=== PATIENT | male | born 1960 | race Two or more races ===

== ENCOUNTER 2025-02-28 11:28 | Inpatient (IN) | payer MEDICAID, OTHER ==
[~2025-02-28] VITALS: Ht 172.7 cm; Wt 53.2 kg
--- NOTE | 2025-02-28 11:53 | ED.PDOC ---
GI ASSESSMENT HPI Comments 64 y.o male presents to the ED for a chief complaint of nausea and vomiting that started 2 days ago. Patient states having a 3 vessel CABG on 02/13/25 at [facility] and at that time was experiencing chest pain. Patient states since being d/c from hospital, has no experienced chest pain. He denies any abdominal pain, fever, chills, diarrhea, runny nose, cough or sore throat. Chief Complaint: Nausea/Vomiting Time Seen by MD: 11:37 Reviewed Notes: Nurses Notes, Medications, Allergies Allergies: Coded Allergies: NO KNOWN ALLERGIES (Unverified , 02/28/25) Information Source: Patient Mode of Arrival: Ambulatory Timing: Days (2) Duration: Since onset Quality: None Vomitus: Hard Severity: Moderate Recent: None Recent Hx of: None Pain Location: None Modifying Factors: Nothing Associated sign and symptoms: Nausea, Vomiting Past Medical History Surgical History: CABG Family History Family History: Reviewed,noncontributory to illness Social History Smoker: Non-Smoker Alcohol: Denies ETOH Use Drugs: Denies Drug Use Lives In: Home Constitutional: denies: chills, diaphoresis, fatigue, fever, malaise, sweats, weakness, others EENTM: denies: blurred vision, double vision, ear bleeding, ear discharge, ear drainage, ear pain, ear ringing, eye pain, eye redness, hearing loss, mouth pain, mouth swelling, nasal discharge, nose bleeding, nose congestion, nose pain, photophobia, tearing, throat pain, throat swelling, voice changes, others Respiratory: denies: cough, hemoptysis, orthopnea, SOB at rest, shortness of breath, SOB with excertion, stridor, wheezing, others Cardiovascular: denies: chest pain, dizzy spells, diaphoresis, Dyspnea on e xertion, edema, irregular heart beat, left arm pain, lightheadedness, palpitations, PND, syncope, others Gastrointestinal: reports: nausea, vomiting; denies: abdomen distended, abdominal pain, blood streaked bowels, constipated, diarrhea, dysphagia, difficulty swallowing, hematemesis, melena, poor appetite, poor fluid intake, rectal bleeding, rectal pain, others Genitourinary: denies: burning, dysuria, flank pain, frequency, hematuria, incontinence, penile discharge, penile sore, pain, testicle pain, testicle swelling, urgency, others Neurological: denies: dizziness, fainting, headache, left sided numbness, left sided weakness, numbness, paresthesia, pre-existing deficit, right sided numbness, right sided weakness, seizure, speech problems, tingling, tremors, weakness, others Musculoskeletal: denies: back pain, gout, joint pain, joint swelling, muscle pain, muscle stiffness, neck pain, others Integumetry: denies: bruises, change in color, change in hair/nails, dryness, laceration, lesions, lumps, rash, wounds, others Allergic/Immunocompromised: denies: Difficulty Healing, Frequent Infections, Hives, Itching, others Hematologic/Lymphatic: denies: anemia, blood clots, easy bleeding, easy bruisin g, swollen glands, others Endocrine: denies: excessive hunger, excessive sweating, excessive thirst, excessive urination, flushing, intolerance to cold, intolerance to heat, unexplained weight gain, unexplained weight loss, others All Other Systems: Reviewed and Negative Physical Exam Exam Comments Actively vomiting General Appearance: Moderate Distress HEENT: Normal ENT Inspection, Pharynx Normal, TMs Normal Neck: Full Range of Motion, Non-Tender, Normal, Normal Inspection Respiratory: Chest Non-Tender, Lungs Clear, No Accessory Muscle Use, No Respiratory Distress, Normal Breath Sounds Cardiovascular: Tachycardia Breast Exam: Deferred Gastrointestinal: No Organomegaly, Non Tender, No Pulsatile Mass, Normal Bowel Sounds, Soft Genitalia: Deferred Pelvic: Deferred Rectal: Deferred Extremities: No calf tenderness, Normal capillary refill, Normal inspection, Normal range of motion, Non-tender, No pedal edema Musculoskeletal : Apperance: Normal Neurologic: Alert, in home sales consultant II-XII nml as Tested, No Motor Deficits, Normal Affect, Normal Mood, No Sensory Deficits Cerebellar Function: Normal Reflexes: Normal Skin: Dry, Normal Color, Warm Lymphatic: No Adenopathy EKG EKG #1: Comments EKG 1. At 12:16 p.m.. Sinus tachycardia rate of [address] elevation in lead V2. T-wave inversion V1 V2 V4 V5. EKG #2: Comments EKG 2. 2:14 p.m.. Sinus tachycardia rate of 142, LVH with strain. Was a procedure done? Was a procedure done?: No GI differential Dx Differential Diagnosis: N/A Other Differential Diagnosis Gastroenteritis, dehydration, STEMI, angina, PE, electrolyte disturbance, appendicitis, diverticulitis X-Ray, Labs, Meds, VS Vital Signs Date Time Temp Pulse Resp B/P (MAP) Pulse Ox O2 Delivery O2 Flow Rate FiO2 02/28/25 14:14 142 02/28/25 13:07 20 98 Room Air* 0 21 02/28/25 13:07 97.9 137 20 106/58 (74) 98 97.9 02/28/25 11:37 97.6 100 18 110/64 100 97.6 Lab Test 02/28/25 13:52 02/28/25 13:32 02/28/25 11:50 Range/Units POC Glucose 170 H 70-106 mg/dl Troponin I High Sensitivity 9 11 </=54 ng/L White Blood Count 3.8 L 4.4-10.8 10^3/uL Red Blood Count 4.42 L 4.5-5.90 10^6/uL Hemoglobin 13.7 13.5-17.5 g/dL Hematocrit 41.5 41.0-53.0 % Mean Corpuscular Volume 94.1 80.0-100.0 fL Mean Corpuscular Hemoglobin 31.1 28.0-32.0 pg Mean Corpuscular Hemoglobin Concent 33.0 32.0-36.0 g/dL Red Cell Distribution Width 13.7 11.8-14.3 % Platelet Count 381 140-450 10^3/uL Mean Platelet Volume 6.6 L 6.9-10.8 fL Neutrophils (%) (Auto) 77.6 37.0-80.0 % Lymphocytes (%) (Auto) 17.2 10.0-50.0 % Monocytes (%) (Auto) 4.9 0.0-12.0 % Eosinophils (%) (Auto) 0.0 0.0-7.0 % Basophils (%) (Auto) 0.3 0.0-2.0 % Neutrophils # (Auto) 2.9 1.6-8.6 10 ^3/uL Lymphocytes # (Auto) 0.7 0.4-5.4 10 ^3/uL Monocytes # (Auto) 0.2 0-1.3 10 ^3/uL Eosinophils # (Auto) 0 0-0.8 10 ^3/uL Basophils # (Auto) 0 0-0.2 10 ^3/uL Nucleated Red Blood Cells 0.1 % Erythrocyte Sedimentation Rate 36 H 0-20 mm/hr Prothrombin Time 13.2 H 9.3-11.8 sec Prothrombin Time INR 1.28 H 0.9-1.15 Activated Partial Thromboplast Time 37.8 H 24.5-34.5 SEC Sodium Level 135 L 136-145 mmol/L Potassium Level 4.9 3.5-5.1 mmol/L Chloride Level 98 98-107 mmol/L Carbon Dioxide Level 14 L 20-31 mmol/L Anion Gap 23 H 5-15 Blood Urea Nitrogen 35 H 9-23 mg/dL Creatinine 1.39 H 0.700-1.30 mg/dL Glomerular Filtration Rate Calc 57 >90 mL/min BUN/Creatinine Ratio 25.2 H 10.0-20.0 Serum Glucose 176 H 74-106 mg/dL Hemoglobin A1c 7.5 H <5.7 % A1C Calcium Level 8.8 8.7-10.4 mg/dL Magnesium Level 2.3 1.6-2.6 mg/dL Total Bilirubin 1.2 H 0.2-1.0 mg/dL Aspartate Amino Transferase (AST) 61 H 13-40 U/L Alanine Aminotransferase (ALT) 22 7-40 U/L Alkaline Phosphatase 142 H 46-116 U/L C-Reactive Protein High Sensitivity > 20.00 H <1.0 mg/dL Total Protein 7.5 5.7-8.2 g/dL Albumin 4.4 3.2-4.8 g/dL Lipase 53 12-53 U/L Thyroid Stimulating Hormone (TSH) 2.08 0.55-4.78 uIU/mL Current Medications Medications (Trade) Dose Ordered Sig/Danielle Route Start Time Stop Time Status Last Admin Ondansetron HCl (Zofran) 4 mg ONCE ONCE IV 02/28/25 11:45 02/28/25 11:46 DC 02/28/25 12:06 Sodium Chloride 1,000 ml @ 1,000 mls/hr Q1H ONCE IV 02/28/25 11:45 02/28/25 12:44 DC 02/28/25 12:07 Sodium Chloride 1,000 ml @ 1,000 mls/hr Q1H ONCE IV 02/28/25 14:30 02/28/25 15:29 DC 02/28/25 14:36 64-year-old male presents here with vomiting x3 days. He has a recent cardiac bypass done a proximally 2 weeks ago on February 13 at [facility]. He states at that time he went into the hospital with chest pain. He has not had chest pain since then however he is having vomiting x3 days. Denies any abdominal pain no recent cough cold runny nose fever or chills. At this time I have contacted Dr. Wilkerson mortar mixer operator on-call at 11:45 a.m.. EKG was sent him and I discussed patient's case with the mortar mixer operator. I have ordered a CBC, CMP, troponin, EKG, CT abdomen pelvis, UA chest Xray At this time CBC has returned with normal WBC count. CMP however demonstrates multiple electrolyte abnormalities including anion gap of 23 CO2 14 and acute kidney injury of 1.39. Patient appears significantly dehydrated. Patient was found to initially be tachycardic at 108.. However after 1 L of fluids his heart rate increased to 142. CT abdomen pelvis was done with no significant pathology except for constipation. And concern for pericardial effusion. Cardiology consult was placed by myself given his recent CABG proximally 2 weeks ago and current vomiting with a pericardial effusion. At this time patient's heart rate continues to fluctuate between 80-142. I have given him a 2 L of IV fluids also. At this time hospitalist team has been contacted for admission. Time of 1ST Reevaluation: 13:07 Reevaluation 1ST: Unchanged Patient Education/Counseling: Diagnosis, Treatment, Prognosis Family Education/Counseling: No Family Present SEPSIS Sepsis Screen Date sepsis recognized/suspect: Feb 28, 2025 Time Sepsis recognized/suspect: 1139 Recent Procedure: No On Antibiotic Therapy: No Respiratory Rate >20: No Heart Rate >90: Yes Temp<36 C (96.8 F) or >38.3 C: No SBP <90 or MAP <65 mmHG: No New Acute Mental Status Change: No Is the patient on CPAP, BIPAP,: No Physician Orders Chest Two Views Routine (02/28/25 11:40) Plug Assembler (02/28/25 11:40) Electrocardigram (02/28/25 11:40) Electrocardigram (02/28/25 12:40) Electrocardigram (02/28/25 14:40) Ct Ab Pel Wo Con-No Oral Or Iv (02/28/25 11:55) * Cardiology Consult (02/28/25 14:28) Vital Signs Date Time Temp Pulse Resp B/P (MAP) Pulse Ox O2 Delivery O2 Flow Rate FiO2 02/28/25 14:14 142 02/28/25 13:07 20 98 Room Air* 0 21 02/28/25 13:07 97.9 137 20 106/58 (74) 98 97.9 02/28/25 11:37 97.6 100 18 110/64 100 97.6 Laboratory Tests Test 02/28/25 11:50 White Blood Count 3.8 10^3/uL (4.4-10.8) L Medications Medications Dose Ordered Sig/Danielle Route Start Time Stop Time Status Last Admin Dose Admin Ondansetron HCl 4 mg ONCE ONCE IV 02/28/25 11:45 02/28/25 11:46 DC 02/28/25 12:06 Sodium Chloride 1,000 ml @ 1,000 mls/hr Q1H ONCE IV 02/28/25 11:45 02/28/25 12:44 DC 02/28/25 12:07 Sodium Chloride 1,000 ml @ 1,000 mls/hr Q1H ONCE IV 02/28/25 14:30 02/28/25 15:29 DC 02/28/25 14:36 Departure 1 Departure Time of Disposition: 17:56 Impression: Primary Impression: Vomiting Qualified Codes: R11.2 - Nausea with vomiting, unspecified Additional Impressions: Dehydration Tachycardia Pericardial effusion Disposition: ADMITTED INPATIENT Condition: Fair Critical Care Note Critical Care Time?: Yes (45 min-critical care time only) Critical care comment: Multiple re-evaluations of the patient. Contacting mortar mixer operator,, speaking to nursing staff, speaking to the patient, managing patient's heart rate and managing and interpreted the patient's lab work and abnormalities Stability Stability form required: No Heart Score Heart Score: Heart Score Response (Comments) Value History N/A 0 EKG N/A 0 Age N/A 0 Risk Factors N/A 0 Troponin N/A 0 Total 0 I personally scribed for MAYANK HOUSE MD ([email or web address]) on 02/28/25 at 13:10. Electronically submitted by Zahida West ([facility]). MAYANK HOUSE MD Feb 28, 2025 11:53
[2025-02-28 12:03] LABS: Hematocrit 41.5 % (41.0-53.0); Hemoglobin 13.7 g/dL (13.5-17.5); Mean Corpuscular Hemoglobin 31.1 pg (28.0-32.0); Mean Corpuscular Volume 94.1 fL (80.0-100.0); Nucleated Red Blood Cells % 0.1 %
[2025-02-28] MEDS: ONDANSETRON HCL 4 MG/2 ML VIAL IV ONE (12:06)
[2025-02-28] MEDS: SODIUM CHLORIDE 0.9% 1,000 ML IV ONE ×2 (12:07→14:36)
--- NOTE | 2025-02-28 12:18 | DVH ---
EXAM DESCRIPTION: Chest 2 View CLINICAL HISTORY: Recent CABG COMPARISON: None FINDINGS and IMPRESSION: Lines, tubes, and support devices: None. Lungs / Pleura: No consolidation. No pleural effusion. No pneumothorax. Mediastinum: Normal cardiomediastinal silhouette. Osseous structures / Soft tissues: No acute findings. Sternotomy wires in place.
[2025-02-28 12:20] LABS: Alanine Aminotransferase 22 U/L (7-40); Albumin 4.4 g/dL (3.2-4.8); Anion Gap 23 (5-15); BUN/Creatinine Ratio 24.8 (10.0-20.0); Potassium 4.9 mmol/L (3.5-5.1); Total Protein 7.5 g/dL (5.7-8.2)
[2025-02-28 12:21] LABS: Bilirubin, Total 1.2 mg/dL (0.2-1.0)
[2025-02-28 12:25] LABS: Alkaline Phosphatase 142 U/L (46-116); Blood Urea Nitrogen 34 mg/dL (9-23); Calcium 8.6 mg/dL (8.7-10.4); Carbon Dioxide 15 mmol/L (20-31); Chloride 97 mmol/L (98-107); Glucose 175 mg/dL (74-106); Sodium 135 mmol/L (136-145)
[2025-02-28 13:07] VITALS: RESP 20; O2SAT 98
--- NOTE | 2025-02-28 13:12 | DVH ---
EXAM: CT CT AB PEL WO CON-NO ORAL OR IV INDICATION: Vomiting TECHNIQUE: Volumetric multidetector CT images of the abdomen and pelvis were obtained without contrast. All CT scans at this facility use dose modulation, iterative reconstruction, and/or weight based dosing when appropriate to reduce radiation dose to as low as reasonably achievable. COMPARISON: None FINDINGS: [LOWER CHEST]: Trace left pleural effusion. coronary artery calcifications. Possible retrosternal soft tissue density versus fluid which may be related to postoperative state measuring 1.3 x 4.4 cm. Small pericardial effusion [LIVER]: Normal hepatic size without suspicious focal lesion. [GALLBLADDER AND BILIARY TREE]: No cholelithiasis. [SPLEEN]: Unremarkable. [PANCREAS]: Unremarkable. [ADRENAL GLANDS]: Unremarkable [KIDNEYS]: No hydronephrosis. No nephroureterolithiasis. No suspicious focal lesion. [BLADDER]: Unremarkable for the degree distention. [REPRODUCTIVE ORGANS]: Unremarkable. [BOWEL/MESENTERY]: Stomach is normal. No CT evidence of bowel obstruction. mild stool burden [ASCITES]: Absent [LYMPHADENOPATHY]: No pathologically enlarged lymph nodes by CT size criteria [VASCULATURE]: No aneurysmal dilatation. [ABDOMINAL WALL]: Trace fat containing right inguinal hernia [MUSCULOSKELETAL]: No acute fracture or aggressive focal osseous lesion. Multifocal degenerative change of the visualized spine. IMPRESSION: 1. Presumed postsurgical retrosternal fluid collection/ hematoma. 2. Trace pericardial effusion. 3. [id number] stool burden. No CT evidence of bowel obstruction.
[2025-02-28] MEDS ORDERED: MORPHINE SULFATE INJ 2 MG/ml SYRG IV PRN ×2 (14:45)
[2025-02-28] MEDS ORDERED: ACETAMINOPHEN 325 MG TAB PO PRN (14:45)
[2025-02-28] MEDS ORDERED: HYDROcodone-ACET 5/325MG TAB PO PRN (14:45)
[2025-02-28] MEDS ORDERED: NITROGLYCERIN 0.4 MG SL TAB SL PRN (14:45)
--- NOTE | 2025-02-28 14:46 | DVHHP2 ---
History of Present Illness History of Present Illness 64 y.o male presents to the ED for a chief complaint of nausea and vomiting that started 2 days ago. Patient states having a 3 vessel CABG on 02/13/25 at [facility] and at that time was experiencing chest pain. Patient states since being d/c from hospital, has no experienced chest pain. He denies any abdominal pain, fever, chills, diarrhea, runny nose, cough or sore throat. Review of Systems Constitutional: No: Fever, Chills, Sweats, Weakness, Malaise, Other Respiratory: No: Cough, Dry, Shortness of breath, SOB with excertion, Wheezing, Hemoptysis, Pleuritic Pain, Sputum, Wheezing, Other Cardiovascular: No: Chest Pain, Palpitations, Orthopnea, Paroxysmal Noc. Dyspnea, Edema, Lt Headedness, Other Gastrointestinal: Nausea, Vomiting Neurological: No: Weakness, Numbness, Incoordination, Change in speech, Confusion, Seizures, Other Allergies: Coded Allergies: NO KNOWN ALLERGIES (Unverified , 02/28/25) Exam Vital Signs Vital Signs Date Time Temp Pulse Resp B/P (MAP) Pulse Ox O2 Delivery O2 Flow Rate FiO2 02/28/25 13:07 20 98 Room Air* 0 21 02/28/25 13:07 97.9 137 106/58 (74) 97.9 Exam GEN: Healthy appearing, well-developed, NAD. HEENT: NC/AT; MMM. CV: RRR, no m/r/g. LUNGS: CTAB, no w/r/c. ABD: Soft, NT/ND, NBS, no masses or organomegaly. EXT: skin Warm, well perfused. no rashes. No clubbing, cyanosis, or edema. NEURO: Ambulating with no limitations. No focal deficits. Labs/Xrays Labs Test 02/28/25 13:52 02/28/25 13:32 02/28/25 11:50 Range/Units POC Glucose 170 H 70-106 mg/dl Troponin I High Sensitivity 9 </=54 ng/L White Blood Count 3.8 L 4.4-10.8 10^3/uL Red Blood Count 4.42 L 4.5-5.90 10^6/uL Hemoglobin 13.7 13.5-17.5 g/dL Hematocrit 41.5 41.0-53.0 % Mean Corpuscular Volume 94.1 80.0-100.0 fL Mean Corpuscular Hemoglobin 31.1 28.0-32.0 pg Mean Corpuscular Hemoglobin Concent 33.0 32.0-36.0 g/dL Red Cell Distribution Width 13.7 11.8-14.3 % Platelet Count 381 140-450 10^3/uL Mean Platelet Volume 6.6 L 6.9-10.8 fL Neutrophils (%) (Auto) 77.6 37.0-80.0 % Lymphocytes (%) (Auto) 17.2 10.0-50.0 % Monocytes (%) (Auto) 4.9 0.0-12.0 % Eosinophils (%) (Auto) 0.0 0.0-7.0 % Basophils (%) (Auto) 0.3 0.0-2.0 % Neutrophils # (Auto) 2.9 1.6-8.6 10 ^3/uL Lymphocytes # (Auto) 0.7 0.4-5.4 10 ^3/uL Monocytes # (Auto) 0.2 0-1.3 10 ^3/uL Eosinophils # (Auto) 0 0-0.8 10 ^3/uL Basophils # (Auto) 0 0-0.2 10 ^3/uL Nucleated Red Blood Cells 0.1 % Sodium Level 135 L 136-145 mmol/L Potassium Level 4.9 3.5-5.1 mmol/L Chloride Level 97 L 98-107 mmol/L Carbon Dioxide Level 15 L 20-31 mmol/L Anion Gap 23 H 5-15 Blood Urea Nitrogen 34 H 9-23 mg/dL Creatinine 1.37 H 0.700-1.30 mg/dL Glomerular Filtration Rate Calc 58 >90 mL/min BUN/Creatinine Ratio 24.8 H 10.0-20.0 Serum Glucose 175 H 74-106 mg/dL Calcium Level 8.6 L 8.7-10.4 mg/dL Total Bilirubin 1.2 H 0.2-1.0 mg/dL Aspartate Amino Transferase (AST) 61 H 13-40 U/L Alanine Aminotransferase (ALT) 22 7-40 U/L Alkaline Phosphatase 142 H 46-116 U/L Total Protein 7.5 5.7-8.2 g/dL Albumin 4.4 3.2-4.8 g/dL Lipase 53 12-53 U/L SEPSIS Sepsis Screen Date sepsis recognized/suspect: Feb 28, 2025 Time Sepsis recognized/suspect: 1307 Recent Procedure: No On Antibiotic Therapy: No Respiratory Rate >20: No Heart Rate >90: Yes Temp<36 C (96.8 F) or >38.3 C: No SBP <90 or MAP <65 mmHG: No New Acute Mental Status Change: No Is the patient on CPAP, BIPAP,: No Physician Orders Urinalysis (02/28/25 11:40) Chest Two Views Routine (02/28/25 11:40) Visitor Services Specialist (02/28/25 11:40) Electrocardigram (02/28/25 11:40) Troponin-I Hs (02/28/25 14:40) Electrocardigram (02/28/25 12:40) Electrocardigram (02/28/25 14:40) Ct Ab Pel Wo Con-No Oral Or Iv (02/28/25 11:55) Sodium Chloride 0.9% (02/28/25 14:30) * Cardiology Consult (02/28/25 14:28) Vital Signs Date Time Temp Pulse Resp B/P (MAP) Pulse Ox O2 Delivery O2 Flow Rate FiO2 02/28/25 13:07 20 98 Room Air* 0 21 02/28/25 13:07 97.9 137 20 106/58 (74) 98 97.9 02/28/25 11:37 97.6 100 18 110/64 100 97.6 Laboratory Tests Test 02/28/25 11:50 White Blood Count 3.8 10^3/uL (4.4-10.8) L Medications Medications Dose Ordered Sig/Danielle Route Start Time Stop Time Status Last Admin Dose Admin Ondansetron HCl 4 mg ONCE ONCE IV 02/28/25 11:45 02/28/25 11:46 DC 02/28/25 12:06 4 MG Sodium Chloride 1,000 ml @ 1,000 mls/hr Q1H ONCE IV 02/28/25 11:45 02/28/25 12:44 DC 02/28/25 12:07 1,000 MLS/HR Sodium Chloride 1,000 ml @ 1,000 mls/hr Q1H ONCE IV 02/28/25 14:30 02/28/25 15:29 02/28/25 14:36 1,000 MLS/HR Assessment/Plan Assessment/Plan Diagnosis: Pericardial effusion Gastroenteritis, infectious etiology likely Coronary artery disease, history three-vessel CABG 02/13/2025 Plan: Cardiology consult IV fluids Ceftriaxone Flagyl Prn pain control Echo stat Tele Full code Plan discussed with: Patient Date of Service: Feb 28, 2025 Billing Provider: ANNE-MARIE KRISHNA MD Common Visit Codes: [id number] INP/OBS CARE (HIGH) ANNE-MARIE KRISHNA MD Feb 28, 2025 14:46
[2025-02-28 15:04] LABS: Potassium 4.9 mmol/L (3.5-5.1)
[2025-02-28 15:05] LABS: Anion Gap 23 (5-15); Calcium 8.8 mg/dL (8.7-10.4)
[2025-02-28 15:10] LABS: BUN/Creatinine Ratio 25.2 (10.0-20.0); Blood Urea Nitrogen 35 mg/dL (9-23); Carbon Dioxide 14 mmol/L (20-31); Chloride 98 mmol/L (98-107); Glucose 176 mg/dL (74-106); Sodium 135 mmol/L (136-145)
[2025-02-28] MEDS: PANTOPRAZOLE 40 MG/10 ML VIAL INJ IV SCH (15:24)
[2025-02-28] MEDS: methylPREDNISolone SOD SUCC 40 MG/ML VL IV ONE (15:25)
[2025-02-28 15:45] LABS: Magnesium 2.3 mg/dL (1.6-2.6)
--- NOTE | 2025-02-28 15:54 | DVHCONRES ---
Date Seen: Feb 28, 2025 Resident Creating Document: COLIN SCHAEFFER RESIDENT Referring Physician Dr Turcios Reason for Consultation Cardiology was consulted due to the persistent tachycardia and presence of the pericardial effusion. History of Present Illness Phani Bay is a 64-year-old male with PMHx significant for diabetes who is post-operative day 15 from CABG x1, performed on 02/13 in [place]. Also he had postop afib He presents with 2 days of nausea, vomiting, chills, and documented fever at home, Tmax 101 per his sister. He reports poor oral intake and generalized weakness. He denies chest pain, shortness of breath, palpitations, syncope, abdominal pain, or diarrhea. On arrival, he was noted to be tachycardic, with heart rate fluctuating from 80 to 140 bpm, but he remained in sinus tachycardia on telemetry and EKG. No episodes of atrial fibrillation were documented. His sternotomy wound appears clean without erythema or drainage. A CT chest/abdomen was obtained, revealing a trace pericardial effusion and a po stsurgical retrosternal fluid collection/hematoma, with no evidence of obstruction. Initial labs notable for WBC 3.8, anion gap 23, bicarbonate 15, creatinine 1.37, total bilirubin 1.2, consistent with mild anion gap metabolic acidosis and possible sepsis vs dehydration. Cardiology was consulted due to the persistent tachycardia and presence of the pericardial effusion. Echocardiogram is pending. Past Medical History Surgical History: CABG Family History Family History: Reviewed,noncontributory to illness Social History Smoker: Non-Smoker Alcohol: Denies ETOH Use Drugs: Denies Drug Use Lives In: Home CBC: WBC 3.8, Hgb 13.7 BMP: CO 15, AG 23, Cr 1.37 LFTs: Tbili 1.[address] Chest/Abdomen (02/28): Trace pericardial effusion Presumed postsurgical retrosternal fluid collection/hematoma Mild to moderate stool burden Right fat-containing inguinal hernia No obstruction No acute osseous abnormality EKG: Sinus tachycardia. Echo: Pending. Allergies: Coded Allergies: NO KNOWN ALLERGIES (Unverified , 02/28/25) Current Medications Current Medications Medications (Trade) Dose Ordered Sig/Danielle Route PRN Reason Start Time Stop Time Status Last Admin Acetaminophen (Tylenol Tablet) 325 mg Q4HP PRN PO MILD PAIN (1-3 PAIN SCALE) 02/28/25 14:45 Acetaminophen/ Hydrocodone Bitart (Lyman 5/325MG Tab) 1 tab Q4HP PRN PO MODERATE PAIN (4-6 PAIN SCALE) 02/28/25 14:45 Morphine Sulfate 2 mg Q4HPRN PRN IV SEVERE PAIN (7-10 PAIN SCALE) 02/28/25 14:45 Nitroglycerin (Ntrostat Sublingual) 0.4 mg Q5MINP PRN SL FOR CHEST PAIN 02/28/25 14:45 Morphine Sulfate 2 mg Q30M PRN IV FOR CHEST PAIN 02/28/25 14:45 Ceftriaxone Sodium 50 ml @ 100 mls/hr DAILY@09 IV 02/28/25 15:00 Metronidazole 100 ml @ 100 mls/hr Q8HR IV 02/28/25 15:17 Pantoprazole Sodium (Protonix) 40 mg DAILY IV 02/28/25 15:00 Review of Systems Constitutional: Positive for fever, chills, malaise GI: Positive for nausea, vomiting; no abdominal pain Cardiac: Denies chest pain, palpitations Respiratory: Denies SOB, cough Neuro: Denies confusion or syncope All other systems reviewed and negative. Vital Signs Vital Signs Date Time Temp Pulse Resp B/P (MAP) Pulse Ox O2 Delivery O2 Flow Rate FiO2 02/28/25 13:07 20 98 Room Air* 0 21 02/28/25 13:07 97.9 137 106/58 (74) 97.9 Physical Exam General: Alert, fatigued, dehydrated appearance. HEENT: Dry mucous membranes. No JVD. Cardiac: Tachycardic, regular rhythm, no murmurs, rubs, or gallops. Chest: Sternotomy wound clean, dry, intact. No drainage or erythema. Respiratory: Lungs clear bilaterally, no wheezes or crackles. Abdomen: Soft, non-tender, non-distended. No rebound or guarding. Extremities: No edema. Warm, well perfused. Neuro: A&Ox3, no focal deficits. Skin: No rash. Labs/Diagnostic Data Labs Test 02/28/25 13:52 02/28/25 13:32 02/28/25 11:50 Range/Units POC Glucose 170 H 70-106 mg/dl Troponin I High Sensitivity 9 </=54 ng/L White Blood Count 3.8 L 4.4-10.8 10^3/uL Red Blood Count 4.42 L 4.5-5.90 10^6/uL Hemoglobin 13.7 13.5-17.5 g/dL Hematocrit 41.5 41.0-53.0 % Mean Corpuscular Volume 94.1 80.0-100.0 fL Mean Corpuscular Hemoglobin 31.1 28.0-32.0 pg Mean Corpuscular Hemoglobin Concent 33.0 32.0-36.0 g/dL Red Cell Distribution Width 13.7 11.8-14.3 % Platelet Count 381 140-450 10^3/uL Mean Platelet Volume 6.6 L 6.9-10.8 fL Neutrophils (%) (Auto) 77.6 37.0-80.0 % Lymphocytes (%) (Auto) 17.2 10.0-50.0 % Monocytes (%) (Auto) 4.9 0.0-12.0 % Eosinophils (%) (Auto) 0.0 0.0-7.0 % Basophils (%) (Auto) 0.3 0.0-2.0 % Neutrophils # (Auto) 2.9 1.6-8.6 10 ^3/uL Lymphocytes # (Auto) 0.7 0.4-5.4 10 ^3/uL Monocytes # (Auto) 0.2 0-1.3 10 ^3/uL Eosinophils # (Auto) 0 0-0.8 10 ^3/uL Basophils # (Auto) 0 0-0.2 10 ^3/uL Nucleated Red Blood Cells 0.1 % Sodium Level 135 L 136-145 mmol/L Potassium Level 4.9 3.5-5.1 mmol/L Chloride Level 98 98-107 mmol/L Carbon Dioxide Level 14 L 20-31 mmol/L Anion Gap 23 H 5-15 Blood Urea Nitrogen 35 H 9-23 mg/dL Creatinine 1.39 H 0.700-1.30 mg/dL Glomerular Filtration Rate Calc 57 >90 mL/min BUN/Creatinine Ratio 25.2 H 10.0-20.0 Serum Glucose 176 H 74-106 mg/dL Calcium Level 8.8 8.7-10.4 mg/dL Total Bilirubin 1.2 H 0.2-1.0 mg/dL Aspartate Amino Transferase (AST) 61 H 13-40 U/L Alanine Aminotransferase (ALT) 22 7-40 U/L Alkaline Phosphatase 142 H 46-116 U/L Total Protein 7.5 5.7-8.2 g/dL Albumin 4.4 3.2-4.8 g/dL Lipase 53 12-53 U/L Assessment 64-year-old male, POD 15 from CABG x1, presenting with fever, nausea/vomiting, leukopenia, metabolic acidosis, and tachycardia. Concern for sepsis (GI source). Trace pericardial effusion on CT. Patient had post op afib and he was DC on eliquis and aspirin. 1. Sepsis (GI source suspected) Fever, chills, leukopenia (WBC 3.8), AG 23, HCO 15 Nausea/vomiting and poor PO intake Tachycardia likely from systemic illness + dehydration Plan: Continue IV fluids Obtain blood cultures Continue broad-spectrum antibiotics: ceftriaxone + metronidazole Trend lactate Repeat CBC/CMP tomorrow Consider stool studies if diarrhea develops Monitor urine output 2. Sinus tachycardia (HR 38[address]) Likely multifactorial: fever, dehydration, metabolic stress. No afib. EKG with sinus tachycardia only. Plan: Treat underlying sepsis/dehydration Telemetry Hold beta blockers until volume status optimized 3. Trace pericardial effusion / Retrosternal hematoma Expected postop changes on POD 15. No tamponade signs. Plan: Follow echocardiogram Monitor vitals and exam Mild AG metabolic acidosis AG 23, bicarbonate 15. Plan: IV fluids Repeat BMP 5. Post-CABG care (POD 15) Plan: Continue antiplatelet and anticoagulation Monitor sternal wound (clean today) Pain control PRN 6. Diabetes Adjust insulin regimen once tolerating PO and not vomiting. Case discussed with Dr Wilkerson Plan discussed with: Patient COLIN SCHAEFFER RESIDENT Feb 28, 2025 15:54
[2025-02-28 16:12] LABS: INR 1.28 (0.9-1.15); Partial Thromboplastin Time 37.8 SEC (24.5-34.5); Prothrombin Time 13.2 sec (9.3-11.8)
[2025-02-28] MEDS: METOPROLOL TARTRATE 50 MG TAB PO SCH (17:00)
[2025-02-28 17:29] LABS: Amphetamine Screen, Urine Neg (NEGATIVE); Barbiturate Scree,Urine Neg (NEGATIVE); Benzodiazephine Screen, Urine Neg (NEGATIVE); Cannabinoid Screen, Urine Neg (NEGATIVE); Cocaine Screen, Urine Neg (NEGATIVE); Opiate Scree,Urine Neg (NEGATIVE); Phencyclidine Screen, Urine Neg (NEGATIVE)
[2025-02-28 17:30] LABS: Urine Protein, UAD TRACE (Negative)
[2025-02-28] MEDS: SODIUM CHLORIDE 0.9% 1,000 ML IV STA (17:32)
[2025-02-28] MEDS: MIDODRINE HCL 10 MG TAB PO SCH (17:45)
[2025-02-28] MEDS: HYDROCORTISONE SOD SUCC 100 MG/2ML INJ VIAL IV SCH (18:43)
[2025-02-28] MEDS: MIDODRINE HCL 10 MG TAB PO STA (20:52)
[2025-02-28 23:10] VITALS: PULSE 79; RESP 18; O2SAT 99
[2025-02-28] MEDS: NOREPINEPHRINE 8 MG/250ML KIT 250 ML IV SCH (23:26)
[2025-02-28] MEDS ORDERED: CLOP75TA28 PO (23:31)
[2025-02-28] MEDS ORDERED: APIX5TAB PO (23:33)
[2025-02-28] MEDS ORDERED: MET25T PO (23:33)
[2025-02-28] MEDS ORDERED: ATOR-507 PO (23:33)
[2025-03-01] VITALS (71 sets, daily range): BP systolic 90–127; BP diastolic 39–54; PULSE 66–143; RESP 11–36; TEMP 97.8–98.7; O2SAT 95–100
[2025-03-01] MEDS: ENOXAPARIN SOD 100 MG/1 ML SYRINGE SC SCH (00:15)
[2025-03-01] MEDS: PHENYLEPHRINE IV 250 ML IV SCH (02:16)
[2025-03-01 02:27] LABS: Hematocrit 37.1 % (41.0-53.0); Hemoglobin 12.2 g/dL (13.5-17.5); Mean Corpuscular Hemoglobin 31.4 pg (28.0-32.0); Mean Corpuscular Volume 95.4 fL (80.0-100.0); Nucleated Red Blood Cells % 0.4 %
[2025-03-01 03:13] LABS: Alanine Aminotransferase 18 U/L (7-40); Albumin 3.8 g/dL (3.2-4.8); Anion Gap 21 (5-15); BUN/Creatinine Ratio 20.6 (10.0-20.0); Blood Urea Nitrogen 20 mg/dL (9-23); Chloride 104 mmol/L (98-107); Total Protein 6.6 g/dL (5.7-8.2)
[2025-03-01 03:14] LABS: Bilirubin, Total 0.6 mg/dL (0.2-1.0)
[2025-03-01 03:47] LABS: Potassium 5.5 mmol/L (3.5-5.1); Sodium 135 mmol/L (136-145)
[2025-03-01 03:48] LABS: Alkaline Phosphatase 118 U/L (46-116); Calcium 8.5 mg/dL (8.7-10.4); Glucose 235 mg/dL (74-106)
[2025-03-01 03:52] LABS: Carbon Dioxide 10 mmol/L (20-31)
--- NOTE | 2025-03-01 09:30 | ECG ---
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
[2025-03-01] MEDS: ALBUTEROL SULF 2.5 MG/0.5ML(0.5%) NEB SOLN NEB ONE (10:09)
[2025-03-01] MEDS: SODIUM ZIRCONIUM CYCL 10 GM PAK PO ONE (10:44)
--- NOTE | 2025-03-01 10:48 | DVH ---
CHEST RADIOGRAPH Indication: confirm line placement Technique: Single frontal view of the chest was obtained Comparison: None FINDINGS: Lines and Tubes: Right internal jugular catheter in place within the right atrium or at the cavoatrial junction. Sternal wire sutures in place Lungs: No focal consolidation. Pleura: No effusion. No pneumothorax. Cardiomediastinal contours: Unremarkable Bones: No acute osseous abnormality. IMPRESSION: 1. Central line in place in the right internal jugular vein with the tip at the cavoatrial junction or within the right atrium. 2. No pneumothorax on the right
--- NOTE | 2025-03-01 10:58 | DVHPN2 ---
Reviewed: H&P Changes from previous H/P or p: No Changes General: Per HPI Cardiovascular: No Chest Pain, No Palpitations, No Orthopnea, No Paroxysmal Noc. Dyspnea, No Edema, No Lt Headedness, No Other Respiratory: No Cough, No Dry, No Shortness of breath, No SOB with excertion, No Wheezing, No Hemoptysis, No Pleuritic Pain, No Sputum, No Other Gastrointestinal: Nausea, Vomiting Objective Vitals Vital Signs Date Time Temp Pulse Resp B/P (MAP) Pulse Ox O2 Delivery O2 Flow Rate FiO2 03/01/25 10:10 18 99 Room Air* 0 21 03/01/25 09:15 84 03/01/25 07:28 97.9 96/51 (66) 97.9 Intake/Output Intake and Output 03/01/25 07:00 Intake Total 3316.25 ml Output Total 1300 ml Balance 2016.25 ml Intake IV Total 3316.25 ml Output Urine Total 1300 ml Exam GEN: Healthy appearing, well-developed, NAD. HEENT: NC/AT; MMM. Right IJ CvC CV: RRR, no m/r/g. LUNGS: CTAB, no w/r/c. ABD: Soft, NT/ND, NBS, no masses or organomegaly. EXT: skin Warm, well perfused. no rashes. No clubbing, cyanosis, or edema. NEURO: Ambulating with no limitations. No focal deficits. Medications Current Medications Medications Dose Ordered Sig/Danielle Route Start Time Stop Time Status Last Admin Dose Admin Acetaminophen 325 mg Q4HP PRN PO 02/28/25 14:45 Acetaminophen/ Hydrocodone Bitart 1 tab Q4HP PRN PO 02/28/25 14:45 Morphine Sulfate 2 mg Q4HPRN PRN IV 02/28/25 14:45 Nitroglycerin 0.4 mg Q5MINP PRN SL 02/28/25 14:45 Morphine Sulfate 2 mg Q30M PRN IV 02/28/25 14:45 Ceftriaxone Sodium 50 ml @ 100 mls/hr DAILY@09 IV 02/28/25 15:00 03/01/25 09:41 100 MLS/HR Metronidazole 100 ml @ 100 mls/hr Q8HR IV 02/28/25 15:17 03/01/25 06:11 100 MLS/HR Pantoprazole Sodium 40 mg DAILY IV 02/28/25 15:00 03/01/25 09:41 40 MG Metoprolol Tartrate 50 mg BID PO 02/28/25 16:30 Aspirin 81 mg DAILY PO 03/01/25 10:00 03/01/25 09:41 81 MG Midodrine 10 mg BIDD PO 02/28/25 18:00 03/01/25 06:31 10 MG Hydrocortisone Sodium Succinate 50 mg BIDD IV 02/28/25 17:35 03/01/25 06:30 50 MG Phenylephrine HCl 250 ml @ 30 mls/hr Q8H20M IV 03/01/25 02:15 03/01/25 07:01 67.5 MLS/HR Norepinephrine Bitartrate 250 ml @ 3.75 mls/hr Q24H IV 03/01/25 10:30 Enoxaparin Sodium 60 mg BID SC 03/01/25 22:00 Laboratory Results Laboratory Tests 03/01/25 02:15 Chemistry Test 02/28/25 11:50 03/01/25 02:15 Albumin 4.4 g/dL (3.2-4.8) 3.8 g/dL (3.2-4.8) Calcium Level 8.8 mg/dL (8.7-10.4) 8.5 mg/dL (8.7-10.4) L Magnesium Level 2.3 mg/dL (1.6-2.6) Total Protein 7.5 g/dL (5.7-8.2) 6.6 g/dL (5.7-8.2) Coagulation Test 02/28/25 11:50 Prothrombin Time 13.2 sec (9.3-11.8) H Prothrombin Time INR 1.28 (0.9-1.15) H Activated Partial Thromboplast Time 37.8 SEC (24.5-34.5) H Lipid panel Test 02/28/25 11:50 Lipase 53 U/L (12-53) LFT Test 02/28/25 11:50 03/01/25 02:15 Alanine Aminotransferase (ALT) 22 U/L (7-40) 18 U/L (7-40) Alkaline Phosphatase 142 U/L (46-116) H 118 U/L (46-116) H Aspartate Amino Transferase (AST) 61 U/L (13-40) H 34 U/L (13-40) Total Bilirubin 1.2 mg/dL (0.2-1.0) H 0.6 mg/dL (0.2-1.0) HgA1c, TSH Test 02/28/25 11:50 Hemoglobin A1c 7.5 % A1C (<5.7) H Thyroid Stimulating Hormone (TSH) 2.08 uIU/mL (0.55-4.78) Urinalysis Test 02/28/25 17:04 Urine Color Light-yellow (Yellow) Urine Clarity Clear (Clear) Urine pH 5.0 (5.0-9.0) Urine Specific [place] 1.020 (1.001-1.035) Urine Protein Trace (Negative) H Urine Ketones 3+ (Negative) H Urine Blood Negative /uL (Negative) Urine Nitrite Negative (Negative) Urine Bilirubin Negative (Negative) Urine Urobilinogen Normal mg/dL (Negative) Urine Leukocyte Esterase Negative /uL (Negative) Urine RBC 1 /hpf (0 - 3) Urine Microscopic WBC 2 /HPF (0-3) Urine Squamous Epithelial Cells Few /hpf (<5) Urine Bacteria None seen /hpf (None Seen) Urine Mucus Few (None Seen) Urine Glucose 4+ mg/dL (Normal) H Labs and/or images reviewed: Labs reviewed by me, Image(s) reviewed by me Assessment/Plan Assessment/Plan hpi: 64 y.o male presents to the ED for a chief complaint of nausea and vomiting that started 2 days ago. Patient states having a 3 vessel CABG on 02/13/25 at [facility] and at that time was experiencing chest pain. Patient states since being d/c from hospital, has no experienced chest pain. He denies any abdominal pain, fever, chills, diarrhea, runny nose, cough or sore throat. 03/01: Overnight patient with requiring Levophed but then has tachycardia to 170s, patient is changed from Levophed to Lavell-Synephrine. I feel patient may be in cardiogenic shock, Lavell-Synephrine can hurt that along with a beta-monserrat. We will try to switch back to Levophed, try to get cardiac output to assess for shock, we will get ABG, VBG from central line, CVP from central line. Central line inserted see procedure note. Otherwise continue other home medications. Echo stat, cardiology stat consult. - perf secretion patient not in cardiogenic shock. We will continue Levophed, likely septic shock from gastroenteritis continue broad-spectrum antibiotics. Continue to monitor blood cultures and vitals.. Appreciate cardiology following. Diagnosis: Septic shock, likely due to gastroenteritis DKA Current Pericardial effusion Gastroenteritis, infectious etiology likely Coronary artery disease, history three-vessel CABG 02/13/2025 Diabetes with complication of DKA current Plan: Cardiology consult IV fluids Ceftriaxone Flagyl Prn pain control Echo stat Tele Full code Plan discussed with: Patient, Other My Orders Orders - ANNE-MARIE KRISHNA MD Procedure Category Date Status Time Admit ADMIT 02/28/25 Transmitted 14:42 Code Status CODE 02/28/25 Transmitted 14:42 Acetaminophen Tablet PHA 02/28/25 In Process (Tylenol Tablet) 14:45 Hydrocodone-Acet PHA 02/28/25 In Process 5/325mg Tab (Dunbar 14:45 Clear Liq Diet DIET 02/28/25 Transmitted Dinner Morphine Sulfate PHA 02/28/25 In Process Injection 14:45 Nitroglycerin PHA 02/28/25 In Process Sublingual (Ntrostat 14:45 Morphine Sulfate PHA 02/28/25 In Process Injection 14:45 Stat Ekg For Chest MADELINE 02/28/25 In Process Pain 14:42 Notify Md Of Changes MADELINE 02/28/25 In Process From Base 14:42 Adjuster And Inspector For MADELINE 02/28/25 In Process 24 Hours 14:42 Emergency Dysrhythmia MADELINE 02/28/25 In Process Protocol 14:42 Rhythm Strips Once MADELINE 02/28/25 In Process Every Shift 14:42 Oxygen By Nasal RT 02/28/25 Transmitted Cannula 14:42 * Cardiology Consult CONS 02/28/25 Transmitted 14:46 Ceftriaxone 1gm/50ml PHA 02/28/25 In Process (Rocephin) 15:00 Metronidazole PHA 02/28/25 In Process 500mg/100ml (Flagyl 15:17 Pantoprazole PHA 02/28/25 In Process (Protonix) 15:00 Blood Culture RIKY 02/28/25 In Process 14:56 Metoprolol Tartrate PHA 02/28/25 In Process Tablet (Lopressor Ta 16:30 Midodrine Tablet PHA 02/28/25 In Process (Proamatine Tablet) 18:00 Hydrocortisone PHA 02/28/25 In Process Succinate Inj 17:35 Echo 2d Mode Cardiac US 03/01/25 Logged DOP 14:42 Mrsa Screen RIKY 03/01/25 Uncollected 08:49 Us Guided Vascular US 03/01/25 Logged Access 09:29 Obtain Consent For: ORDERS 03/01/25 Transmitted 09:29 Chest Portable XY 03/01/25 Resulted 10:20 Norepinephrine 8 PHA 03/01/25 In Process Mg/250ml Kit 10:30 Date of Service: Mar 01, 2025 Billing Provider: ANNE-MARIE KRISHNA MD Common Visit Codes: [id number] CARE 30-74 MIN ANNE-MARIE KRISHNA MD Mar 01, 2025 10:58
--- NOTE | 2025-03-01 10:59 | DVHNC2 ---
Central Line Notes ULTRASOUND-GUIDED RIGHT INTERNAL JUGULAR CENTRAL VENOUS CANNULATION CPT Codes: 32228 (ultrasound guidance) 24783 (insertion of non-tunneled centrally inserted central venous catheter) 98040 (CXR interpretation) DATE: 03/01/2025 PHYSICIAN: Anne-Marie Turcios MD PREOPERATIVE DIAGNOSIS: Rule out cardiogenic shock POSTOPERATIVE DIAGNOSIS: Rule out cardiogenic shock PROCEDURE PERFORMED: Limited Ultrasound-guided Right internal jugular central line placement. ANESTHESIA: 2 mL of 1% lidocaine plain. ESTIMATED BLOOD LOSS: less than 5 mL. SPECIMENS: None. COMPLICATIONS: None. INDICATIONS FOR PROCEDURE: The patient is in need of large bore IV access for administration of fluids, including blood products and vasoactive drugs, possible transvenous cardiac pacing and CVP monitoring for hemodynamic instability. DESCRIPTION OF PROCEDURE IN DETAIL: The patient was lying in the Trendelenburg position with head turned 30 degrees away from the insertion site. The skin was thoroughly sponged with chlorhexidine and allowed to dry. All persons involved were shielded with hair nets, face masks and sterile gowns. With sterile-gloved hands the right neck area was draped with the large disposable sterile field provided in the pre-manufactured kit. The skin and subcutaneous tissues superficial to the RIGHT internal jugular vein were anesthetized with 2 mL of 1% lidocaine. The RIGHT internal jugular vein was identified on ultrasound from the angle of the mandible down into the supraclavicular fossa using the linear ultrasound probe in the transverse orientation. The carotid artery was identified and avoi ded utilizing color-flow. The internal jugular vein was then placed in the center of the ultrasound field and compressed for patency. A movement artifact was identified as the needle was advanced through the skin and advanced toward the vessel. A real time hyperechoic signal revealed visualization of vascular needle entry into the lumen as blood was noted to flashback in the syringe. The needle was then held in place while the guide wire was advanced. The needle was then removed. Direct visualization of guide wire location within the vein was noted on ultrasound indicating proper placement and was document in the electronic medical record chart. A skin dilator was advanced over the guidewire and removed, and the triple-lumen catheter was then advanced over the guide wire into proper position. The guide wire was removed and discarded. The ports were aspirated which showed good blood return and then carefully flushed with normal saline. The catheter was stabilized and sutured to the skin with 2-0 silk at 4 anchor points. A sterile bio-patch and dressing was placed over the catheter, including the insertion site. The patient tolerated the procedure well. A chest x-ray was ordered for position confirmation. I reviewed the image immediately after it was taken at bedside. Post-procedure chest x-ray demonstrates the central line in the superior vena and no evidence of any pneumothorax. An image recording of the procedure accompanies the chart. Anne-Marie Turcios MD 03/01/2025 Date of Service: Mar 01, 2025 Billing Provider: ANNE-MARIE KRISHNA MD Common Visit Codes: PROCEDURE ONLY Procedure Codes: [id number] NON-TUNNEL CV CATH ANNE-MARIE KRISHNA MD Mar 01, 2025 10:59
[2025-03-01] MEDS: DEXTROSE (50%) 50ML SYRG IV ONE (11:42)
[2025-03-01] MEDS: InsuLIN REG 1unit/0.01ml Soln (100units/ml) IV ONE (11:42)
[2025-03-01] MEDS: SODIUM BICARB 8.4% 50Meq/50ml SYR INJ IV ONE (11:42)
[2025-03-01] MEDS ORDERED: DEXTROSE (50%) 50ML SYRG IV PRN ×2 (12:00→16:00)
--- NOTE | 2025-03-01 12:01 | DVHPN2 ---
Progress Note - Dictate Date Seen: Mar 01, 2025 Medical Necessity Reason Pt with a Central, PICC or Fol: No Subjective PT WITH vital signs Vital Sign Date Time Temp Pulse Resp B/P (MAP) Pulse Ox O2 Delivery O2 Flow Rate FiO2 03/01/25 11:13 103/46 03/01/25 11:00 114 18 99 03/01/25 10:10 Room Air* 0 21 03/01/25 08:00 98.7 98.7 Total Intake and Output 02/28/25 02/28/25 03/01/25 14:59 22:59 06:59 Intake Total 1000 ml 2150 ml 166.25 ml Output Total 1300 ml Balance 1000 ml 2150 ml -1133.75 ml medications Current Medications Medications Dose Ordered Sig/Danielle Route Start Time Stop Time Status Last Admin Dose Admin Acetaminophen 325 mg Q4HP PRN PO 02/28/25 14:45 Acetaminophen/ Hydrocodone Bitart 1 tab Q4HP PRN PO 02/28/25 14:45 Morphine Sulfate 2 mg Q4HPRN PRN IV 02/28/25 14:45 Nitroglycerin 0.4 mg Q5MINP PRN SL 02/28/25 14:45 Morphine Sulfate 2 mg Q30M PRN IV 02/28/25 14:45 Ceftriaxone Sodium 50 ml @ 100 mls/hr DAILY@09 IV 02/28/25 15:00 03/01/25 09:41 100 MLS/HR Metronidazole 100 ml @ 100 mls/hr Q8HR IV 02/28/25 15:17 03/01/25 06:11 100 MLS/HR Pantoprazole Sodium 40 mg DAILY IV 02/28/25 15:00 03/01/25 09:41 40 MG Metoprolol Tartrate 50 mg BID PO 02/28/25 16:30 Aspirin 81 mg DAILY PO 03/01/25 10:00 03/01/25 09:41 81 MG Midodrine 10 mg BIDD PO 02/28/25 18:00 03/01/25 06:31 10 MG Hydrocortisone Sodium Succinate 50 mg BIDD IV 02/28/25 17:35 03/01/25 06:30 50 MG Phenylephrine HCl 250 ml @ 30 mls/hr Q8H20M IV 03/01/25 02:15 03/01/25 11:13 67.5 MLS/HR Norepinephrine Bitartrate 250 ml @ 3.75 mls/hr Q24H IV 03/01/25 10:30 Enoxaparin Sodium 60 mg BID SC 03/01/25 22:00 laboratory and microbiology Laboratory Tests 03/01/25 02:15 Test 03/01/25 02:15 Range/Units Serum Glucose 235 H 74-106 mg/dL Problem List N/V ABD PAIN SINUS TACHYCARDIA SECONDARY TO VOLUME DEPLETION HYPERKALEMIA MOST LIKELY SECONDARY TO ACIDOSIS METABOLIC ACIDOSIS LEUKOPENIA CONSISTENT WITH SEPSIS PMH ORGANIC HD CAD S/P CABY X1 SMALL PERICARDIAL EFFUSION POST OP PERICARDIOTOMY SYNDROME S/P POST OP AFIB/ RESOLVED HYPERLIPIDEMIA DIABETES VASCULOPATHY NEPHROPATHY R/O TYPE IV RTA WITH HYPERKALEMIA Assessment/Plan METABOLIC SUPPORT IV FLUID CORRET ACIDOSIS CORRECT HYPERKALEMIA LOKELMA ABX Plan discussed with: Patient Critical Care Time(min): 35 MARTHA FRY MD Mar 01, 2025 12:01
[2025-03-01] MEDS: NOREPINEPHRINE 8 MG/250ML KIT 250 ML IV SCH (12:18)
[2025-03-01] MEDS: ACCU-CHEK COMFORT CURVE STRIP VI SCH ×2 (12:21→16:09)
[2025-03-01] MEDS: InsuLIN REG 1unit/0.01ml Soln (100units/ml) SC SCH (12:25)
--- NOTE | 2025-03-01 13:27 | DVHSR ---
APPROVED REPORT EXAM: Two-dimensional and M-mode echocardiogram with Doppler and color Doppler. Blood Pressure: 98/46 mmHg INDICATION Pericardial Effusion Surgery/Intervention CABG: RISK FACTORS Height: 5' 8", Weight: 138 DIMENSIONS LVDd 4.4 (3.8-5.7cm) LA (2D) 3.2 (1.9-4.0cm) Aortic Root 3.1 (2.0-3.7cm) LVDs 2.6 (2.5-4.0cm) LA (MM) (1.9-4.0cm) Aortic Cusp Exc 1.7 (1.5-2.0cm) EF (%) 70.0 (55-70%) Rt. Atrium 3.9 (1.9-4.0cm) Asc. Aorta cm IVSd 0.8 (0.7-1.1cm) RV (D) (1.8-2.4cm) PWd 0.9 (0.7-1.1cm) Mitral Valve Mitral Mitral Stenosis E wave 1.00m/s MV Mean GR. mmHg A wave 1.30m/s MV Peak GR. mmHg E/A ratio 0.8 2D MVA cm2 Aortic Valve Aortic Valve Aortic Stenosis V1 1.30m/s AO Mean GR. 5mmHg V2 1.60m/s AO Peak GR. 11mmHg LVOT Diameter 2.0 (1.8-2.4cm) Doppler FAIZAN 2.55cm2 Pulmonic Valve V2 1.00m/s Tricuspid Valve TR Velocity 3.50m/s RVSP 62mmHg Conclusion EF >55% MOD TO SEVERE TR SEVERE PAH
--- NOTE | 2025-03-01 14:06 | DVHPN2 ---
Progress Note Date Seen: Mar 01, 2025 Resident Creating Document: KARUNA VEGAS RESIDENT Medical Necessity Reason Pt with a Central, PICC or Fol: Yes The following are medically ne: Central Line Subjective Review of Systems Patient seen and examined, overnight started on phenylephrine, currently on Levophed. WBC downtrending, 2.4. ESR 36, CRP greater than 20. ABG showing anion gap metabolic acidosis. Hyperkalemia protocol initiated. Follow up repeat potassium levels. MOE worsening, discontinued Lasix. Objective vital signs Vital Sign Date Time Temp Pulse Resp B/P (MAP) Pulse Ox O2 Delivery O2 Flow Rate FiO2 03/01/25 12:38 113/52 03/01/25 12:30 104 20 100 03/01/25 12:00 98.0 98.0 03/01/25 11:30 Room Air* 0 21 Total Intake and Output 02/28/25 02/28/25 03/01/25 15:00 23:00 07:00 Intake Total 1000 ml 2150 ml 233.75 ml Output Total 1300 ml Balance 1000 ml 2150 ml -1066.25 ml medications Current Medications Medications Dose Ordered Sig/Danielle Route Start Time Stop Time Status Last Admin Dose Admin Acetaminophen 325 mg Q4HP PRN PO 02/28/25 14:45 Acetaminophen/ Hydrocodone Bitart 1 tab Q4HP PRN PO 02/28/25 14:45 Morphine Sulfate 2 mg Q4HPRN PRN IV 02/28/25 14:45 Nitroglycerin 0.4 mg Q5MINP PRN SL 02/28/25 14:45 Morphine Sulfate 2 mg Q30M PRN IV 02/28/25 14:45 Ceftriaxone Sodium 50 ml @ 100 mls/hr DAILY@09 IV 02/28/25 15:00 03/01/25 09:41 100 MLS/HR Metronidazole 100 ml @ 100 mls/hr Q8HR IV 02/28/25 15:17 03/01/25 06:11 100 MLS/HR Pantoprazole Sodium 40 mg DAILY IV 02/28/25 15:00 03/01/25 09:41 40 MG Metoprolol Tartrate 50 mg BID PO 02/28/25 16:30 Aspirin 81 mg DAILY PO 03/01/25 10:00 03/01/25 09:41 81 MG Midodrine 10 mg BIDD PO 02/28/25 18:00 03/01/25 06:31 10 MG Hydrocortisone Sodium Succinate 50 mg BIDD IV 02/28/25 17:35 03/01/25 06:30 50 MG Phenylephrine HCl 250 ml @ 30 mls/hr Q8H20M IV 03/01/25 02:15 03/01/25 11:13 67.5 MLS/HR Norepinephrine Bitartrate 250 ml @ 3.75 mls/hr Q24H IV 03/01/25 10:30 03/01/25 12:18 3.75 MLS/HR Enoxaparin Sodium 60 mg BID SC 03/01/25 22:00 Diagnostic Test (Pha) 1 strip IQ4HR 03/01/25 12:00 03/01/25 12:21 1 STRIP Insulin Human Regular IQ4HR SC 03/01/25 12:00 03/01/25 12:25 15 UNITS Dextrose 50 ml UD PRN IV 03/01/25 12:00 Examination Patient lying in bed, in no acute distress General: 10 appearing, afebrile, palor, mucosae are moist Cardiovascular: Apparent jugular venous distention, tachycardic but Regular S1 and S2. No murmurs, gallops or rubs. No pedal edema Respiratory: Decreased breath sounds bilaterally on auscultation, no wheezing or crackles Abdomen: Soft, nontender, nondistended, normoactive bowel sounds, no rebound tenderness, no organomegaly, no masses Genitourinary: Deferred MSK/skin: Mobilizes 4 limbs. Skin is dry and warm Psych/Mental Status: A/Ox3 laboratory and microbiology Laboratory Tests 03/01/25 02:15 Test 03/01/25 02:15 Range/Units Serum Glucose 235 H 74-106 mg/dL Labs and/or images reviewed: Labs reviewed by me, Image(s) reviewed by me Problem List/Assessment/Plan Problem List/Assessment/Plan Sinus tachycardia in the setting of sepsis/volume depletion Recent CABG on aspirin and Eliquis at home Septic shock likely source GI Anion gap metabolic acidosis secondary to above Diabetes mellitus type 2-A1c 7.5 Leukopenia-sepsis related Hyperkalemia Acute kidney injury superimposed on CKD Transaminitis Plan: Patient's tachycardia is likely in the setting of sepsis/volume depletion. Recommend gentle IV hydration, albumin challenge for hypotension along with IV antibiotics. No acute cardiology will intervention needed at this time. Pericardial effusion is trace, consistent with expected postop changes. Follow up with the echocardiogram. Continue aspirin and Lovenox 1 mg/kg b.i.d., transition to Lovenox on discharge. 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 Thank you for consulting Cardiology Plan discussed with patient, in which all questions have been answered Case discussed with Dr. Wilkerson Plan discussed with: Patient My Orders My Orders Orders - KARUNA VEGAS Procedure Category Date Status Time Sodium Bicarb PHA 03/01/25 In Process 50meq/50ml Syr 09:30 Potassium LAB 03/01/25 Verified 13:56 Magnesium LAB 03/01/25 Verified 13:56 Visit Coding Cardiology RES Date of Service: Mar 01, 2025 Billing Provider: MARTHA FRY MD Cardiology Common Codes: [id number] HOSP CARE(High KARUNA VEGAS RESIDENT Mar 01, 2025 14:06
[2025-03-01 15:17] LABS: Potassium 4.1 mmol/L (3.5-5.1)
[2025-03-01 15:23] LABS: Magnesium 2.2 mg/dL (1.6-2.6); Potassium 4.3 mmol/L (3.5-5.1); Sodium 140 mmol/L (136-145)
[2025-03-01 15:24] LABS: Anion Gap 18 (5-15)
[2025-03-01 15:30] LABS: BUN/Creatinine Ratio 20.5 (10.0-20.0)
[2025-03-01 15:41] LABS: Chloride 112 mmol/L (98-107)
[2025-03-01 15:42] LABS: Blood Urea Nitrogen 27 mg/dL (9-23); Calcium 8.1 mg/dL (8.7-10.4); Carbon Dioxide 10 mmol/L (20-31)
[2025-03-01 15:44] LABS: Glucose 432 mg/dL (74-106); Lactic Acid w/Reflex 3.7 mmol/L (0.4-2.0)
[2025-03-01] MEDS: LACTATED RINGER'S 500 ML IV ONE (16:05)
[2025-03-01] MEDS: SODIUM BICARB 50mEq/50ml Vial 50 ML in SOD CHL 0.45% 1,000 ML IV SCH (16:32)
[2025-03-01] MEDS: INSULIN DRIP 100 UNIT/100ML 100 ML IV SCH (16:42)
[2025-03-01] MEDS: SODIUM CHLORIDE 0.9% 1,000 ML IV SCH ×2 (20:23→22:00)
[2025-03-01] MEDS: ENOXAPARIN SOD 60 MG/0.6 ML SYRINGE SC SCH (23:01)
[2025-03-02] VITALS (29 sets, daily range): BP systolic 95–108; BP diastolic 34–58; PULSE 56–79; RESP 11–17; TEMP 97.9–98.1; O2SAT 97–100
[2025-03-02 07:15] LABS: Hematocrit 29.8 % (41.0-53.0); Hemoglobin 10.1 g/dL (13.5-17.5); Mean Corpuscular Hemoglobin 31.5 pg (28.0-32.0); Mean Corpuscular Volume 92.8 fL (80.0-100.0); Nucleated Red Blood Cells % 0.0 %
[2025-03-02 07:48] LABS: Alanine Aminotransferase 12 U/L (7-40); Albumin 3.0 g/dL (3.2-4.8); Alkaline Phosphatase 102 U/L (46-116); Anion Gap 7 (5-15); BUN/Creatinine Ratio 25.0 (10.0-20.0); Bilirubin, Total 0.2 mg/dL (0.2-1.0); Blood Urea Nitrogen 19 mg/dL (9-23); Calcium 7.6 mg/dL (8.7-10.4); Carbon Dioxide 19 mmol/L (20-31); Chloride 118 mmol/L (98-107); Glucose 124 mg/dL (74-106); Potassium 3.6 mmol/L (3.5-5.1); Sodium 144 mmol/L (136-145); Total Protein 5.2 g/dL (5.7-8.2)
--- NOTE | 2025-03-02 07:56 | ECG ---
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
--- NOTE | 2025-03-02 11:15 | ECG ---
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
--- NOTE | 2025-03-02 11:59 | DVHPN2 ---
Progress Note Date Seen: Mar 02, 2025 Resident Creating Document: KARUNA VEGAS RESIDENT Medical Necessity Reason Pt with a Central, PICC or Fol: Yes The following are medically ne: Central Line Subjective Review of Systems 03/01 - Patient seen and examined, overnight started on phenylephrine, currently on Levophed. WBC downtrending, 2.4. ESR 36, CRP greater than 20. ABG showing anion gap metabolic acidosis. Hyperkalemia protocol initiated. Follow up repeat potassium levels. MOE worsening, discontinued Lasix. 03/02-patient seen and examined, reports no acute symptoms. Currently on Levophed 4. EKG and telemetry shows intermittent sinus bradycardia, with PACs. Anion gap closed, DKA resolving. MOE resolving. Objective vital signs Vital Sign Date Time Temp Pulse Resp B/P (MAP) Pulse Ox O2 Delivery O2 Flow Rate FiO2 03/02/25 10:45 57 03/02/25 09:35 102/43 03/02/25 08:45 17 98 03/02/25 07:30 98.0 98.0 03/02/25 07:30 Room Air* 0 21 Total Intake and Output 03/01/25 03/01/25 03/02/25 15:00 23:00 07:00 Intake Total 640.00 ml 1426.5 ml 2087.70 ml Output Total 1050 ml 600 ml Balance 640.00 ml 376.5 ml 1487.70 ml medications Current Medications Medications Dose Ordered Sig/Danielle Route Start Time Stop Time Status Last Admin Dose Admin Acetaminophen 325 mg Q4HP PRN PO 02/28/25 14:45 Acetaminophen/ Hydrocodone Bitart 1 tab Q4HP PRN PO 02/28/25 14:45 Morphine Sulfate 2 mg Q4HPRN PRN IV 02/28/25 14:45 Nitroglycerin 0.4 mg Q5MINP PRN SL 02/28/25 14:45 Morphine Sulfate 2 mg Q30M PRN IV 02/28/25 14:45 Ceftriaxone Sodium 50 ml @ 100 mls/hr DAILY@09 IV 02/28/25 15:00 03/02/25 09:19 100 MLS/HR Metronidazole 100 ml @ 100 mls/hr Q8HR IV 02/28/25 15:17 03/02/25 05:30 100 MLS/HR Pantoprazole Sodium 40 mg DAILY IV 02/28/25 15:00 03/02/25 09:34 40 MG Metoprolol Tartrate 50 mg BID PO 02/28/25 16:30 Aspirin 81 mg DAILY PO 03/01/25 10:00 03/02/25 09:34 81 MG Midodrine 10 mg BIDD PO 02/28/25 18:00 03/02/25 06:00 10 MG Hydrocortisone Sodium Succinate 50 mg BIDD IV 02/28/25 17:35 03/02/25 06:01 50 MG Phenylephrine HCl 250 ml @ 30 mls/hr Q8H20M IV 03/01/25 02:15 03/01/25 11:13 67.5 MLS/HR Norepinephrine Bitartrate 250 ml @ 3.75 mls/hr Q24H IV 03/01/25 10:30 03/01/25 12:18 3.75 MLS/HR Enoxaparin Sodium 60 mg BID SC 03/01/25 22:00 03/02/25 09:35 60 MG Sodium Bicarbonate 50 ml/ Sodium Chloride 1,050 ml @ 50 mls/hr Q21H IV 03/01/25 15:45 03/01/25 16:32 50 MLS/HR Sodium Chloride 1,000 ml @ 150 mls/hr Q6H40M IV 03/01/25 22:00 03/02/25 02:45 150 MLS/HR Insulin Human (Reg)/Sodium Chloride 100 ml @ 0.5 mls/hr Q24H IV 03/01/25 16:00 03/01/25 16:42 0.5 MLS/HR Dextrose 50 ml UD PRN IV 03/01/25 16:00 Diagnostic Test (Pha) 1 strip Q90MIN 03/01/25 16:30 03/02/25 11:04 1 STRIP Examination Patient lying in bed, in no acute distress General: Thin appearing, afebrile, palor, mucosae are moist Cardiovascular: Apparent jugular venous distention, tachycardic but Regular S1 and S2. No murmurs, gallops or rubs. No pedal edema Respiratory: Decreased breath sounds bilaterally on auscultation, no wheezing or crackles Abdomen: Soft, nontender, nondistended, normoactive bowel sounds, no rebound tenderness, no organomegaly, no masses Genitourinary: Deferred MSK/skin: Mobilizes 4 limbs. Skin is dry and warm Psych/Mental Status: A/Ox3 laboratory and microbiology Laboratory Tests 03/02/25 06:30 Test 03/02/25 06:30 Range/Units Serum Glucose 124 #H 74-106 mg/dL Microbiology Date/Time Source Procedure Growth Status 02/28/25 15:36 Blood Blood Culture - Preliminary NO GROWTH AFTER 24 HOURS OF INCUBATION. Resulted Labs and/or images reviewed: Labs reviewed by me, Image(s) reviewed by me Problem List/Assessment/Plan Problem List/Assessment/Plan Sinus tachycardia in the setting of sepsis/volume depletion/DKA Moderate to severe TR Likely Severe pulmonary hypertension on echo Recent CABG on aspirin and Eliquis at home Septic shock likely source GI Anion gap metabolic acidosis secondary to DKA Likely diabetic ketoacidosis Diabetes mellitus type 2-A1c 7.5 Leukopenia-sepsis related Hyperkalemia Acute kidney injury superimposed on CKD Transaminitis Repeat EKG shows sinus bradycardia with PACs Plan: DKA is resolving, tachycardia resolving. Continue gentle IV hydration, albumin challenge for hypotension along with IV antibiotics. No acute cardiology will intervention needed at this time. Cardiology will sign off. Pericardial effusion is trace, consistent with expected postop changes. Echo shows EF >55%, moderate to severe TR, severe PH Continue aspirin and Lovenox 1 mg/kg b.i.d., transition to Lovenox on discharge. 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 Thank you for consulting Cardiology Plan discussed with patient, in which all questions have been answered Case discussed with Dr. Wilkerson Plan discussed with: Patient, Other (Sister at bedside) Visit Coding Cardiology RES Date of Service: Mar 02, 2025 Billing Provider: MARTHA FRY MD Cardiology Common Codes: [id number] HOSP CARE(KARUNA Matthews RESIDENT Mar 02, 2025 11:59
[2025-03-02 12:35] LABS: Potassium 3.6 mmol/L (3.5-5.1); Sodium 142 mmol/L (136-145)
[2025-03-02 12:36] LABS: Anion Gap 14 (5-15)
[2025-03-02 12:41] LABS: BUN/Creatinine Ratio 19.7 (10.0-20.0); Blood Urea Nitrogen 14 mg/dL (9-23)
[2025-03-02 12:42] LABS: Calcium 7.9 mg/dL (8.7-10.4); Carbon Dioxide 17 mmol/L (20-31); Chloride 111 mmol/L (98-107); Glucose 155 mg/dL (74-106)
--- NOTE | 2025-03-02 13:26 | DVHPN2 ---
Progress Note - Dictate Date Seen: Mar 02, 2025 Medical Necessity Reason Pt with a Central, PICC or Fol: Yes The following are medically ne: Central Line Subjective PT WITH ORG HEART DZ S/P CABG NOW WITH SEPSIS MYELOSUPPRESSION FINALLY ABLE TO MOUNT A WBC RESPONSE vital signs Vital Sign Date Time Temp Pulse Resp B/P (MAP) Pulse Ox O2 Delivery O2 Flow Rate FiO2 03/02/25 12:15 53 14 98/45 (62) 99 03/02/25 07:30 98.0 98.0 03/02/25 07:30 Room Air* 0 21 Total Intake and Output 03/01/25 03/01/25 03/02/25 15:00 23:00 07:00 Intake Total 640.00 ml 1426.5 ml 2087.70 ml Output Total 1050 ml 600 ml Balance 640.00 ml 376.5 ml 1487.70 ml medications Current Medications Medications Dose Ordered Sig/Danielle Route Start Time Stop Time Status Last Admin Dose Admin Acetaminophen 325 mg Q4HP PRN PO 02/28/25 14:45 Acetaminophen/ Hydrocodone Bitart 1 tab Q4HP PRN PO 02/28/25 14:45 Morphine Sulfate 2 mg Q4HPRN PRN IV 02/28/25 14:45 Nitroglycerin 0.4 mg Q5MINP PRN SL 02/28/25 14:45 Morphine Sulfate 2 mg Q30M PRN IV 02/28/25 14:45 Ceftriaxone Sodium 50 ml @ 100 mls/hr DAILY@09 IV 02/28/25 15:00 03/02/25 09:19 100 MLS/HR Metronidazole 100 ml @ 100 mls/hr Q8HR IV 02/28/25 15:17 03/02/25 05:30 100 MLS/HR Pantoprazole Sodium 40 mg DAILY IV 02/28/25 15:00 03/02/25 09:34 40 MG Metoprolol Tartrate 50 mg BID PO 02/28/25 16:30 Aspirin 81 mg DAILY PO 03/01/25 10:00 03/02/25 09:34 81 MG Midodrine 10 mg BIDD PO 02/28/25 18:00 03/02/25 06:00 10 MG Hydrocortisone Sodium Succinate 50 mg BIDD IV 02/28/25 17:35 03/02/25 06:01 50 MG Phenylephrine HCl 250 ml @ 30 mls/hr Q8H20M IV 03/01/25 02:15 03/01/25 11:13 67.5 MLS/HR Norepinephrine Bitartrate 250 ml @ 3.75 mls/hr Q24H IV 03/01/25 10:30 03/01/25 12:18 3.75 MLS/HR Enoxaparin Sodium 60 mg BID SC 03/01/25 22:00 03/02/25 09:35 60 MG Sodium Bicarbonate 50 ml/ Sodium Chloride 1,050 ml @ 50 mls/hr Q21H IV 03/01/25 15:45 03/02/25 12:54 50 MLS/HR Sodium Chloride 1,000 ml @ 150 mls/hr Q6H40M IV 03/01/25 22:00 03/02/25 11:20 150 MLS/HR Insulin Human (Reg)/Sodium Chloride 100 ml @ 0.5 mls/hr Q24H IV 03/01/25 16:00 03/01/25 16:42 0.5 MLS/HR Dextrose 50 ml UD PRN IV 03/01/25 16:00 Diagnostic Test (Pha) 1 strip Q90MIN 03/01/25 16:30 03/02/25 12:13 1 STRIP laboratory and microbiology Laboratory Tests 03/02/25 12:10 03/02/25 06:30 Test 03/02/25 12:10 Range/Units Serum Glucose 155 H 74-106 mg/dL Problem List N/V ABD PAIN SINUS TACHYCARDIA SECONDARY TO VOLUME DEPLETION HYPERKALEMIA MOST LIKELY SECONDARY TO ACIDOSIS METABOLIC ACIDOSIS LEUKOPENIA CONSISTENT WITH SEPSIS PMH ORGANIC HD CAD S/P CABY X1 SMALL PERICARDIAL EFFUSION POST OP PERICARDIOTOMY SYNDROME S/P POST OP AFIB/ RESOLVED HYPERLIPIDEMIA DIABETES VASCULOPATHY NEPHROPATHY R/O TYPE IV RTA WITH HYPERKALEMIA Assessment/Plan METABOLIC SUPPORT IV FLUID CORRET ACIDOSIS CORRECT HYPERKALEMIA LOKELMA ABX CONT SUPPORTIVE CARE Plan discussed with: Other Critical Care Time(min): 35 MARTHA FRY MD Mar 02, 2025 13:26
[2025-03-02] MEDS ORDERED: DEXTROSE (50%) 50ML SYRG IV PRN (13:30)
--- NOTE | 2025-03-02 13:33 | DVHPN2 ---
Reviewed: H&P Changes from previous H/P or p: No Changes General: Per HPI Cardiovascular: No Chest Pain, No Palpitations, No Orthopnea, No Paroxysmal Noc. Dyspnea, No Edema, No Lt Headedness, No Other Respiratory: No Cough, No Dry, No Shortness of breath, No SOB with excertion, No Wheezing, No Hemoptysis, No Pleuritic Pain, No Sputum, No Other Gastrointestinal: Nausea, Vomiting Objective Vitals Vital Signs Date Time Temp Pulse Resp B/P (MAP) Pulse Ox O2 Delivery O2 Flow Rate FiO2 03/02/25 12:15 53 14 98/45 (62) 99 03/02/25 07:30 98.0 98.0 03/02/25 07:30 Room Air* 0 21 Intake/Output Intake and Output 03/02/25 07:00 Intake Total 4154.20 ml Output Total 1650 ml Balance 2504.20 ml Intake Oral 1100 ml IV Total 3054.20 ml Output Urine Total 1650 ml Exam GEN: Healthy appearing, well-developed, NAD. HEENT: NC/AT; MMM. Right IJ CvC CV: RRR, no m/r/g. LUNGS: CTAB, no w/r/c. ABD: Soft, NT/ND, NBS, no masses or organomegaly. EXT: skin Warm, well perfused. no rashes. No clubbing, cyanosis, or edema. NEURO: Ambulating with no limitations. No focal deficits. Medications Current Medications Medications Dose Ordered Sig/Danielle Route Start Time Stop Time Status Last Admin Dose Admin Acetaminophen 325 mg Q4HP PRN PO 02/28/25 14:45 Acetaminophen/ Hydrocodone Bitart 1 tab Q4HP PRN PO 02/28/25 14:45 Morphine Sulfate 2 mg Q4HPRN PRN IV 02/28/25 14:45 Nitroglycerin 0.4 mg Q5MINP PRN SL 02/28/25 14:45 Morphine Sulfate 2 mg Q30M PRN IV 02/28/25 14:45 Ceftriaxone Sodium 50 ml @ 100 mls/hr DAILY@09 IV 02/28/25 15:00 03/02/25 09:19 100 MLS/HR Metronidazole 100 ml @ 100 mls/hr Q8HR IV 02/28/25 15:17 03/02/25 05:30 100 MLS/HR Pantoprazole Sodium 40 mg DAILY IV 02/28/25 15:00 03/02/25 09:34 40 MG Metoprolol Tartrate 50 mg BID PO 02/28/25 16:30 Aspirin 81 mg DAILY PO 03/01/25 10:00 03/02/25 09:34 81 MG Midodrine 10 mg BIDD PO 02/28/25 18:00 03/02/25 06:00 10 MG Hydrocortisone Sodium Succinate 50 mg BIDD IV 02/28/25 17:35 03/02/25 06:01 50 MG Phenylephrine HCl 250 ml @ 30 mls/hr Q8H20M IV 03/01/25 02:15 03/01/25 11:13 67.5 MLS/HR Norepinephrine Bitartrate 250 ml @ 3.75 mls/hr Q24H IV 03/01/25 10:30 03/01/25 12:18 3.75 MLS/HR Enoxaparin Sodium 60 mg BID SC 03/01/25 22:00 03/02/25 09:35 60 MG Sodium Bicarbonate 50 ml/ Sodium Chloride 1,050 ml @ 50 mls/hr Q21H IV 03/01/25 15:45 03/02/25 12:54 50 MLS/HR Sodium Chloride 1,000 ml @ 150 mls/hr Q6H40M IV 03/01/25 22:00 03/02/25 11:20 150 MLS/HR Insulin Human (Reg)/Sodium Chloride 100 ml @ 0.5 mls/hr Q24H IV 03/01/25 16:00 03/01/25 16:42 0.5 MLS/HR Dextrose 50 ml UD PRN IV 03/01/25 16:00 Diagnostic Test (Pha) 1 strip Q90MIN 03/01/25 16:30 03/02/25 12:13 1 STRIP Laboratory Results Laboratory Tests 03/02/25 06:30 03/02/25 12:10 Chemistry Test 03/01/25 14:52 03/02/25 06:30 03/02/25 12:10 Calcium Level 8.1 mg/dL (8.7-10.4) L 7.6 mg/dL (8.7-10.4) L 7.9 mg/dL (8.7-10.4) L Magnesium Level 2.2 mg/dL (1.6-2.6) Albumin 3.0 g/dL (3.2-4.8) L Total Protein 5.2 g/dL (5.7-8.2) L LFT Test 03/02/25 06:30 Alanine Aminotransferase (ALT) 12 U/L (7-40) Alkaline Phosphatase 102 U/L (46-116) Aspartate Amino Transferase (AST) 14 U/L (13-40) Total Bilirubin 0.2 mg/dL (0.2-1.0) Urinalysis Test 02/28/25 17:04 Urine Color Light-yellow (Yellow) Urine Clarity Clear (Clear) Urine pH 5.0 (5.0-9.0) Urine Specific [place] 1.020 (1.001-1.035) Urine Protein Trace (Negative) H Urine Ketones 3+ (Negative) H Urine Blood Negative /uL (Negative) Urine Nitrite Negative (Negative) Urine Bilirubin Negative (Negative) Urine Urobilinogen Normal mg/dL (Negative) Urine Leukocyte Esterase Negative /uL (Negative) Urine RBC 1 /hpf (0 - 3) Urine Microscopic WBC 2 /HPF (0-3) Urine Squamous Epithelial Cells Few /hpf (<5) Urine Bacteria None seen /hpf (None Seen) Urine Mucus Few (None Seen) Urine Glucose 4+ mg/dL (Normal) H Microbiology Microbiology Date/Time Source Procedure Growth Status 02/28/25 15:36 Blood Blood Culture - Preliminary NO GROWTH AFTER 24 HOURS OF INCUBATION. Resulted Labs and/or images reviewed: Labs reviewed by me, Image(s) reviewed by me Assessment/Plan Assessment/Plan hpi: 64 y.o male presents to the ED for a chief complaint of nausea and vomiting that started 2 days ago. Patient states having a 3 vessel CABG on 02/13/25 at [facility] and at that time was experiencing chest pain. Patient states since being d/c from hospital, has no experienced chest pain. He denies any abdominal pain, fever, chills, diarrhea, runny nose, cough or sore throat. 03/01: Overnight patient with requiring Levophed but then has tachycardia to 170s, patient is changed from Levophed to Lavell-Synephrine. I feel patient may be in cardiogenic shock, Lavell-Synephrine can hurt that along with a beta-monserrat. We will try to switch back to Levophed, try to get cardiac output to assess for shock, we will get ABG, VBG from central line, CVP from central line. Central line inserted see procedure note. Otherwise continue other home medications. Echo stat, cardiology stat consult. - perf secretion patient not in cardiogenic shock. We will continue Levophed, likely septic shock from gastroenteritis continue broad-spectrum antibiotics. Continue to monitor blood cultures and vitals.. Appreciate cardiology following. 03/02: Patient is still on Levophed at 6, DKA resolving gap closed we will transition right now, transition with 10 units Lantus, starting 8 units HS, continue q.4 moderate SSI sliding scale diet diabetic cardiac solids, still in septic shock we will escalate antibiotics to Zosyn and doxycycline and increase hydrocortisone 200 b.i.d., continue midodrine 10 b.i.d., hope to wean off Levophed. Per fix patient not in cardiogenic shock. Appreciate cardiology recommendations, patient has recent CABG approximately 2-3 weeks ago, high-risk. Continue present management in ICU. Blood cultures negative. We will repeat ABG VBG to get SaO2 to recalculate cardiac index. Patient is now bradycardic, we will hold off any metoprolol. Diagnosis: Septic shock, likely due to gastroenteritis DKA Current Pericardial effusion Gastroenteritis, infectious etiology likely Coronary artery disease, history three-vessel CABG 02/13/2025 Diabetes with complication of DKA current Plan: Cardiology consult IV fluids Ceftriaxone Flagyl Prn pain control Echo stat Tele Full code Plan discussed with: Patient, Other My Orders Orders - ANNE-MARIE KRISHNA MD Procedure Category Date Status Time Mrsa Screen RIKY 03/01/25 In Process 08:49 Sod Chl 0.45% PHA 03/01/25 In Process (Sodi... W/Sodium 15:45 Insulin Drip Protocol MADELINE 03/01/25 In Process Sodium Chloride 0.9% PHA 03/01/25 In Process 22:00 Insulin Drip 100 PHA 03/01/25 In Process Unit/100ml (Myxredlin 16:00 Dextrose 50% Syringe PHA 03/01/25 In Process 16:00 Glucose Blood PHA 03/01/25 In Process (Accu-Chek Comfort 16:30 Neurological MADELINE 03/01/25 In Process Assessment 15:46 Vs/Hemodynamics MADELINE 03/01/25 In Process 15:46 * Wound Consult CONS 03/01/25 Transmitted Date of Service: Mar 02, 2025 Billing Provider: ANNE-MARIE KRISHNA MD Common Visit Codes: [id number] CARE 30-74 MIN ANNE-MARIE KRISHAN MD Mar 02, 2025 13:33
[2025-03-02 14:11] LABS: Base Excess -7.6 mmol/L (-2.0-3.0)
[2025-03-02] MEDS: DOXYCYCLINE 100MG/100ML 100 ML IV SCH (14:54)
[2025-03-02] MEDS: INSULIN LANTUS (GLARGINE) 1 /0.01ml (100units/ml) SC ONE (15:06)
[2025-03-02] MEDS: ACCU-CHEK COMFORT CURVE STRIP VI SCH (16:13)
[2025-03-02] MEDS: InsuLIN REG 1unit/0.01ml Soln (100units/ml) SC SCH (16:17)
[2025-03-02] MEDS: PIPERACILLIN-TAZOB 3.375GM 100 ML IV SCH (18:18)
[2025-03-02] MEDS: HYDROCORTISONE SOD SUCC 100 MG/2ML INJ VIAL IV SCH (18:33)
[2025-03-02] MEDS: INSULIN LANTUS (GLARGINE) 1 /0.01ml (100units/ml) SC SCH (22:26)
[2025-03-03] VITALS (94 sets, daily range): BP systolic 74–128; BP diastolic 34–61; PULSE 45–128; RESP 10–25; TEMP 97.7–98.5; O2SAT 96–100
--- NOTE | 2025-03-03 10:42 | DVHPNRES ---
Progress Note Date Seen: Mar 03, 2025 Resident Creating Document: LYNETTE RUIZ RESIDENT Medical Necessity Reason Pt with a Central, PICC or Fol: Yes The following are medically ne: Central Line Subjective Review of Systems [place] is a 64-year-old male with PMHx significant for diabetes who came to the hospital with chief complaints of nausea, vomiting,for 2 days fever at home with T-max of 100.1 pulse sister before admission. He is status post CABG surgery performed on 02/13 in [place]. Also he had postop Afib . He reports poor oral intake and generalized weakness. He denies chest pain, shortness of breath, palpitations, syncope, abdominal pain, or diarrhea On arrival, he was noted to be tachycardic, with heart rate fluctuating from 80 to 140 bpm, but he remained in sinus tachycardia on telemetry and EKG. No episodes of atrial fibrillation were documented Past surgical history: CABG, cataract surgery family history: sister, father had heart disease. Social history: Patient denies smoking, drinking, drug use lives with: sister at home. 03/03/2025: Patient seen in the ICU. Patient today and yesterday had bradycardia. Is on Levo 1, today he does not complain of any nausea, vomiting, diarrhea. Patient had a bowel movement yesterday. Patient had a bowel movment today, is eating. He ia able to walk. Objective vital signs Vital Sign Date Time Temp Pulse Resp B/P (MAP) Pulse Ox O2 Delivery O2 Flow Rate FiO2 03/03/25 09:57 75 101/52 03/03/25 08:15 11 98 03/03/25 08:00 Room Air* 0 21 03/03/25 08:00 98.5 98.5 Total Intake and Output 03/02/25 03/02/25 03/03/25 15:00 23:00 07:00 Intake Total 1640.00 ml 342.50 ml 463.75 ml Output Total 825 ml 300 ml 475 ml Balance 815.00 ml 42.50 ml -11.25 ml medications Current Medications Medications Dose Ordered Sig/Danielle Route Start Time Stop Time Status Last Admin Dose Admin Acetaminophen 325 mg Q4HP PRN PO 02/28/25 14:45 Acetaminophen/ Hydrocodone Bitart 1 tab Q4HP PRN PO 02/28/25 14:45 Morphine Sulfate 2 mg Q4HPRN PRN IV 02/28/25 14:45 Nitroglycerin 0.4 mg Q5MINP PRN SL 02/28/25 14:45 Morphine Sulfate 2 mg Q30M PRN IV 02/28/25 14:45 Ceftriaxone Sodium 50 ml @ 100 mls/hr DAILY@09 IV 02/28/25 15:00 03/03/25 08:41 100 MLS/HR Metronidazole 100 ml @ 100 mls/hr Q8HR IV 02/28/25 15:17 03/03/25 05:13 100 MLS/HR Pantoprazole Sodium 40 mg DAILY IV 02/28/25 15:00 03/03/25 09:56 40 MG Metoprolol Tartrate 50 mg BID PO 02/28/25 16:30 Aspirin 81 mg DAILY PO 03/01/25 10:00 03/03/25 09:56 81 MG Midodrine 10 mg BIDD PO 02/28/25 18:00 03/03/25 05:14 10 MG Phenylephrine HCl 250 ml @ 30 mls/hr Q8H20M IV 03/01/25 02:15 03/01/25 11:13 67.5 MLS/HR Norepinephrine Bitartrate 250 ml @ 3.75 mls/hr Q24H IV 03/01/25 10:30 03/02/25 14:05 11.25 MLS/HR Enoxaparin Sodium 60 mg BID SC 03/01/25 22:00 03/03/25 09:56 60 MG Hydrocortisone Sodium Succinate 100 mg BIDD IV 03/02/25 18:00 03/03/25 05:13 100 MG Piperacillin Sod/ Tazobactam Sod 100 ml @ 25 mls/hr Q6HR IV 03/02/25 18:00 03/03/25 05:13 25 MLS/HR Doxycycline Hyclate 100 ml @ 50 mls/hr Q12H IV 03/02/25 13:30 03/03/25 01:42 50 MLS/HR Insulin Glargine 8 units HS SC 03/02/25 22:00 03/02/25 22:26 8 UNITS Diagnostic Test (Pha) 1 strip IQ4HR 03/02/25 16:00 03/03/25 08:09 1 STRIP Insulin Human Regular IQ4HR SC 03/02/25 16:00 03/03/25 04:30 2 UNITS Dextrose 50 ml UD PRN IV 03/02/25 13:30 Examination Patient lying in bed, in no acute distress General: Patient alert and oriented in person, place and time. Patient following commands. HEENT: Normocephalic, atraumatic, moist mucous membranes Respiratory/pulmonary: Clear lungs bilaterally, vesicular murmurs present in almost all lung arnold, no associated crackles or wheezes. Cardiovascular: Normal heart sounds S1 and S2 with no associated murmurs, sternotomy scar present with sutures Abdomen: Abdomen nondistended, there is no pain to palpation in any of the abdominal quadrants, no palpable masses. Extremities: There is no peripheral edema present at the lower extremities. Peripheral Pulses: 3+ Radial (R). 3+ Radial (L). 3+ Dorsalis pedis (R). 3+ Dorsalis pedis(L) Skin: skin tear on sacrum Neurological: Intact cranial nerves with no focal neurologic deficits laboratory and microbiology Test 03/03/25 10:29 Range/Units Serum Glucose Pending Microbiology Date/Time Source Procedure Growth Status 03/01/25 17:16 Nose MRSA Screen - Final Complete 02/28/25 15:36 Blood Blood Culture - Preliminary NO GROWTH AFTER 48 HOURS OF INCUBATION. Resulted Problem List/Assessment/Plan Problem List/Assessment/Plan Neurology -alert, oriented x4 Cardiology Pericardial effusion Sinus tachycardia in the setting of sepsis/volume depletion/DKA Moderate to severe TR S/P CABG on aspirin and Eliquis at home Bradycardia - Echo shows EF >55%, moderate to severe TR, severe PH - continue aspirin, Lovenox - metoprolol held due to bradycardia - Respiratory Severe pulmonary hypertension GI Septic shock likely due to gastroenteritis Transaminitis - IV Zosyn - Protonix IV daily - CT scan showed Presumed postsurgical retrosternal fluid collection/ hematoma. Trace pericardial effusion. Cdvi-[id number]-mthursav stool burden. No CT evidence of bowel obstruction. Endocrine Anion gap metabolic acidosis likely secondary to DKA Diabetic ketoacidosis Diabetes mellitus type 2 HbA1c 7.5 Leukopenia-sepsis related - anion gap closed - lactic acid resolved - IV fluids - moderate insulin sliding scale Renal/electrolytes Acute kidney injury superimposed on CKD Hyperkalemia - resolved - hyperkalemia protocol Skin Skin tear on Sacrum - Barrier cream - wound consult Prophylaxis / Supportive Care DVT Prophylaxis: Eliquis GI Prophylaxis: Protonix. Goals of care discussed with the patient for more than 39 minutes: Full code state Critical time spent 83 mins. Plan discussed with Dr. Law and RN Plan discussed with: Patient, Other (RN) My Orders My Orders Orders - LYNETTE RUIZ Procedure Category Date Status Time Complete Blood Count LAB 03/03/25 In Process 09:59 Comprehensive LAB 03/03/25 In Process Metabolic Panel 09:59 Date of Service: Mar 03, 2025 Billing Provider: LAURIE PERAZA MD Common Visit Codes: [id number] CARE 30-74 MIN, [id number] CARE-EACH +30MIN LYNETTE RUIZ Mar 03, 2025 10:42 LAURIE PERAZA MD Mar 04, 2025 14:10
[2025-03-03 11:01] LABS: Hematocrit 28.8 % (41.0-53.0); Hemoglobin 9.9 g/dL (13.5-17.5); Mean Corpuscular Hemoglobin 31.4 pg (28.0-32.0); Mean Corpuscular Volume 91.9 fL (80.0-100.0); Nucleated Red Blood Cells % 0.2 %
[2025-03-03 11:24] LABS: Alanine Aminotransferase 11 U/L (7-40); Alkaline Phosphatase 104 U/L (46-116); Anion Gap 11 (5-15); Carbon Dioxide 23 mmol/L (20-31); Chloride 107 mmol/L (98-107); Sodium 141 mmol/L (136-145)
[2025-03-03 11:25] LABS: BUN/Creatinine Ratio 18.0 (10.0-20.0); Blood Urea Nitrogen 11 mg/dL (9-23)
[2025-03-03 11:27] LABS: Albumin 2.8 g/dL (3.2-4.8); Bilirubin, Total 0.3 mg/dL (0.2-1.0); Calcium 7.7 mg/dL (8.7-10.4); Glucose 172 mg/dL (74-106); Potassium 3.0 mmol/L (3.5-5.1); Total Protein 5.0 g/dL (5.7-8.2)
--- NOTE | 2025-03-03 12:34 | MEDREC ---
[facility] ASP Intervention Section I [facility] ASP Intervention: Duplication of therapy (PLEASE CONSIDER D/C CEFTRIAXONE AND METRONIDAZOLE OR PIPERACILLIN-TAZOBACTAM DUPLICATION OF THERAPY ) TERRENCE VILLANUEVA PHARMACIST Mar 03, 2025 12:34
[2025-03-03] MEDS: NOREPINEPHRINE 8 MG/250ML KIT 250 ML IV SCH (13:45)
[2025-03-03] MEDS ORDERED: DEXTROSE (50%) 50ML SYRG IV PRN (13:45)
[2025-03-03] MEDS: POTASSIUM EFFERVESENT TAB 25 MEQ PO ONE ×2 (13:52→23:21)
--- NOTE | 2025-03-03 15:36 | DVHPN2 ---
Progress Note - Dictate Date Seen: Mar 03, 2025 Medical Necessity Reason Pt with a Central, PICC or Fol: Yes The following are medically ne: Central Line Subjective PT WITH ORG HEART DZ S/P CABG NOW WITH SEPSIS MYELOSUPPRESSION FINALLY ABLE TO MOUNT A WBC RESPONSE vital signs Vital Sign Date Time Temp Pulse Resp B/P (MAP) Pulse Ox O2 Delivery O2 Flow Rate FiO2 03/03/25 15:15 91/48 03/03/25 14:00 71 15 99 03/03/25 14:00 Room Air* 0 21 03/03/25 12:00 97.7 97.7 Total Intake and Output 03/02/25 03/02/25 03/03/25 15:00 23:00 07:00 Intake Total 1640.00 ml 342.50 ml 463.75 ml Output Total 825 ml 300 ml 475 ml Balance 815.00 ml 42.50 ml -11.25 ml medications Current Medications Medications Dose Ordered Sig/Danielle Route Start Time Stop Time Status Last Admin Dose Admin Pantoprazole Sodium 40 mg DAILY IV 02/28/25 15:00 03/03/25 09:56 40 MG Aspirin 81 mg DAILY PO 03/01/25 10:00 03/03/25 09:56 81 MG Enoxaparin Sodium 60 mg BID SC 03/01/25 22:00 03/03/25 09:56 60 MG Piperacillin Sod/ Tazobactam Sod 100 ml @ 25 mls/hr Q6HR IV 03/02/25 18:00 03/03/25 12:02 25 MLS/HR Insulin Glargine 8 units HS SC 03/02/25 22:00 03/02/25 22:26 8 UNITS Diagnostic Test (Pha) 1 strip ACHS 03/03/25 17:00 Insulin Human Regular HS SC 03/03/25 22:00 Insulin Human Regular AC SC 03/03/25 17:00 Dextrose 50 ml UD PRN IV 03/03/25 13:45 Norepinephrine Bitartrate 250 ml @ 1.875 mls/ hr Q24H IV 03/03/25 13:45 03/03/25 13:45 1.875 MLS/HR laboratory and microbiology Laboratory Tests 03/03/25 10:29 Test 03/03/25 10:29 Range/Units Serum Glucose 172 H 74-106 mg/dL Problem List N/V ABD PAIN SINUS TACHYCARDIA SECONDARY TO VOLUME DEPLETION HYPERKALEMIA MOST LIKELY SECONDARY TO ACIDOSIS METABOLIC ACIDOSIS LEUKOPENIA CONSISTENT WITH SEPSIS PMH ORGANIC HD CAD S/P CABY X1 SMALL PERICARDIAL EFFUSION POST OP PERICARDIOTOMY SYNDROME S/P POST OP AFIB/ RESOLVED HYPERLIPIDEMIA DIABETES VASCULOPATHY NEPHROPATHY R/O TYPE IV RTA WITH HYPERKALEMIA Assessment/Plan METABOLIC SUPPORT IV FLUID CORRET ACIDOSIS CORRECT HYPERKALEMIA LOKELMA ABX CONT SUPPORTIVE CARE Dietary Evaluation Review Comments: Encourage and monitor PO intakes CCHO-60 Cardiac diet Offer Glucerna 240ml PO supplement BID for additional protein and energy Expected Outcomes/Goals: gradual wt gain Plan discussed with: Other Critical Care Time(min): 35 MARTHA FRY MD Mar 03, 2025 15:35
[2025-03-03] MEDS: ACCU-CHEK COMFORT CURVE STRIP VI SCH (17:15)
[2025-03-03] MEDS: InsuLIN REG 1unit/0.01ml Soln (100units/ml) SC SCH ×2 (17:15→22:52)
[2025-03-03 17:43] LABS: Alanine Aminotransferase 15 U/L (7-40); Alkaline Phosphatase 105 U/L (46-116); Anion Gap 11 (5-15); BUN/Creatinine Ratio 22.1 (10.0-20.0); Blood Urea Nitrogen 15 mg/dL (9-23); Carbon Dioxide 25 mmol/L (20-31); Chloride 105 mmol/L (98-107); Potassium 3.5 mmol/L (3.5-5.1); Sodium 141 mmol/L (136-145)
[2025-03-03 17:44] LABS: Bilirubin, Total 0.3 mg/dL (0.2-1.0); Hematocrit 29.3 % (41.0-53.0); Hemoglobin 9.9 g/dL (13.5-17.5); Mean Corpuscular Hemoglobin 31.0 pg (28.0-32.0); Mean Corpuscular Volume 91.3 fL (80.0-100.0); Nucleated Red Blood Cells % 0.2 %
[2025-03-03 18:03] LABS: Albumin 2.7 g/dL (3.2-4.8); Calcium 7.7 mg/dL (8.7-10.4); Glucose 173 mg/dL (74-106); Total Protein 4.7 g/dL (5.7-8.2)
[2025-03-03] MEDS: APIXABAN 5 MG TAB PO SCH (22:50)
[2025-03-03] MEDS: MAGNESIUM SULFATE 1GM/100ML 100 ML IV ONE (23:21)
[2025-03-04] VITALS (92 sets, daily range): BP systolic 84–126; BP diastolic 41–71; PULSE 13–126; RESP 9–21; TEMP 97.8–98.4; O2SAT 96–100
[2025-03-04 04:35] LABS: Hematocrit 30.4 % (41.0-53.0); Hemoglobin 10.5 g/dL (13.5-17.5); Mean Corpuscular Hemoglobin 31.2 pg (28.0-32.0); Mean Corpuscular Volume 90.0 fL (80.0-100.0); Nucleated Red Blood Cells % 0.2 %
[2025-03-04 04:53] LABS: Anion Gap 11 (5-15); BUN/Creatinine Ratio 21.5 (10.0-20.0); Bilirubin, Total 0.4 mg/dL (0.2-1.0); Blood Urea Nitrogen 14 mg/dL (9-23); Carbon Dioxide 29 mmol/L (20-31); Chloride 104 mmol/L (98-107); Sodium 144 mmol/L (136-145)
[2025-03-04 04:55] LABS: Alanine Aminotransferase 41 U/L (7-40); Albumin 2.7 g/dL (3.2-4.8); Alkaline Phosphatase 120 U/L (46-116); Calcium 7.7 mg/dL (8.7-10.4); Glucose 151 mg/dL (74-106); Potassium 3.2 mmol/L (3.5-5.1); Total Protein 4.8 g/dL (5.7-8.2)
[2025-03-04] MEDS: POTASSIUM CHL 20MEQ/100ML 100 ML IV SCH (05:59)
--- NOTE | 2025-03-04 09:44 | ECG ---
[facility] Test Date: 2025-03-03 Test Time: 22:23:43 Pat Name: LEEANN ASHRAF Department: ICU Room: [address] [place] [address] A Gender: M Resource Analyst: caridad : [id number] Requested By: LAURIE PERAZA Order Number: [id number] Reading MD: Howard Bailey Measurements Intervals [place] Rate: 103 P: 0 RI: 0 QRS: 78 QRSD: 97 T: 97 QT: 435 QTc: 570 Interpretive Statements Atrial flutter Abnrm T, consider ischemia, anterolateral lds Prolonged QT interval Electronically Signed On 03-06-2025 15:32:47 PST by Howard Bailey Please click the below link to view image of tracing.
[2025-03-04] MEDS: PANTOPRAZOLE 40 MG TAB PO SCH (10:11)
[2025-03-04] MEDS: SODIUM CHLORIDE 0.9% 500 ML IV ONE (11:30)
--- NOTE | 2025-03-04 15:18 | DVHPN2 ---
Progress Note - Dictate Date Seen: Mar 04, 2025 Medical Necessity Reason Pt with a Central, PICC or Fol: Yes The following are medically ne: Central Line Subjective PT WITH ORG HEART DZ S/P CABG NOW WITH SEPSIS MYELOSUPPRESSION FINALLY ABLE TO MOUNT A WBC RESPONSE vital signs Vital Sign Date Time Temp Pulse Resp B/P (MAP) Pulse Ox O2 Delivery O2 Flow Rate FiO2 03/04/25 08:00 75 13 97 Room Air* 0 21 03/04/25 06:45 115/54 (74) 03/04/25 04:00 97.8 97.8 Total Intake and Output 03/03/25 03/03/25 03/04/25 15:00 23:00 07:00 Intake Total 301.175 ml 581.875 ml 477.5 ml Output Total 550 ml 1850 ml Balance 301.175 ml 31.875 ml -1372.5 ml medications Current Medications Medications Dose Ordered Sig/Danielle Route Start Time Stop Time Status Last Admin Dose Admin Aspirin 81 mg DAILY PO 03/01/25 10:00 03/04/25 10:26 81 MG Piperacillin Sod/ Tazobactam Sod 100 ml @ 25 mls/hr Q6HR IV 03/02/25 18:00 03/04/25 12:09 25 MLS/HR Insulin Glargine 8 units HS SC 03/02/25 22:00 03/03/25 22:53 8 UNITS Diagnostic Test (Pha) 1 strip ACHS 03/03/25 17:00 03/04/25 11:30 1 STRIP Insulin Human Regular HS SC 03/03/25 22:00 03/03/25 22:52 4 UNITS Insulin Human Regular AC SC 03/03/25 17:00 03/04/25 12:00 6 UNITS Dextrose 50 ml UD PRN IV 03/03/25 13:45 Norepinephrine Bitartrate 250 ml @ 1.875 mls/ hr Q24H IV 03/03/25 13:45 03/04/25 05:07 7.5 MLS/HR Apixaban 5 mg BID PO 03/03/25 22:00 03/04/25 10:24 5 MG Pantoprazole Sodium 40 mg DAILY@0600 PO 03/04/25 06:00 03/04/25 10:11 40 MG laboratory and microbiology Laboratory Tests 03/04/25 04:00 Test 03/04/25 04:00 Range/Units Serum Glucose 151 H 74-106 mg/dL Problem List N/V ABD PAIN SINUS TACHYCARDIA SECONDARY TO VOLUME DEPLETION HYPERKALEMIA MOST LIKELY SECONDARY TO ACIDOSIS METABOLIC ACIDOSIS LEUKOPENIA CONSISTENT WITH SEPSIS PMH ORGANIC HD CAD S/P CABY X1 SMALL PERICARDIAL EFFUSION POST OP PERICARDIOTOMY SYNDROME S/P POST OP AFIB/ RESOLVED HYPERLIPIDEMIA DIABETES VASCULOPATHY NEPHROPATHY R/O TYPE IV RTA WITH HYPERKALEMIA Assessment/Plan METABOLIC SUPPORT IV FLUID CORRET ACIDOSIS CORRECT HYPERKALEMIA LOKELMA ABX CONT SUPPORTIVE CARE Dietary Evaluation Review Comments: Encourage and monitor PO intakes CCHO-60 Cardiac diet Offer Glucerna 240ml PO supplement BID for additional protein and energy Expected Outcomes/Goals: gradual wt gain MARTHA FRY MD Mar 04, 2025 15:18
--- NOTE | 2025-03-04 16:42 | DVHPNRES ---
Progress Note Date Seen: Mar 04, 2025 Resident Creating Document: LYNETTE RUIZ RESIDENT Medical Necessity Reason Pt with a Central, PICC or Fol: Yes The following are medically ne: Central Line Subjective Review of Systems [place] is a 64-year-old male with PMHx significant for diabetes who came to the hospital with chief complaints of nausea, vomiting,for 2 days fever at home with T-max of 100.1 pulse sister before admission. He is status post CABG surgery performed on 02/13 in [place]. Also he had postop Afib . He reports poor oral intake and generalized weakness. He denies chest pain, shortness of breath, palpitations, syncope, abdominal pain, or diarrhea On arrival, he was noted to be tachycardic, with heart rate fluctuating from 80 to 140 bpm, but he remained in sinus tachycardia on telemetry and EKG. No episodes of atrial fibrillation were documented Past surgical history: CABG, cataract surgery family history: sister, father had heart disease. Social history: Patient denies smoking, drinking, drug use lives with: sister at home. 03/03/2025: Patient seen in the ICU. Patient today and yesterday had bradycardia. Is on Levo 1, today he does not complain of any nausea, vomiting, diarrhea. Patient had a bowel movement yesterday. Patient had a bowel movment today, is eating. He ia able to walk. 03/04/2025: Patient seen in ICU. Patient yesterday night had a episode of on sustained atrial flutter, and episodes of bradycardia ranging from 46-60. patient is on Levophed 2, 500 bolus NS was given. Patient is on room air, alert oriented and is able to eat and has had a bowel movement today. Objective vital signs Vital Sign Date Time Temp Pulse Resp B/P (MAP) Pulse Ox O2 Delivery O2 Flow Rate FiO2 03/04/25 16:00 73 10 97/55 (69) 97 03/04/25 14:00 Room Air* 0 21 03/04/25 12:00 98.1 98.1 Total Intake and Output 03/03/25 03/03/25 03/04/25 14:59 22:59 06:59 Intake Total 378.05 ml 603.125 ml 458.125 ml Output Total 550 ml 1850 ml Balance 378.05 ml 53.125 ml -1391.875 ml medications Current Medications Medications Dose Ordered Sig/Danielle Route Start Time Stop Time Status Last Admin Dose Admin Aspirin 81 mg DAILY PO 03/01/25 10:00 03/04/25 10:26 81 MG Piperacillin Sod/ Tazobactam Sod 100 ml @ 25 mls/hr Q6HR IV 03/02/25 18:00 03/04/25 12:09 25 MLS/HR Insulin Glargine 8 units HS SC 03/02/25 22:00 03/03/25 22:53 8 UNITS Diagnostic Test (Pha) 1 strip ACHS 03/03/25 17:00 03/04/25 11:30 1 STRIP Insulin Human Regular HS SC 03/03/25 22:00 03/03/25 22:52 4 UNITS Insulin Human Regular AC SC 03/03/25 17:00 03/04/25 12:00 6 UNITS Dextrose 50 ml UD PRN IV 03/03/25 13:45 Norepinephrine Bitartrate 250 ml @ 1.875 mls/ hr Q24H IV 03/03/25 13:45 03/04/25 05:07 7.5 MLS/HR Apixaban 5 mg BID PO 03/03/25 22:00 03/04/25 10:24 5 MG Pantoprazole Sodium 40 mg DAILY@0600 PO 03/04/25 06:00 03/04/25 10:11 40 MG Sodium Chloride 500 ml @ 250 mls/hr Q2H IV 03/04/25 16:30 UNV Examination Patient lying in bed, in no acute distress General: Patient alert and oriented in person, place and time. Patient following commands. HEENT: Normocephalic, atraumatic, moist mucous membranes Respiratory/pulmonary: Clear lungs bilaterally, vesicular murmurs present in almost all lung arnold, no associated crackles or wheezes. Cardiovascular: Normal heart sounds S1 and S2 with no associated murmurs, sternotomy scar present with sutures Abdomen: Abdomen nondistended, there is no pain to palpation in any of the abdominal quadrants, no palpable masses. Extremities: There is no peripheral edema present at the lower extremities. Peripheral Pulses: 3+ Radial (R). 3+ Radial (L). 3+ Dorsalis pedis (R). 3+ Dorsalis pedis(L) Skin: skin tear on sacrum Neurological: Intact cranial nerves with no focal neurologic deficits laboratory and microbiology Laboratory Tests 03/04/25 04:00 Test 03/04/25 04:00 Range/Units Serum Glucose 151 H 74-106 mg/dL Microbiology Date/Time Source Procedure Growth Status 03/01/25 17:16 Nose MRSA Screen - Final Complete 02/28/25 15:36 Blood Blood Culture - Preliminary NO GROWTH AFTER 72 HOURS OF INCUBATION. Resulted Problem List/Assessment/Plan Problem List/Assessment/Plan Neurology -alert, oriented x4 Cardiology Pericardial effusion Sinus tachycardia in the setting of sepsis/volume depletion/DKA Moderate to severe TR S/P CABG on aspirin and Eliquis at home Bradycardia PERICARDIOTOMY SYNDROME Hyperlipidemia - Echo shows EF >55%, moderate to severe TR, severe PH - continue aspirin, Lovenox - metoprolol held due to bradycardia Respiratory Severe pulmonary hypertension GI Septic shock likely due to gastroenteritis Transaminitis - monitor labs - IV Zosyn - CT scan showed Presumed postsurgical retrosternal fluid collection/ hematoma. Trace pericardial effusion. Bmkr-mc-pkyowczd stool burden. No CT evidence of bowel obstruction. Endocrine Anion gap metabolic acidosis secondary to DKA Diabetic ketoacidosis Diabetes mellitus type 2 HbA1c 7.5 Leukopenia-sepsis related - anion gap closed - lactic acid resolved - IV fluids - moderate insulin sliding scale Renal/electrolytes Acute kidney injury superimposed on CKD Hyperkalemia Hypokalemia - resolved - hyperkalemia protocol Skin Skin tear on Sacrum - Barrier cream - wound consult Prophylaxis / Supportive Care DVT Prophylaxis: Eliquis GI Prophylaxis: Protonix. Goals of care discussed with the patient for more than 39 minutes: Full code state Critical time spent 63 mins. Plan discussed with Dr. Law and RN Plan discussed with: Patient, Other (sister) My Orders My Orders Orders - LYNETTE RUIZ RESIDENT Procedure Category Date Status Time Apixaban (Eliquis) PHA 03/03/25 In Process 22:00 Pantoprazole Tablet PHA 03/04/25 In Process (Protonix Tablet) 06:00 Sodium Chloride 0.9% PHA 03/04/25 In Process 16:30 Dietary Evaluation Review Comments: Encourage and monitor PO intakes CCHO-60 Cardiac diet Offer Glucerna 240ml PO supplement BID for additional protein and energy Expected Outcomes/Goals: gradual wt gain Date of Service: Mar 04, 2025 Billing Provider: LAURIE PERAZA MD Common Visit Codes: [id number] CARE 30-74 MIN LYNETTE RUIZ Mar 04, 2025 16:42 LAURIE PERAZA MD Mar 05, 2025 11:21
[2025-03-04] MEDS: SODIUM CHLORIDE 0.9% 500 ML IV SCH (16:50)
[2025-03-05] VITALS (94 sets, daily range): BP systolic 82–138; BP diastolic 39–68; PULSE 68–122; RESP 9–25; TEMP 98.1–98.3; O2SAT 90–99
[2025-03-05 04:16] LABS: Hematocrit 32.0 % (41.0-53.0); Hemoglobin 10.8 g/dL (13.5-17.5); Mean Corpuscular Hemoglobin 30.7 pg (28.0-32.0); Mean Corpuscular Volume 91.1 fL (80.0-100.0); Nucleated Red Blood Cells % 0.1 %
[2025-03-05 04:39] LABS: Alkaline Phosphatase 111 U/L (46-116); Anion Gap 10 (5-15); BUN/Creatinine Ratio 13.0 (10.0-20.0); Carbon Dioxide 30 mmol/L (20-31); Chloride 105 mmol/L (98-107); Glucose 101 mg/dL (74-106); Potassium 3.5 mmol/L (3.5-5.1); Sodium 145 mmol/L (136-145)
[2025-03-05 04:40] LABS: Bilirubin, Total 0.5 mg/dL (0.2-1.0)
[2025-03-05 04:50] LABS: Alanine Aminotransferase 61 U/L (7-40); Albumin 2.7 g/dL (3.2-4.8); Blood Urea Nitrogen 6 mg/dL (9-23); Calcium 7.7 mg/dL (8.7-10.4); Total Protein 4.8 g/dL (5.7-8.2)
--- NOTE | 2025-03-05 05:39 | DVH ---
CHEST RADIOGRAPH Indication: r/o pul htn Technique: Single frontal view of the chest was obtained COMPARISON: XY CHEST PORTABLE on DOS: 03/01/25, XY CHEST TWO VIEWS ROUTINE on DOS: 02/28/25 FINDINGS: Lines and Tubes: Right central venous catheter in satisfactory position. Lungs: Mild congestion. Pleura: No effusion. No pneumothorax. Cardiomediastinal contours: Median sternotomy. Cardiomegaly. Bones: Unremarkable IMPRESSION: Mild congestion.
--- NOTE | 2025-03-05 07:53 | DVHPN2 ---
Progress Note - Dictate Date Seen: Mar 05, 2025 Medical Necessity Reason Pt with a Central, PICC or Fol: Yes The following are medically ne: Central Line Subjective PT WITH ORG HEART DZ S/P CABG NOW WITH SEPSIS MYELOSUPPRESSION FINALLY ABLE TO MOUNT A WBC RESPONSE vital signs Vital Sign Date Time Temp Pulse Resp B/P (MAP) Pulse Ox O2 Delivery O2 Flow Rate FiO2 03/05/25 06:45 71 13 111/62 (78) 97 03/05/25 06:00 Room Air* 0 21 03/05/25 04:00 98.1 98.1 Total Intake and Output 03/04/25 03/04/25 03/05/25 15:00 23:00 07:00 Intake Total 1030.000 ml 1858.750 ml 628.125 ml Output Total 2200 ml 2500 ml Balance 1030.000 ml -341.250 ml -1871.875 ml medications Current Medications Medications Dose Ordered Sig/Danielle Route Start Time Stop Time Status Last Admin Dose Admin Aspirin 81 mg DAILY PO 03/01/25 10:00 03/04/25 10:26 81 MG Piperacillin Sod/ Tazobactam Sod 100 ml @ 25 mls/hr Q6HR IV 03/02/25 18:00 03/05/25 05:27 25 MLS/HR Insulin Glargine 8 units HS SC 03/02/25 22:00 03/04/25 21:12 8 UNITS Diagnostic Test (Pha) 1 strip ACHS 03/03/25 17:00 03/05/25 05:53 1 STRIP Insulin Human Regular HS SC 03/03/25 22:00 03/04/25 21:11 6 UNITS Insulin Human Regular AC SC 03/03/25 17:00 03/04/25 16:54 6 UNITS Dextrose 50 ml UD PRN IV 03/03/25 13:45 Norepinephrine Bitartrate 250 ml @ 1.875 mls/ hr Q24H IV 03/03/25 13:45 03/04/25 05:07 7.5 MLS/HR Apixaban 5 mg BID PO 03/03/25 22:00 03/04/25 21:07 5 MG Pantoprazole Sodium 40 mg DAILY@0600 PO 03/04/25 06:00 03/05/25 05:26 40 MG Sodium Chloride 500 ml @ 250 mls/hr Q2H IV 03/04/25 16:30 03/04/25 21:13 250 MLS/HR laboratory and microbiology Laboratory Tests 03/05/25 04:00 Test 03/05/25 04:00 Range/Units Serum Glucose 101 74-106 mg/dL Problem List N/V ABD PAIN SINUS TACHYCARDIA SECONDARY TO VOLUME DEPLETION HYPERKALEMIA MOST LIKELY SECONDARY TO ACIDOSIS METABOLIC ACIDOSIS LEUKOPENIA CONSISTENT WITH SEPSIS PMH ORGANIC HD CAD S/P CABY X1 SMALL PERICARDIAL EFFUSION POST OP PERICARDIOTOMY SYNDROME S/P POST OP AFIB/ RESOLVED HYPERLIPIDEMIA DIABETES VASCULOPATHY NEPHROPATHY R/O TYPE IV RTA WITH HYPERKALEMIA PAH SEVERE TR Assessment/Plan METABOLIC SUPPORT IV FLUID CORRET ACIDOSIS CORRECT HYPERKALEMIA LOKELMA ABX CONT SUPPORTIVE CARE HYPERKALEMIA CORRECTED LYTES WNL LEUKOCYTOSIS RESOLVED CXR RETROCARDIAC INFILTRATE SEVERE PAH START REVATIO OR ADCIRCA REPEAT ECHO TO REASSESS PUL PRESSURE R/O PE Dietary Evaluation Review Comments: Encourage and monitor PO intakes CCHO-60 Cardiac diet Offer Glucerna 240ml PO supplement BID for additional protein and energy Expected Outcomes/Goals: gradual wt gain Plan discussed with: Patient Critical Care Time(min): 35 MARTHA FRY MD Mar 05, 2025 07:53
[2025-03-05] MEDS: IOHEXOL 350 MG/ML 100ML IJ ONE (10:08)
[2025-03-05] MEDS: SODIUM CHLORIDE 0.9% 250 ML IV ONE (11:00)
--- NOTE | 2025-03-05 11:12 | DVH ---
CTA Chest with intravenous contrast INDICATION: R/O PE. Chest pain. COMPARISON: XY CHEST XRAY 1 VIEW on DOS: 03/05/25, XY CHEST PORTABLE on DOS: 03/01/25, XY CHEST TWO VIEWS ROUTINE on DOS: 02/28/25 TECHNIQUE: Multidetector spiral CTA of the chest was performed of the chest with intravenous contrast. PULMONARY ANGIOGRAPHY PROTOCOL was utilized using a bolus- tracking technique centered on the main pulmonary artery. Axial, coronal and sagittal multiplanar and MIP reformats were performed. Radiation Dose : 1. Chest: CTDI volume is 9.34 mGy. Dose-length product is 320.25 mGy*cm The dose indicators for CT are the volume Computed Tomography (CT) Dose Index (CTDIvol) and the Dose Length Product (DLP), and are measured in units of mGy and mGy-cm, respectively. These indicators are not patient dose, but values generated from the CT scanner acquisition factors. The report includes radiation exposure data for exposures received during this examination. Contrast: 100 cc Omnipaque 350. Findings: Pulmonary artery: No pulmonary embolism Lower neck: Normal thyroid. Lungs: Central airways patent. Mild passive atelectatic changes. No suspect pulmonary nodules. Heart/Vascular Structures: Mild multichamber cardiac enlargement. Coronary calcifications. Small pericardial effusion. Lymph Nodes: No adenopathy Pleura: Small bilateral pleural effusions. Musculoskeletal: No acute osseous abnormality. Soft tissues: Normal. Upper abdomen: Limited portions of the upper abdomen are unremarkable. IMPRESSION: No pulmonary embolus. Small bilateral pleural effusions with dependent atelectatic changes in both lungs. No overt pulmonary edema at this time.
[2025-03-05] MEDS: POTASSIUM CHL 20MEQ/100ML 100 ML IV ONE (11:52)
[2025-03-05] MEDS: PIPERACILLIN-TAZOB 3.375GM 100 ML IV SCH (14:40)
--- NOTE | 2025-03-05 16:57 | DVHPNRES ---
Progress Note Date Seen: Mar 05, 2025 Resident Creating Document: LYNETTE RUIZ RESIDENT Medical Necessity Reason Pt with a Central, PICC or Fol: Yes The following are medically ne: Central Line Subjective Review of Systems [place] is a 64-year-old male with PMHx significant for diabetes who came to the hospital with chief complaints of nausea, vomiting,for 2 days fever at home with T-max of 100.1 pulse sister before admission. He is status post CABG surgery performed on 02/13 in [place]. Also he had postop Afib . He reports poor oral intake and generalized weakness. He denies chest pain, shortness of breath, palpitations, syncope, abdominal pain, or diarrhea On arrival, he was noted to be tachycardic, with heart rate fluctuating from 80 to 140 bpm, but he remained in sinus tachycardia on telemetry and EKG. No episodes of atrial fibrillation were documented Past surgical history: CABG, cataract surgery family history: sister, father had heart disease. Social history: Patient denies smoking, drinking, drug use lives with: sister at home. 03/03/2025: Patient seen in the ICU. Patient today and yesterday had bradycardia. Is on Levo 1, today he does not complain of any nausea, vomiting, diarrhea. Patient had a bowel movement yesterday. Patient had a bowel movment today, is eating. He ia able to walk. 03/04/2025: Patient seen in ICU. Patient yesterday night had a episode of on sustained atrial flutter, and episodes of bradycardia ranging from 46-60. patient is on Levophed 2, 500 bolus NS was given. Patient is on room air, alert oriented and is able to eat and has had a bowel movement today. 03/05/2025: Patient seen in ICU. Patient has had a bowel movement. , eating well, no episodes of atrial flutter or bradycardia noted. Patient is on Levo to, 250 bolus was given. Patient is on room air. Objective vital signs Vital Sign Date Time Temp Pulse Resp B/P (MAP) Pulse Ox O2 Delivery O2 Flow Rate FiO2 03/05/25 16:00 12 96 Room Air* 0 21 03/05/25 16:00 89 03/05/25 15:15 95/57 (70) 03/05/25 12:00 98.3 98.3 Total Intake and Output 03/04/25 03/04/25 03/05/25 15:00 23:00 07:00 Intake Total 1030.000 ml 1858.750 ml 656.875 ml Output Total 2200 ml 2500 ml Balance 1030.000 ml -341.250 ml -1843.125 ml medications Current Medications Medications Dose Ordered Sig/Danielle Route Start Time Stop Time Status Last Admin Dose Admin Aspirin 81 mg DAILY PO 03/01/25 10:00 03/05/25 10:39 81 MG Insulin Glargine 8 units HS SC 03/02/25 22:00 03/04/25 21:12 8 UNITS Diagnostic Test (Pha) 1 strip ACHS 03/03/25 17:00 03/05/25 11:30 1 STRIP Insulin Human Regular HS SC 03/03/25 22:00 03/04/25 21:11 6 UNITS Insulin Human Regular AC SC 03/03/25 17:00 03/05/25 11:54 6 UNITS Dextrose 50 ml UD PRN IV 03/03/25 13:45 Norepinephrine Bitartrate 250 ml @ 1.875 mls/ hr Q24H IV 03/03/25 13:45 03/04/25 05:07 7.5 MLS/HR Apixaban 5 mg BID PO 03/03/25 22:00 03/05/25 10:40 5 MG Pantoprazole Sodium 40 mg DAILY@0600 PO 03/04/25 06:00 03/05/25 05:26 40 MG Piperacillin Sod/ Tazobactam Sod 100 ml @ 25 mls/hr Q8HR IV 03/05/25 14:00 03/05/25 14:40 25 MLS/HR Examination Patient lying in bed, in no acute distress General: Patient alert and oriented in person, place and time. Patient following commands. HEENT: Normocephalic, atraumatic, moist mucous membranes Respiratory/pulmonary: Clear lungs bilaterally, vesicular murmurs present in almost all lung arnold, no associated crackles or wheezes. Cardiovascular: Normal heart sounds S1 and S2 with no associated murmurs, sternotomy scar present with sutures Abdomen: Abdomen nondistended, there is no pain to palpation in any of the abdominal quadrants, no palpable masses. Extremities: There is no peripheral edema present at the lower extremities. Peripheral Pulses: 3+ Radial (R). 3+ Radial (L). 3+ Dorsalis pedis (R). 3+ Dorsalis pedis(L) Skin: skin tear on sacrum Neurological: Intact cranial nerves with no focal neurologic deficits laboratory and microbiology Laboratory Tests 03/05/25 04:00 Test 03/05/25 04:00 Range/Units Serum Glucose 101 74-106 mg/dL Microbiology Date/Time Source Procedure Growth Status 03/01/25 17:16 Nose MRSA Screen - Final Complete 02/28/25 15:36 Blood Blood Culture - Final NO GROWTH AFTER 5 DAYS OF INCUBATION. Complete Problem List/Assessment/Plan Problem List/Assessment/Plan Neurology -alert, oriented x4 Cardiology Pericardial effusion Sinus tachycardia in the setting of sepsis/volume depletion/DKA Moderate to severe TR S/P CABG on aspirin and Eliquis at home Bradycardia PERICARDIOTOMY SYNDROME Hyperlipidemia - Echo shows EF >55%, moderate to severe TR, severe PH - continue aspirin, Lovenox - metoprolol held due to bradycardia Respiratory Severe pulmonary hypertension GI Septic shock likely due to gastroenteritis Transaminitis - monitor labs - IV Zosyn - CT scan showed Presumed postsurgical retrosternal fluid collection/ hematoma. Trace pericardial effusion. [id number] stool burden. No CT evidence of bowel obstruction. Endocrine Anion gap metabolic acidosis secondary to DKA Diabetic ketoacidosis Diabetes mellitus type 2 HbA1c 7.5 Leukopenia-sepsis related - anion gap closed - lactic acid resolved - IV fluids - moderate insulin sliding scale Renal/electrolytes Acute kidney injury superimposed on CKD Hyperkalemia Hypokalemia - resolved - hyperkalemia protocol Skin Skin tear on Sacrum - Barrier cream - wound consult Prophylaxis / Supportive Care DVT Prophylaxis: Eliquis GI Prophylaxis: Protonix. Goals of care discussed with the patient for more than 39 minutes: Full code state Critical time spent 43 mins. Plan discussed with Dr. Law and RN Plan discussed with: Patient My Orders My Orders Orders - LYNETTE RUIZ RESIDENT Procedure Category Date Status Time Sodium Chloride 0.9% PHA 03/05/25 Logged 16:30 Dietary Evaluation Review Comments: Encourage and monitor PO intakes CCHO-60 Cardiac diet Offer Glucerna 240ml PO supplement BID for additional protein and energy Expected Outcomes/Goals: gradual wt gain Date of Service: Mar 05, 2025 Billing Provider: LAURIE PERAZA MD Common Visit Codes: [id number] CARE 30-74 MIN LYNETTE RUIZ Mar 05, 2025 16:57 LAURIE PERAZA MD Mar 07, 2025 18:19
[2025-03-06] VITALS (75 sets, daily range): BP systolic 85–118; BP diastolic 42–84; PULSE 67–162; RESP 10–19; TEMP 97.6–98; O2SAT 95–99
[2025-03-06 04:07] LABS: Hematocrit 32.1 % (41.0-53.0); Hemoglobin 11.0 g/dL (13.5-17.5); Mean Corpuscular Hemoglobin 31.3 pg (28.0-32.0); Mean Corpuscular Volume 91.6 fL (80.0-100.0); Nucleated Red Blood Cells % 0.1 %
[2025-03-06 04:25] LABS: Alkaline Phosphatase 111 U/L (46-116); Anion Gap 8 (5-15); BUN/Creatinine Ratio 17.9 (10.0-20.0); Bilirubin, Total 0.5 mg/dL (0.2-1.0); Blood Urea Nitrogen 10 mg/dL (9-23); Carbon Dioxide 29 mmol/L (20-31); Chloride 104 mmol/L (98-107); Potassium 3.8 mmol/L (3.5-5.1); Sodium 141 mmol/L (136-145)
[2025-03-06 04:32] LABS: Alanine Aminotransferase 44 U/L (7-40); Albumin 2.9 g/dL (3.2-4.8); Calcium 8.1 mg/dL (8.7-10.4); Glucose 166 mg/dL (74-106); Total Protein 5.2 g/dL (5.7-8.2)
[2025-03-06] MEDS: AMIODARONE BOLUS KIT 100 ML IV ONE ×2 (04:43→04:44)
--- NOTE | 2025-03-06 05:48 | DVH ---
CHEST RADIOGRAPH Indication: r/o pul congestion Technique: Single frontal view of the chest was obtained COMPARISON: XY CHEST XRAY 1 VIEW on DOS: 03/05/25, XY CHEST PORTABLE on DOS: 03/01/25, XY CHEST TWO VIEWS ROUTINE on DOS: 02/28/25 FINDINGS: Right IJ line with tip terminating near the cavoatrial junction. Lungs and pleural spaces are clear. Cardiac silhouette and zaheer are within normal limits. Bones and soft tissues demonstrate no significant abnormality. IMPRESSION: No acute disease.
--- NOTE | 2025-03-06 12:41 | DVHPN2 ---
Progress Note - Dictate Date Seen: Mar 06, 2025 Medical Necessity Reason Pt with a Central, PICC or Fol: Yes The following are medically ne: Central Line Subjective PT WITH ORG HEART DZ S/P CABG NOW WITH SEPSIS MYELOSUPPRESSION FINALLY ABLE TO MOUNT A WBC RESPONSE vital signs Vital Sign Date Time Temp Pulse Resp B/P (MAP) Pulse Ox O2 Delivery O2 Flow Rate FiO2 03/06/25 11:28 113/56 03/06/25 10:00 12 98 Room Air* 0 21 03/06/25 10:00 71 03/06/25 08:00 97.7 97.7 Total Intake and Output 03/05/25 03/05/25 03/06/25 15:00 23:00 07:00 Intake Total 453.125 ml 813.750 ml 838.740 ml Output Total 2340 ml 1000 ml Balance 453.125 ml -1526.250 ml -161.260 ml medications Current Medications Medications Dose Ordered Sig/Danielle Route Start Time Stop Time Status Last Admin Dose Admin Aspirin 81 mg DAILY PO 03/01/25 10:00 03/06/25 09:23 81 MG Insulin Glargine 8 units HS SC 03/02/25 22:00 03/05/25 21:48 8 UNITS Diagnostic Test (Pha) 1 strip ACHS 03/03/25 17:00 03/06/25 05:47 1 STRIP Insulin Human Regular HS SC 03/03/25 22:00 03/05/25 21:47 4 UNITS Insulin Human Regular AC SC 03/03/25 17:00 03/06/25 05:49 3 UNITS Dextrose 50 ml UD PRN IV 03/03/25 13:45 Norepinephrine Bitartrate 250 ml @ 1.875 mls/ hr Q24H IV 03/03/25 13:45 03/05/25 20:38 3.75 MLS/HR Apixaban 5 mg BID PO 03/03/25 22:00 03/06/25 09:23 5 MG Pantoprazole Sodium 40 mg DAILY@0600 PO 03/04/25 06:00 03/06/25 05:47 40 MG Piperacillin Sod/ Tazobactam Sod 100 ml @ 25 mls/hr Q8HR IV 03/05/25 14:00 03/06/25 05:47 25 MLS/HR Amiodarone HCl 250 ml @ 16.66 mls/ hr Q15H1M IV 03/06/25 10:45 03/06/25 11:23 16.66 MLS/HR laboratory and microbiology Laboratory Tests 03/06/25 03:20 Test 03/06/25 03:20 Range/Units Serum Glucose 166 H 74-106 mg/dL Problem List N/V ABD PAIN SINUS TACHYCARDIA SECONDARY TO VOLUME DEPLETION HYPERKALEMIA MOST LIKELY SECONDARY TO ACIDOSIS METABOLIC ACIDOSIS LEUKOPENIA CONSISTENT WITH SEPSIS PMH ORGANIC HD CAD S/P CABY X1 SMALL PERICARDIAL EFFUSION POST OP PERICARDIOTOMY SYNDROME S/P POST OP AFIB/ RESOLVED HYPERLIPIDEMIA DIABETES VASCULOPATHY NEPHROPATHY R/O TYPE IV RTA WITH HYPERKALEMIA PAH SEVERE TR Assessment/Plan METABOLIC SUPPORT IV FLUID CORRET ACIDOSIS CORRECT HYPERKALEMIA LOKELMA ABX CONT SUPPORTIVE CARE HYPERKALEMIA CORRECTED LYTES WNL LEUKOCYTOSIS RESOLVED CXR RETROCARDIAC INFILTRATE SEVERE PAH START REVATIO OR ADCIRCA REPEAT ECHO TO REASSESS PUL PRESSURE R/O PE Dietary Evaluation Review Comments: Encourage and monitor PO intakes CCHO-60 Cardiac diet Offer Glucerna 240ml PO supplement BID for additional protein and energy Expected Outcomes/Goals: gradual wt gain Plan discussed with: Other Critical Care Time(min): 35 MARTHA FRY MD Mar 06, 2025 12:41
--- NOTE | 2025-03-06 14:56 | DVHPNRES ---
Progress Note Date Seen: Mar 06, 2025 Resident Creating Document: LYNETTE RUIZ RESIDENT Medical Necessity Reason Pt with a Central, PICC or Fol: Yes The following are medically ne: Central Line Subjective Review of Systems Ph[place] is a 64-year-old male with PMHx significant for diabetes who came to the hospital with chief complaints of nausea, vomiting,for 2 days fever at home with T-max of 100.1 pulse sister before admission. He is status post CABG surgery performed on 02/13 in [place]. Also he had postop Afib . He reports poor oral intake and generalized weakness. He denies chest pain, shortness of breath, palpitations, syncope, abdominal pain, or diarrhea On arrival, he was noted to be tachycardic, with heart rate fluctuating from 80 to 140 bpm, but he remained in sinus tachycardia on telemetry and EKG. No episodes of atrial fibrillation were documented Past surgical history: CABG, cataract surgery family history: sister, father had heart disease. Social history: Patient denies smoking, drinking, drug use lives with: sister at home. 03/03/2025: Patient seen in the ICU. Patient today and yesterday had bradycardia. Is on Levo 1, today he does not complain of any nausea, vomiting, diarrhea. Patient had a bowel movement yesterday. Patient had a bowel movment today, is eating. He ia able to walk. 03/04/2025: Patient seen in ICU. Patient yesterday night had a episode of on sustained atrial flutter, and episodes of bradycardia ranging from 46-60. patient is on Levophed 2, 500 bolus NS was given. Patient is on room air, alert oriented and is able to eat and has had a bowel movement today. 03/05/2025: Patient seen in ICU. Patient has had a bowel movement. , eating well, no episodes of atrial flutter or bradycardia noted. Patient is on Levo to, 250 bolus was given. Patient is on room air. 03/06/2025: Patient seen in ICU. It had episode of atrial flutter for 1 hour. Blood pressure has dropped in Levophed was increased to 4 patient was started on amnio drip. Patient reported palpitations but no chest pain or shortness of breath. Patient is on room air, today given 250 mL bolus. Patient is able to eat and had 2 bowel movements yesterday. Cardiology following. 250 mL bolus given. Objective vital signs Vital Sign Date Time Temp Pulse Resp B/P (MAP) Pulse Ox O2 Delivery O2 Flow Rate FiO2 03/06/25 14:30 78 12 94/56 (69) 98 03/06/25 14:00 Room Air* 0 21 03/06/25 12:00 97.6 97.6 Total Intake and Output 03/05/25 03/05/25 03/06/25 15:00 23:00 07:00 Intake Total 703.125 ml 813.750 ml 838.740 ml Output Total 2340 ml 1000 ml Balance 703.125 ml -1526.250 ml -161.260 ml medications Current Medications Medications Dose Ordered Sig/Danielle Route Start Time Stop Time Status Last Admin Dose Admin Aspirin 81 mg DAILY PO 03/01/25 10:00 03/06/25 09:23 81 MG Insulin Glargine 8 units HS SC 03/02/25 22:00 03/05/25 21:48 8 UNITS Diagnostic Test (Pha) 1 strip ACHS 03/03/25 17:00 03/06/25 12:00 1 STRIP Insulin Human Regular HS SC 03/03/25 22:00 03/05/25 21:47 4 UNITS Insulin Human Regular AC SC 03/03/25 17:00 03/06/25 12:49 6 UNITS Dextrose 50 ml UD PRN IV 03/03/25 13:45 Norepinephrine Bitartrate 250 ml @ 1.875 mls/ hr Q24H IV 03/03/25 13:45 03/05/25 20:38 3.75 MLS/HR Apixaban 5 mg BID PO 03/03/25 22:00 03/06/25 09:23 5 MG Pantoprazole Sodium 40 mg DAILY@0600 PO 03/04/25 06:00 03/06/25 05:47 40 MG Piperacillin Sod/ Tazobactam Sod 100 ml @ 25 mls/hr Q8HR IV 03/05/25 14:00 03/06/25 05:47 25 MLS/HR Amiodarone HCl 250 ml @ 16.66 mls/ hr Q15H1M IV 03/06/25 10:45 03/06/25 11:23 16.66 MLS/HR Examination Patient lying in bed, in no acute distress General: Patient alert and oriented in person, place and time. Patient following commands. HEENT: Normocephalic, atraumatic, moist mucous membranes Respiratory/pulmonary: Clear lungs bilaterally, vesicular murmurs present in almost all lung arnold, no associated crackles or wheezes. Cardiovascular: Normal heart sounds S1 and S2 with no associated murmurs, sternotomy scar present with sutures Abdomen: Abdomen nondistended, there is no pain to palpation in any of the abdominal quadrants, no palpable masses. Extremities: There is no peripheral edema present at the lower extremities. Peripheral Pulses: 3+ Radial (R). 3+ Radial (L). 3+ Dorsalis pedis (R). 3+ Dorsalis pedis(L) Skin: skin tear on sacrum Neurological: Intact cranial nerves with no focal neurologic deficits laboratory and microbiology Laboratory Tests 03/06/25 03:20 Test 03/06/25 03:20 Range/Units Serum Glucose 166 H 74-106 mg/dL Microbiology Date/Time Source Procedure Growth Status 03/01/25 17:16 Nose MRSA Screen - Final Complete 02/28/25 15:36 Blood Blood Culture - Final NO GROWTH AFTER 5 DAYS OF INCUBATION. Complete Problem List/Assessment/Plan Problem List/Assessment/Plan Neurology -alert, oriented x4 Cardiology Pericardial effusion Sinus tachycardia in the setting of sepsis/volume depletion/DKA Moderate to severe TR S/P CABG on aspirin and Eliquis at home Bradycardia PERICARDIOTOMY SYNDROME Hyperlipidemia - Echo shows EF >55%, moderate to severe TR, severe PH - continue aspirin, Lovenox - metoprolol held due to bradycardia Respiratory Severe pulmonary hypertension GI Septic shock likely due to gastroenteritis Transaminitis - monitor labs - IV Zosyn - CT scan showed Presumed postsurgical retrosternal fluid collection/ hematoma. Trace pericardial effusion. Wcas-[id number] stool burden. No CT evidence of bowel obstruction. Endocrine Anion gap metabolic acidosis secondary to DKA Diabetic ketoacidosis Diabetes mellitus type 2 HbA1c 7.5 Leukopenia-sepsis related - anion gap closed - lactic acid resolved - IV fluids - moderate insulin sliding scale Renal/electrolytes Acute kidney injury superimposed on CKD Hyperkalemia Hypokalemia - resolved - hyperkalemia protocol Skin Skin tear on Sacrum - Barrier cream - wound consult Prophylaxis / Supportive Care DVT Prophylaxis: Eliquis GI Prophylaxis: Protonix. Goals of care discussed with the patient for more than 39 minutes: Full code state Critical time spent 83 mins. Plan discussed with Dr. Mendoza and RN Plan discussed with: Patient My Orders My Orders Orders - LYNETTE RUIZ RESIDENT Procedure Category Date Status Time Chest Xray 1 View XY 03/06/25 Resulted 04:00 Sodium Chloride 0.9% PHA 03/06/25 Logged 15:00 Dietary Evaluation Review Comments: Encourage and monitor PO intakes CCHO-60 Cardiac diet Offer Glucerna 240ml PO supplement BID for additional protein and energy Expected Outcomes/Goals: gradual wt gain LYNETTE RUIZ RESIDENT Mar 06, 2025 14:55
[2025-03-06] MEDS: SODIUM CHLORIDE 0.9% 250 ML IV ONE (15:00)
[2025-03-06] MEDS: INSULIN LANTUS (GLARGINE) 1 /0.01ml (100units/ml) SC SCH (22:00)
[2025-03-07] VITALS (71 sets, daily range): BP systolic 84–115; BP diastolic 37–66; PULSE 66–93; RESP 5–24; TEMP 98–98.3; O2SAT 95–99
[2025-03-07 04:43] LABS: Hematocrit 32.0 % (41.0-53.0); Hemoglobin 11.0 g/dL (13.5-17.5); Mean Corpuscular Hemoglobin 31.3 pg (28.0-32.0); Mean Corpuscular Volume 91.1 fL (80.0-100.0); Nucleated Red Blood Cells % 0.1 %
[2025-03-07 05:06] LABS: Alanine Aminotransferase 37 U/L (7-40); Alkaline Phosphatase 105 U/L (46-116); Anion Gap 10 (5-15); BUN/Creatinine Ratio 17.6 (10.0-20.0); Bilirubin, Total 0.5 mg/dL (0.2-1.0); Blood Urea Nitrogen 12 mg/dL (9-23); Carbon Dioxide 30 mmol/L (20-31); Chloride 102 mmol/L (98-107); Potassium 3.8 mmol/L (3.5-5.1); Sodium 142 mmol/L (136-145)
[2025-03-07 05:08] LABS: Albumin 3.1 g/dL (3.2-4.8); Calcium 8.3 mg/dL (8.7-10.4); Glucose 127 mg/dL (74-106); Total Protein 5.3 g/dL (5.7-8.2)
--- NOTE | 2025-03-07 05:32 | DVH ---
CHEST RADIOGRAPH Indication: r/o effusion Technique: 1 view Comparison: Previous study chest radiograph, CTA chest 2 days prior FINDINGS: Lines and Tubes: Unchanged. Lungs/Pleura: Unchanged. Cardiomediastinum: Unchanged. Other: Unchanged osseous structures. IMPRESSION: 1. No significant change from the previous day. Trace effusions and mild basilar airspace disease better seen on recent CT.
--- NOTE | 2025-03-07 11:31 | DVHPNRES ---
Progress Note Date Seen: Mar 07, 2025 Resident Creating Document: KRYS CHU RESIDENT Medical Necessity Reason Pt with a Central, PICC or Fol: Yes The following are medically ne: Central Line Subjective Review of Systems Review of Systems Phani [place] is a 64-year-old male with PMHx significant for diabetes who came to the hospital with chief complaints of nausea, vomiting,for 2 days fever at home with T-max of 100.1 pulse sister before admission. He is status post CABG surgery performed on 02/13 in [place]. Also he had postop Afib . He reports poor oral intake and generalized weakness. He denies chest pain, shortness of breath, palpitations, syncope, abdominal pain, or diarrhea On arrival, he was noted to be tachycardic, with heart rate fluctuating from 80 to 140 bpm, but he remained in sinus tachycardia on telemetry and EKG. No episodes of atrial fibrillation were documented Past surgical history: CABG, cataract surgery family history: sister, father had heart disease. Social history: Patient denies smoking, drinking, drug use lives with: sister at home. 03/03/2025: Patient seen in the ICU. Patient today and yesterday had bradycardia. Is on Levo 1, today he does not complain of any nausea, vomiting, diarrhea. Patient had a bowel movement yesterday. Patient had a bowel movment today, is eating. He ia able to walk. 03/04/2025: Patient seen in ICU. Patient yesterday night had a episode of on sustained atrial flutter, and episodes of bradycardia ranging from 46-60. patient is on Levophed 2, 500 bolus NS was given. Patient is on room air, alert oriented and is able to eat and has had a bowel movement today. 03/05/2025: Patient seen in ICU. Patient has had a bowel movement. , eating well, no episodes of atrial flutter or bradycardia noted. Patient is on Levo to, 250 bolus was given. Patient is on room air. 03/06/2025: Patient seen in ICU. It had episode of atrial flutter for 1 hour. Blood pressure has dropped in Levophed was increased to 4 patient was started on amnio drip. Patient reported palpitations but no chest pain or shortness of breath. Patient is on room air, today given 250 mL bolus. Patient is able to eat and had 2 bowel movements yesterday. Cardiology following. 250 mL bolus given. 03/07/25 pt is currently on norepinephrine @ 2 mcg/min. not mentioning any other complaints given 500c bolus Objective vital signs Vital Sign Date Time Temp Pulse Resp B/P (MAP) Pulse Ox O2 Delivery O2 Flow Rate FiO2 03/07/25 06:00 12 98 Room Air* 0 21 03/07/25 06:00 68 03/07/25 00:36 86/47 03/06/25 16:00 97.8 97.8 Total Intake and Output 03/06/25 03/06/25 03/07/25 15:00 23:00 07:00 Intake Total 974.745 ml 1129.335 ml 328.085 ml Output Total 1425 ml 1450 ml Balance 974.745 ml -295.665 ml -1121.915 ml medications Current Medications Medications Dose Ordered Sig/Danielle Route Start Time Stop Time Status Last Admin Dose Admin Aspirin 81 mg DAILY PO 03/01/25 10:00 03/07/25 09:38 81 MG Diagnostic Test (Pha) 1 strip ACHS 03/03/25 17:00 03/07/25 06:39 1 STRIP Insulin Human Regular HS SC 03/03/25 22:00 03/06/25 22:00 3 UNITS Insulin Human Regular AC SC 03/03/25 17:00 03/07/25 06:22 2 UNITS Dextrose 50 ml UD PRN IV 03/03/25 13:45 Norepinephrine Bitartrate 250 ml @ 1.875 mls/ hr Q24H IV 03/03/25 13:45 03/05/25 20:38 3.75 MLS/HR Apixaban 5 mg BID PO 03/03/25 22:00 03/07/25 09:38 5 MG Pantoprazole Sodium 40 mg DAILY@0600 PO 03/04/25 06:00 03/07/25 06:22 40 MG Piperacillin Sod/ Tazobactam Sod 100 ml @ 25 mls/hr Q8HR IV 03/05/25 14:00 03/07/25 06:39 25 MLS/HR Amiodarone HCl 250 ml @ 16.66 mls/ hr Q15H1M IV 03/06/25 10:45 03/07/25 01:36 16.66 MLS/HR Insulin Glargine 10 units HS SC 03/06/25 22:00 03/06/25 22:00 10 UNITS Examination Patient lying in bed, in no acute distress General: Patient alert and oriented in person, place and time. Patient following commands. HEENT: Normocephalic, atraumatic, moist mucous membranes Respiratory/pulmonary: Clear lungs bilaterally, vesicular murmurs present in almost all lung arnold, no associated crackles or wheezes. Cardiovascular: Normal heart sounds S1 and S2 with no associated murmurs, sternotomy scar present with sutures Abdomen: Abdomen nondistended, there is no pain to palpation in any of the abdominal quadrants, no palpable masses. Extremities: There is no peripheral edema present at the lower extremities. Peripheral Pulses: 3+ Radial (R). 3+ Radial (L). 3+ Dorsalis pedis (R). 3+ Dorsalis pedis(L) Skin: skin tear on sacrum Neurological: Intact cranial nerves with no focal neurologic deficits laboratory and microbiology Laboratory Tests 03/07/25 03:50 Test 03/07/25 03:50 Range/Units Serum Glucose 127 H 74-106 mg/dL Microbiology Date/Time Source Procedure Growth Status 03/01/25 17:16 Nose MRSA Screen - Final Complete 02/28/25 15:36 Blood Blood Culture - Final NO GROWTH AFTER 5 DAYS OF INCUBATION. Complete Labs and/or images reviewed: Labs reviewed by me, Image(s) reviewed by me Problem List/Assessment/Plan Problem List/Assessment/Plan Neurology -alert, oriented x4 Cardiology Pericardial effusion Sinus tachycardia in the setting of sepsis/volume depletion/DKA Moderate to severe TR S/P CABG on aspirin and Eliquis at home Bradycardia PERICARDIOTOMY SYNDROME Hyperlipidemia - Echo shows EF >55%, moderate to severe TR, severe PH - continue aspirin, Lovenox - metoprolol held due to bradycardia Respiratory Severe pulmonary hypertension GI Septic shock likely due to gastroenteritis Transaminitis - monitor labs - IV Zosyn - CT scan showed Presumed postsurgical retrosternal fluid collection/ hematoma. Trace pericardial effusion. Jcrf-[id number]-voobypen stool burden. No CT evidence of bowel obstruction. Endocrine Anion gap metabolic acidosis secondary to DKA Diabetic ketoacidosis Diabetes mellitus type 2 HbA1c 7.5 Leukopenia-sepsis related - anion gap closed - lactic acid resolved - IV fluids - moderate insulin sliding scale Renal/electrolytes Acute kidney injury superimposed on CKD Hyperkalemia Hypokalemia - resolved - hyperkalemia protocol Skin Skin tear on Sacrum - Barrier cream - wound consult Prophylaxis / Supportive Care DVT Prophylaxis: Eliquis GI Prophylaxis: Protonix. 03/07/25 pt is currently on norepinephrine @ 2 mcg/min. not mentioning any other complaints given 500c bolus Goals of care discussed with the patient for more than 39 minutes: Full code state Family at bedside updated about the patient condition Critical time spent 77 mins. Plan discussed with Dr. Mendoza Plan discussed with: Patient, Other Dietary Evaluation Review Comments: Encourage and monitor PO intakes CCHO-60 Cardiac diet Offer Glucerna 240ml PO supplement BID for additional protein and energy Expected Outcomes/Goals: gradual wt gain KRYS CHU RESIDENT Mar 07, 2025 11:30
[2025-03-07] MEDS: SODIUM CHLORIDE 0.9% 500 ML IV ONE ×2 (12:50→18:42)
[2025-03-08] VITALS (98 sets, daily range): BP systolic 83–127; BP diastolic 39–64; PULSE 66–86; RESP 9–20; TEMP 97.5–98.4; O2SAT 95–100
[2025-03-08 04:36] LABS: Hematocrit 30.4 % (41.0-53.0); Hemoglobin 10.4 g/dL (13.5-17.5); Mean Corpuscular Hemoglobin 31.5 pg (28.0-32.0); Mean Corpuscular Volume 91.5 fL (80.0-100.0)
[2025-03-08 04:44] LABS: Anion Gap 7 (5-15); Carbon Dioxide 29 mmol/L (20-31); Chloride 105 mmol/L (98-107); Potassium 4.1 mmol/L (3.5-5.1); Sodium 141 mmol/L (136-145)
[2025-03-08 04:50] LABS: BUN/Creatinine Ratio 14.3 (10.0-20.0); Blood Urea Nitrogen 9 mg/dL (9-23); Magnesium 2.0 mg/dL (1.6-2.6)
[2025-03-08 04:53] LABS: Calcium 8.0 mg/dL (8.7-10.4); Glucose 142 mg/dL (74-106)
--- NOTE | 2025-03-08 05:45 | DVH ---
CHEST RADIOGRAPH Indication: pericardial effusion Technique: 1 view Comparison: XY CHEST XRAY 1 VIEW on DOS: 03/07/25, XY CHEST XRAY 1 VIEW on DOS: 03/06/25, XY CHEST XRAY 1 VIEW on DOS: 03/05/25, XY CHEST PORTABLE on DOS: 03/01/25 FINDINGS: Lines and Tubes: Unchanged right IJ catheter. Lungs/Pleura: Unchanged. Cardiomediastinum: Unchanged. Other: Unchanged osseous structures. IMPRESSION: 1. No significant change from the previous study. Persistent bilateral interstitial opacities and trace pleural effusions.
[2025-03-08 05:46] LABS: Total Cells Counted 100.0 (100)
--- NOTE | 2025-03-08 13:33 | DVHPNRES ---
Progress Note Date Seen: Mar 08, 2025 Resident Creating Document: LYNETTE RUIZ RESIDENT Medical Necessity Reason Pt with a Central, PICC or Fol: Yes The following are medically ne: Central Line Subjective Review of Systems [place] is a 64-year-old male with PMHx significant for diabetes who came to the hospital with chief complaints of nausea, vomiting,for 2 days fever at home with T-max of 100.1 pulse sister before admission. He is status post CABG surgery performed on 02/13 in [place]. Also he had postop Afib . He reports poor oral intake and generalized weakness. He denies chest pain, shortness of breath, palpitations, syncope, abdominal pain, or diarrhea On arrival, he was noted to be tachycardic, with heart rate fluctuating from 80 to 140 bpm, but he remained in sinus tachycardia on telemetry and EKG. No episodes of atrial fibrillation were documented Past surgical history: CABG, cataract surgery family history: sister, father had heart disease. Social history: Patient denies smoking, drinking, drug use lives with: sister at home. 03/03/2025: Patient seen in the ICU. Patient today and yesterday had bradycardia. Is on Levo 1, today he does not complain of any nausea, vomiting, diarrhea. Patient had a bowel movement yesterday. Patient had a bowel movment today, is eating. He ia able to walk. 03/04/2025: Patient seen in ICU. Patient yesterday night had a episode of on sustained atrial flutter, and episodes of bradycardia ranging from 46-60. patient is on Levophed 2, 500 bolus NS was given. Patient is on room air, alert oriented and is able to eat and has had a bowel movement today. 03/05/2025: Patient seen in ICU. Patient has had a bowel movement. , eating well, no episodes of atrial flutter or bradycardia noted. Patient is on Levo to, 250 bolus was given. Patient is on room air. 03/06/2025: Patient seen in ICU. It had episode of atrial flutter for 1 hour. Blood pressure has dropped in Levophed was increased to 4 patient was started on amnio drip. Patient reported palpitations but no chest pain or shortness of breath. Patient is on room air, today given 250 mL bolus. Patient is able to eat and had 2 bowel movements yesterday. Cardiology following. 250 mL bolus given. 03/07/25 pt is currently on norepinephrine @ 2 mcg/min. not mentioning any other complaints given 500c bolus 03/08/2025: Patient seen in ICU. Patient had no overnight events. Patient is on levo 2. Amnio 1. Repeat echo done to see severity of pericardial effusion. Cardiology following. Patient is on room air, 250 mL bolus given today. Patient does not complain of any chest pain, shortness of breath, palpitations. Orthostatic vitals checked. Midodrine 5 mg t.i.d. added Objective vital signs Vital Sign Date Time Temp Pulse Resp B/P (MAP) Pulse Ox O2 Delivery O2 Flow Rate FiO2 03/08/25 09:38 83/39 03/08/25 08:00 73 03/08/25 08:00 17 97 Room Air* 0 21 03/08/25 04:00 97.7 97.7 Total Intake and Output 03/07/25 03/07/25 03/08/25 15:00 23:00 07:00 Intake Total 1508.28 ml 920.155 ml 613.30 ml Output Total 1150 ml 2000 ml Balance 1508.28 ml -229.845 ml -1386.70 ml medications Current Medications Medications Dose Ordered Sig/Danielle Route Start Time Stop Time Status Last Admin Dose Admin Aspirin 81 mg DAILY PO 03/01/25 10:00 03/08/25 10:44 81 MG Diagnostic Test (Pha) 1 strip ACHS 03/03/25 17:00 03/08/25 11:30 1 STRIP Insulin Human Regular HS SC 03/03/25 22:00 03/06/25 22:00 3 UNITS Insulin Human Regular AC SC 03/03/25 17:00 03/08/25 12:45 6 UNITS Dextrose 50 ml UD PRN IV 03/03/25 13:45 Norepinephrine Bitartrate 250 ml @ 1.875 mls/ hr Q24H IV 03/03/25 13:45 03/07/25 22:37 1.875 MLS/HR Apixaban 5 mg BID PO 03/03/25 22:00 03/08/25 10:44 5 MG Pantoprazole Sodium 40 mg DAILY@0600 PO 03/04/25 06:00 03/08/25 05:45 40 MG Piperacillin Sod/ Tazobactam Sod 100 ml @ 25 mls/hr Q8HR IV 03/05/25 14:00 03/08/25 05:51 25 MLS/HR Amiodarone HCl 250 ml @ 16.66 mls/ hr Q15H1M IV 03/06/25 10:45 03/08/25 06:00 16.66 MLS/HR Insulin Glargine 10 units HS SC 03/06/25 22:00 03/07/25 22:00 10 UNITS Examination Patient lying in bed, in no acute distress General: Patient alert and oriented in person, place and time. Patient following commands. HEENT: Normocephalic, atraumatic, moist mucous membranes Respiratory/pulmonary: Clear lungs bilaterally, vesicular murmurs present in almost all lung arnold, no associated crackles or wheezes. Cardiovascular: Normal heart sounds S1 and S2 with no associated murmurs, sternotomy scar present with sutures Abdomen: Abdomen nondistended, there is no pain to palpation in any of the abdominal quadrants, no palpable masses. Extremities: There is no peripheral edema present at the lower extremities. Peripheral Pulses: 3+ Radial (R). 3+ Radial (L). 3+ Dorsalis pedis (R). 3+ Dorsalis pedis(L) Skin: skin tear on sacrum Neurological: Intact cranial nerves with no focal neurologic deficits laboratory and microbiology Laboratory Tests 03/08/25 04:00 Test 03/08/25 04:00 Range/Units Serum Glucose 142 H 74-106 mg/dL Microbiology Date/Time Source Procedure Growth Status 03/01/25 17:16 Nose MRSA Screen - Final Complete 02/28/25 15:36 Blood Blood Culture - Final NO GROWTH AFTER 5 DAYS OF INCUBATION. Complete Problem List/Assessment/Plan Problem List/Assessment/Plan Neurology -alert, oriented x4 Cardiology Pericardial effusion Sinus tachycardia in the setting of sepsis/volume depletion/DKA Moderate to severe TR S/P CABG on aspirin and Eliquis at home Bradycardia PERICARDIOTOMY SYNDROME Hyperlipidemia - Echo shows EF >55%, moderate to severe TR, severe PH - continue aspirin, Lovenox - metoprolol held due to bradycardia - Midodrine 5 mg t.i.d. added Respiratory Severe pulmonary hypertension GI Septic shock likely due to gastroenteritis Transaminitis - monitor labs - IV Zosyn - CT scan showed Presumed postsurgical retrosternal fluid collection/ hematoma. Trace pericardial effusion. [id number] stool burden. No CT evidence of bowel obstruction. Endocrine Anion gap metabolic acidosis secondary to DKA Diabetic ketoacidosis Diabetes mellitus type 2 HbA1c 7.5 Leukopenia-sepsis related - anion gap closed - lactic acid resolved - IV fluids - moderate insulin sliding scale Renal/electrolytes Acute kidney injury superimposed on CKD Hyperkalemia Hypokalemia - resolved - hyperkalemia protocol Skin Skin tear on Sacrum - Barrier cream - wound consult Prophylaxis / Supportive Care DVT Prophylaxis: Eliquis GI Prophylaxis: Protonix. Goals of care discussed with the patient for more than 39 minutes: Full code state Critical time spent 83 mins. Plan discussed with Dr. Mendoza and RN Plan discussed with: Patient Dietary Evaluation Review Comments: Encourage and monitor PO intakes CCHO-60 Cardiac diet Offer Glucerna 240ml PO supplement BID for additional protein and energy Expected Outcomes/Goals: gradual wt gain LYNETTE RUIZ RESIDENT Mar 08, 2025 13:33
--- NOTE | 2025-03-08 13:41 | ECG ---
[facility] Test Date: 2025-03-06 Test Time: 03:20:19 Pat Name: LEEANN ASHRAF Department: ICU Room: 0223T Gender: M Nurse Plastics: RN : 1960 Requested By: LAN CAMACHO Order Number: [id number] Reading MD: Howard Bailey Measurements Intervals [place] Rate: 147 P: 0 KS: 0 QRS: 65 QRSD: 106 T: 234 QT: 333 QTc: 521 Interpretive Statements Atrial flutter with predominant 2:1 AV block Repol abnrm suggests ischemia, anterolateral Prolonged QT interval Electronically Signed On 03-10-2025 17:11:59 PST by Howard Bailey Please click the below link to view image of tracing.
--- NOTE | 2025-03-08 13:41 | ECG ---
[facility] Test Date: 2025-03-06 Test Time: 04:24:25 Pat Name: LEEANN ASHRAF Department: ICU Room: 0223T Gender: M Air Brake Adjuster: RN : 1960 Requested By: LAN CAMACHO Order Number: [id number] Reading MD: Howard Bailey Measurements Intervals [place] Rate: 157 P: 261 UT: 113 QRS: 61 QRSD: 83 T: 243 QT: 336 QTc: 544 Interpretive Statements Ectopic atrial tachycardia, unifocal Repolarization abnormality, prob rate related Prolonged QT interval Electronically Signed On 03-10-2025 17:12:27 PST by Howard Bailey Please click the below link to view image of tracing.
[2025-03-08] MEDS: MIDODRINE HCL 10 MG TAB PO SCH (18:52)
--- NOTE | 2025-03-08 20:43 | DVHSR ---
APPROVED REPORT EXAM: LIMITED Two-dimensional echocardiogram to assess pericardial effusion. Blood Pressure: 97/54 mmHg Surgery/Intervention CABG: DIMENSIONS LVDd 4.1 (3.8-5.7cm) LA (2D) (1.9-4.0cm) Aortic Root (2.0-3.7cm) LVDs 2.7 (2.5-4.0cm) LA (MM) (1.9-4.0cm) Aortic Cusp Exc (1.5-2.0cm) EF (%) 65.0 (55-70%) Rt. Atrium (1.9-4.0cm) Asc. Aorta cm IVSd 1.0 (0.7-1.1cm) RV (D) (1.8-2.4cm) PWd 0.9 (0.7-1.1cm) Mitral Valve Mitral Mitral Stenosis E/A ratio 0.0 2D MVA cm2 Other Information Quality : Limited Rhythm : Conclusion LV EF IS 55% AND IS LOW NORMAL GLOBAL ONE CM IN WIDTH PERICARDIAL EFFUSION IT IS MILD PERICARDIAL EFFUSION NORMAL VALVES NORMAL RV FUNCTION
[2025-03-09] VITALS (96 sets, daily range): BP systolic 85–123; BP diastolic 43–79; PULSE 64–87; RESP 9–21; TEMP 97.9–98.5; O2SAT 95–99
[2025-03-09 04:21] LABS: Hematocrit 31.7 % (41.0-53.0); Hemoglobin 10.6 g/dL (13.5-17.5); Mean Corpuscular Hemoglobin 30.5 pg (28.0-32.0); Mean Corpuscular Volume 91.2 fL (80.0-100.0)
[2025-03-09 04:43] LABS: Alanine Aminotransferase 30 U/L (7-40); Albumin 3.3 g/dL (3.2-4.8); Alkaline Phosphatase 101 U/L (46-116); Anion Gap 7 (5-15); BUN/Creatinine Ratio 12.0 (10.0-20.0); Bilirubin, Total 0.5 mg/dL (0.2-1.0); Blood Urea Nitrogen 9 mg/dL (9-23); Carbon Dioxide 28 mmol/L (20-31); Chloride 104 mmol/L (98-107); Potassium 4.1 mmol/L (3.5-5.1); Sodium 139 mmol/L (136-145)
[2025-03-09 05:01] LABS: Calcium 8.2 mg/dL (8.7-10.4); Glucose 114 mg/dL (74-106); Total Protein 5.6 g/dL (5.7-8.2)
[2025-03-09 05:34] LABS: Total Cells Counted 100.0 (100)
--- NOTE | 2025-03-09 13:24 | DVHPN2 ---
Progress Note - Dictate Date Seen: Mar 09, 2025 Medical Necessity Reason Pt with a Central, PICC or Fol: Yes The following are medically ne: Central Line Subjective PT WITH ORG HEART DZ S/P CABG NOW WITH SEPSIS MYELOSUPPRESSION FINALLY ABLE TO MOUNT A WBC RESPONSE vital signs Vital Sign Date Time Temp Pulse Resp B/P (MAP) Pulse Ox O2 Delivery O2 Flow Rate FiO2 03/09/25 09:00 80 16 122/66 (84) 98 03/09/25 08:00 Room Air* 0 21 03/09/25 04:30 97.9 97.9 Total Intake and Output 03/08/25 03/08/25 03/09/25 15:00 23:00 07:00 Intake Total 969.530 ml 1033.280 ml 449.280 ml Output Total 1450 ml 1200 ml Balance 969.530 ml -416.720 ml -750.720 ml medications Current Medications Medications Dose Ordered Sig/Danielle Route Start Time Stop Time Status Last Admin Dose Admin Aspirin 81 mg DAILY PO 03/01/25 10:00 03/09/25 09:32 81 MG Diagnostic Test (Pha) 1 strip ACHS 03/03/25 17:00 03/09/25 11:35 1 STRIP Insulin Human Regular HS SC 03/03/25 22:00 03/08/25 22:26 4 UNITS Insulin Human Regular AC SC 03/03/25 17:00 03/09/25 11:36 9 UNITS Dextrose 50 ml UD PRN IV 03/03/25 13:45 Norepinephrine Bitartrate 250 ml @ 1.875 mls/ hr Q24H IV 03/03/25 13:45 03/07/25 22:37 1.875 MLS/HR Apixaban 5 mg BID PO 03/03/25 22:00 03/09/25 09:32 5 MG Pantoprazole Sodium 40 mg DAILY@0600 PO 03/04/25 06:00 03/09/25 06:18 40 MG Piperacillin Sod/ Tazobactam Sod 100 ml @ 25 mls/hr Q8HR IV 03/05/25 14:00 03/09/25 06:18 25 MLS/HR Amiodarone HCl 250 ml @ 16.66 mls/ hr Q15H1M IV 03/06/25 10:45 03/09/25 11:34 16.66 MLS/HR Insulin Glargine 10 units HS SC 03/06/25 22:00 03/08/25 22:22 10 UNITS Midodrine 5 mg TID@0600,1200,1800 PO 03/08/25 18:00 03/09/25 11:51 5 MG laboratory and microbiology Laboratory Tests 03/09/25 03:50 Test 03/09/25 03:50 Range/Units Serum Glucose 114 H 74-106 mg/dL Problem List N/V ABD PAIN SINUS TACHYCARDIA SECONDARY TO VOLUME DEPLETION HYPERKALEMIA MOST LIKELY SECONDARY TO ACIDOSIS METABOLIC ACIDOSIS LEUKOPENIA CONSISTENT WITH SEPSIS PMH ORGANIC HD CAD S/P CABY X1 SMALL PERICARDIAL EFFUSION POST OP PERICARDIOTOMY SYNDROME S/P POST OP AFIB/ RESOLVED HYPERLIPIDEMIA DIABETES VASCULOPATHY NEPHROPATHY R/O TYPE IV RTA WITH HYPERKALEMIA PAH SEVERE TR Assessment/Plan METABOLIC SUPPORT IV FLUID CORRET ACIDOSIS CORRECT HYPERKALEMIA LOKELMA ABX CONT SUPPORTIVE CARE HYPERKALEMIA CORRECTED LYTES WNL LEUKOCYTOSIS RESOLVED CXR RETROCARDIAC INFILTRATE SEVERE PAH START REVATIO OR ADCIRCA REPEAT ECHO TO REASSESS PUL PRESSURE R/O PE/ CT NEGATIVE Dietary Evaluation Review Comments: Encourage and monitor PO intakes CCHO-60 Cardiac diet Offer Glucerna 240ml PO supplement BID for additional protein and energy Expected Outcomes/Goals: gradual wt gain Plan discussed with: Patient Critical Care Time(min): 35 MARTHA FRY MD Mar 09, 2025 13:24
--- NOTE | 2025-03-09 18:47 | DVHPNRES ---
Progress Note Date Seen: Mar 09, 2025 Resident Creating Document: KALI COOK RESIDENT Has the PT tested + for MRSA If YES, has PT been informed?: No Medical Necessity Reason Pt with a Central, PICC or Fol: Yes The following are medically ne: Central Line Subjective Review of Systems Ph[place] is a 64-year-old male with PMHx significant for diabetes who came to the hospital with chief complaints of nausea, vomiting,for 2 days fever at home with T-max of 100.1 pulse sister before admission. He is status post CABG surgery performed on 02/13 in [place]. Also he had postop Afib . He reports poor oral intake and generalized weakness. He denies chest pain, shortness of breath, palpitations, syncope, abdominal pain, or diarrhea On arrival, he was noted to be tachycardic, with heart rate fluctuating from 80 to 140 bpm, but he remained in sinus tachycardia on telemetry and EKG. No episodes of atrial fibrillation were documented Past surgical history: CABG, cataract surgery family history: sister, father had heart disease. Social history: Patient denies smoking, drinking, drug use lives with: sister at home. 03/03/2025: Patient seen in the ICU. Patient today and yesterday had bradycardia. Is on Levo 1, today he does not complain of any nausea, vomiting, diarrhea. Patient had a bowel movement yesterday. Patient had a bowel movment today, is eating. He ia able to walk. 03/04/2025: Patient seen in ICU. Patient yesterday night had a episode of on sustained atrial flutter, and episodes of bradycardia ranging from 46-60. patient is on Levophed 2, 500 bolus NS was given. Patient is on room air, alert oriented and is able to eat and has had a bowel movement today. 03/05/2025: Patient seen in ICU. Patient has had a bowel movement. , eating well, no episodes of atrial flutter or bradycardia noted. Patient is on Levo to, 250 bolus was given. Patient is on room air. 03/06/2025: Patient seen in ICU. It had episode of atrial flutter for 1 hour. Blood pressure has dropped in Levophed was increased to 4 patient was started on amnio drip. Patient reported palpitations but no chest pain or shortness of breath. Patient is on room air, today given 250 mL bolus. Patient is able to eat and had 2 bowel movements yesterday. Cardiology following. 250 mL bolus given. 03/07/25 pt is currently on norepinephrine @ 2 mcg/min. not mentioning any other complaints given 500c bolus 03/08/2025: Patient seen in ICU. Patient had no overnight events. Patient is on levo 2. Amnio 1. Repeat echo done to see severity of pericardial effusion. Cardiology following. Patient is on room air, 250 mL bolus given today. Patient does not complain of any chest pain, shortness of breath, palpitations. Orthostatic vitals checked. Midodrine 5 mg t.i.d. added 03/09/25 The patient is seen and examined at bedside this morning. He is awake, alert, oriented 4, conversing appropriately, ambulatory to bedside commode with assistance. No acute distress noted. RN report indicates axox4, ambulating to bedside commode, communicating , incisions intact, and running sinus rhythm. He denies chest pain, palpitations, dyspnea, cough, dizziness, nausea, vomiting, abdominal pain, or leg swelling.?Breathing comfortably on room air, respiratory rate 1216, SpO? 9799%. CABG sternotomy incision and graft harvest sites are clean, dry, intact without erythema or drainage. He continues to use bedside commode and urinal, voiding adequately.No dysuria or urinary discomfort. Diet: Consistent carb-60 diabetic, low sodium, cardiac diet, Glucerna 240 mL PO BID. Tolerating well without GI symptoms. Right IJ central line placed 03/01 remains in situ with CVP 34 mmHg. Plan remains to remove RIJ tomorrow pending stable hemodynamics. No fever or chills.No neurological complaints. Imaging CXR (03/08/25): * Right IJ unchanged * Persistent bilateral interstitial opacities * Trace pleural effusions * No pneumothorax * No acute change Echo (03/08/25): * EF 55% low-normal * Mild global pericardial effusion (~1 cm) * Normal valves * Normal RV function General: No fever, chills, fatigue stable Neuro: No confusion, headache, or focal deficits. Cardiac: No chest pain, palpitations. Resp: No dyspnea, wheezing. GI: No N/V, abdominal pain. : No dysuria. MSK: Mild incisional soreness only. Skin: Sacral tear noted; incisions intact. Objective vital signs Vital Sign Date Time Temp Pulse Resp B/P (MAP) Pulse Ox O2 Delivery O2 Flow Rate FiO2 03/09/25 18:30 78 13 112/62 (79) 97 03/09/25 18:00 Room Air* 0 21 03/09/25 16:15 98.5 98.5 Total Intake and Output 03/08/25 03/08/25 03/09/25 15:00 23:00 07:00 Intake Total 969.530 ml 1033.280 ml 449.280 ml Output Total 1450 ml 1200 ml Balance 969.530 ml -416.720 ml -750.720 ml medications Current Medications Medications Dose Ordered Sig/Danielle Route Start Time Stop Time Status Last Admin Dose Admin Aspirin 81 mg DAILY PO 03/01/25 10:00 03/09/25 09:32 81 MG Diagnostic Test (Pha) 1 strip ACHS 03/03/25 17:00 03/09/25 16:43 1 STRIP Insulin Human Regular HS SC 03/03/25 22:00 03/08/25 22:26 4 UNITS Insulin Human Regular AC SC 03/03/25 17:00 03/09/25 16:44 6 UNITS Dextrose 50 ml UD PRN IV 03/03/25 13:45 Norepinephrine Bitartrate 250 ml @ 1.875 mls/ hr Q24H IV 03/03/25 13:45 03/07/25 22:37 1.875 MLS/HR Apixaban 5 mg BID PO 03/03/25 22:00 03/09/25 09:32 5 MG Pantoprazole Sodium 40 mg DAILY@0600 PO 03/04/25 06:00 03/09/25 06:18 40 MG Piperacillin Sod/ Tazobactam Sod 100 ml @ 25 mls/hr Q8HR IV 03/05/25 14:00 03/09/25 16:29 25 MLS/HR Amiodarone HCl 250 ml @ 16.66 mls/ hr Q15H1M IV 03/06/25 10:45 03/09/25 11:34 16.66 MLS/HR Insulin Glargine 10 units HS SC 03/06/25 22:00 03/08/25 22:22 10 UNITS Midodrine 5 mg TID@0600,1200,1800 PO 03/08/25 18:00 03/09/25 18:15 5 MG Examination Patient lying in bed, in no acute distress General: Patient alert and oriented in person, place and time. Patient following commands. HEENT: Normocephalic, atraumatic, moist mucous membranes Respiratory/pulmonary: Clear lungs bilaterally, vesicular murmurs present in almost all lung arnold, no associated crackles or wheezes. Cardiovascular: Normal heart sounds S1 and S2 with no associated murmurs, sternotomy scar present with sutures Abdomen: Abdomen nondistended, there is no pain to palpation in any of the abdominal quadrants, no palpable masses. Extremities: There is no peripheral edema present at the lower extremities. Peripheral Pulses: 3+ Radial (R). 3+ Radial (L). 3+ Dorsalis pedis (R). 3+ Dorsalis pedis(L) Skin: skin tear on sacrum Neurological: Intact cranial nerves with no focal neurologic deficits laboratory and microbiology Laboratory Tests 03/09/25 03:50 Test 03/09/25 03:50 Range/Units Serum Glucose 114 H 74-106 mg/dL Microbiology Date/Time Source Procedure Growth Status 03/01/25 17:16 Nose MRSA Screen - Final Complete 02/28/25 15:36 Blood Blood Culture - Final NO GROWTH AFTER 5 DAYS OF INCUBATION. Complete Problem List/Assessment/Plan Problem List/Assessment/Plan ASSESSMENT & PLAN ([facility]) NEUROLOGY Assessment * Awake, alert, oriented 4 * No delirium * No focal deficits Plan * Continue neuro checks * Avoid sedatives * Tylenol PRN for incisional pain * PT/OT to evaluate and ambulate CARDIOVASCULAR Problems Coronary artery disease s/p CABG active post-operative management 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 rule out tamponade (none clinically) pulmonary hypertension (severe) Sinus tachycardia in the setting of sepsis/volume depletion/DKA Moderate to severe TR S/P CABG on aspirin and Eliquis at home Bradycardia Hyperlipidemia a flutter Plan * Continue aspirin 81 mg daily * Continue amiodarone IV infusion today; await callback for transition to PO from cardiology * Continue apixaban 5 mg BID * Continue midodrine TID * Telemetry monitoring * Monitor for tamponade (none clinically) * Repeat echocardiogram if symptomatic * Remove RIJ tomorrow AM RESPIRATORY Assessment Trace pleural effusions and postoperative pulmonary congestion * Breathing comfortably on room air * SpO? 9799% * CXR: persistent interstitial opacities & trace effusions Plan * Incentive spirometry q12 hrs * Encourage ambulation * Monitor for worsening effusions * PRN nebulizers only if needed GASTROINTESTINAL Assessment Septic shock likely due to gastroenteritis Transaminitis * Tolerating diet * No nausea/vomiting * Albumin low 3.3 Plan * Continue cardiac/diabetic + low sodium + consistent carb-60 * Glucerna BID * Protonix 40 mg daily (GI prophylaxis) * Bowel regimen: senna + docusate RENAL / ELECTROLYTES Assessment Renal/electrolytes Acute kidney injury superimposed on CKD Hyperkalemia Hypokalemia - resolved - hyperkalemia protocol * Cr 0.75 (normal) * Electrolytes stable * Prior hyperkalemia/hypokalemia resolved Plan * BMP daily * Monitor urine output * Avoid nephrotoxins ENDOCRINE Assessment Anion gap metabolic acidosis secondary to DKA Diabetic ketoacidosis Diabetes mellitus type 2 HbA1c 7.5 Leukopenia-sepsis related * T2DM * Hyperglycemia: 224 - 137 - 259 - 228 - anion gap closed - lactic acid resolved Plan * Continue Lantus 10 units HS * Continue insulin regular AC + HS scale * Target glucose 357167 * Trend POC glucose ACHS INFECTIOUS DISEASE Assessment Septic shock likely due to gastroenteritis * No fever * WBC normal * MRSA negative * Blood cultures negative * Incisions clean Plan * Continue Zosyn IV q8h per current orders * Continue to monitor for infection signs * Wound care for sacral area HEMATOLOGY Assessment * Mild postoperative anemia: Hgb 10.6 * Platelets normal Plan * CBC daily * Transfuse only if Hgb <7 or symptomatic SKIN / WOUND CARE Assessment * Skin tear on sacrum * No drainage or infection Plan * Continue barrier cream * Wound care consult (already placed) * Frequent repositioning every 2 hrs DVT PROPHYLAXIS * Apixaban 5 mg BID (therapeutic) GI PROPHYLAXIS * Protonix 40 mg PO daily LINES / TUBES * RIJ CVC placed on 03/01/25 .Remove tomorrow * No Law * No arterial line NUTRITION * Continue cardiac/low sodium/consistent carb diet * Glucerna BID * Monitor daily intake PT/OT * Continue daily evaluation * Ambulate with assistance CODE STATUS Full Code Discussed with patient >20 minutes. Patient understands and agrees. CRITICAL CARE TIME 63 minutes spent in critical care evaluation, excluding procedures. ATTENDING & FAMILY DISCUSSION Family updated at bedside.Plan discussed with Dr. Peraza. Case discussed in detail with the attending physician, including the clinical presentation, diagnostic workup, and comprehensive management plan. The patient was present for the discussion and demonstrated understanding of his condition and the proposed plan. Plan discussed with: Patient Dietary Evaluation Review Comments: Encourage and monitor PO intakes CCHO-60 Cardiac diet Offer Glucerna 240ml PO supplement BID for additional protein and energy Expected Outcomes/Goals: gradual wt gain Date of Service: Mar 09, 2025 Billing Provider: LAURIE PERAZA MD Common Visit Codes: [id number] CARE 30-74 MIN KALI COOK RESIDENT Mar 09, 2025 18:47 LAURIE PERAZA MD Mar 10, 2025 11:58
[2025-03-10] VITALS (58 sets, daily range): BP systolic 87–112; BP diastolic 42–64; PULSE 66–89; RESP 9–22; TEMP 98–99; O2SAT 94–99
--- NOTE | 2025-03-10 03:08 | DVH ---
MEDICAL RECORDS NUMBER: [id number] PROCEDURE: XY CHEST XRAY 1 VIEW DATE: 03/10/2025 02:36 AM HISTORY: EVALUATE FOR PERICARDIAL EFFUSION Views:1 COMPARISON: XY CHEST PORTABLE on DOS: 03/08/25, XY CHEST XRAY 1 VIEW on DOS: 03/07/25, XY CHEST XRAY 1 VIEW on DOS: 03/06/25, XY CHEST XRAY 1 VIEW on DOS: 03/05/25, XY CHEST PORTABLE on DOS: 03/01/25 FINDINGS/IMPRESSION: Lungs: The lungs are clear. Mediastinum: Mediastinal structures appear unremarkable.A right-sided central line is seen. The tip projects over the superior vena cava. No pneumothorax is seen.. Skeletal: The skeletal structures appear unremarkable.
[2025-03-10 04:33] LABS: Hematocrit 30.7 % (41.0-53.0); Hemoglobin 10.3 g/dL (13.5-17.5); Mean Corpuscular Hemoglobin 30.9 pg (28.0-32.0); Mean Corpuscular Volume 92.3 fL (80.0-100.0)
[2025-03-10 04:54] LABS: Alanine Aminotransferase 30 U/L (7-40); Albumin 3.2 g/dL (3.2-4.8); Alkaline Phosphatase 97 U/L (46-116); Anion Gap 8 (5-15); BUN/Creatinine Ratio 15.3 (10.0-20.0); Blood Urea Nitrogen 11 mg/dL (9-23); Carbon Dioxide 27 mmol/L (20-31); Chloride 101 mmol/L (98-107); Magnesium 2.0 mg/dL (1.6-2.6); Potassium 4.1 mmol/L (3.5-5.1); Sodium 136 mmol/L (136-145)
[2025-03-10 04:55] LABS: Bilirubin, Total 0.4 mg/dL (0.2-1.0)
[2025-03-10 04:58] LABS: Calcium 8.3 mg/dL (8.7-10.4); Glucose 153 mg/dL (74-106); Total Protein 5.5 g/dL (5.7-8.2)
[2025-03-10 05:31] LABS: Total Cells Counted 100.0 (100)
--- NOTE | 2025-03-10 08:55 | MEDREC ---
[facility] Intervention Section I [facility] Intervention: Deescalate AB based on CS Additional Comments Additional Comments Suggest discontinuing antibiotic treatment. Microbiology has resulted all samples as negative (no stool culture ordered), pt is afebrile, WBC within normal limits. Pt no longer complaining of GI symptoms. ERICK THIBODEAUX PHARMACIST Mar 10, 2025 08:55
--- NOTE | 2025-03-10 11:15 | DVHPNRES ---
Progress Note Date Seen: Mar 10, 2025 Resident Creating Document: KALI COOK RESIDENT Has the PT tested + for MRSA If YES, has PT been informed?: No Medical Necessity Reason Pt with a Central, PICC or Fol: Yes The following are medically ne: Central Line Subjective Review of Systems [place] is a 64-year-old male with PMHx significant for diabetes who came to the hospital with chief complaints of nausea, vomiting,for 2 days fever at home with T-max of 100.1 pulse sister before admission. He is status post CABG surgery performed on 02/13 in [place]. Also he had postop Afib . He reports poor oral intake and generalized weakness. He denies chest pain, shortness of breath, palpitations, syncope, abdominal pain, or diarrhea On arrival, he was noted to be tachycardic, with heart rate fluctuating from 80 to 140 bpm, but he remained in sinus tachycardia on telemetry and EKG. No episodes of atrial fibrillation were documented Past surgical history: CABG, cataract surgery family history: sister, father had heart disease. Social history: Patient denies smoking, drinking, drug use lives with: sister at home. 03/03/2025: Patient seen in the ICU. Patient today and yesterday had bradycardia. Is on Levo 1, today he does not complain of any nausea, vomiting, diarrhea. Patient had a bowel movement yesterday. Patient had a bowel movment today, is eating. He ia able to walk. 03/04/2025: Patient seen in ICU. Patient yesterday night had a episode of on sustained atrial flutter, and episodes of bradycardia ranging from 46-60. patient is on Levophed 2, 500 bolus NS was given. Patient is on room air, alert oriented and is able to eat and has had a bowel movement today. 03/05/2025: Patient seen in ICU. Patient has had a bowel movement. , eating well, no episodes of atrial flutter or bradycardia noted. Patient is on Levo to, 250 bolus was given. Patient is on room air. 03/06/2025: Patient seen in ICU. It had episode of atrial flutter for 1 hour. Blood pressure has dropped in Levophed was increased to 4 patient was started on amnio drip. Patient reported palpitations but no chest pain or shortness of breath. Patient is on room air, today given 250 mL bolus. Patient is able to eat and had 2 bowel movements yesterday. Cardiology following. 250 mL bolus given. 03/07/25 pt is currently on norepinephrine @ 2 mcg/min. not mentioning any other complaints given 500c bolus 03/08/2025: Patient seen in ICU. Patient had no overnight events. Patient is on levo 2. Amnio 1. Repeat echo done to see severity of pericardial effusion. Cardiology following. Patient is on room air, 250 mL bolus given today. Patient does not complain of any chest pain, shortness of breath, palpitations. Orthostatic vitals checked. Midodrine 5 mg t.i.d. added 03/09/25 The patient is seen and examined at bedside this morning. He is awake, alert, oriented 4, conversing appropriately, ambulatory to bedside commode with assistance. No acute distress noted. RN report indicates axox4, ambulating to bedside commode, communicating , incisions intact, and running sinus rhythm. He denies chest pain, palpitations, dyspnea, cough, dizziness, nausea, vomiting, abdominal pain, or leg swelling.?Breathing comfortably on room air, respiratory rate 1216, SpO? 9799%. CABG sternotomy incision and graft harvest sites are clean, dry, intact without erythema or drainage. He continues to use bedside commode and urinal, voiding adequately.No dysuria or urinary discomfort. Diet: Consistent carb-60 diabetic, low sodium, cardiac diet, Glucerna 240 mL PO BID. Tolerating well without GI symptoms. Right IJ central line placed 03/01 remains in situ with CVP 34 mmHg. Plan remains to remove RIJ tomorrow pending stable hemodynamics. No fever or chills.No neurological complaints. Imaging CXR (03/08/25): * Right IJ unchanged * Persistent bilateral interstitial opacities * Trace pleural effusions * No pneumothorax * No acute change Echo (03/08/25): * EF 55% low-normal * Mild global pericardial effusion (~1 cm) * Normal valves * Normal RV function 03/10/25 The patient was evaluated at the bedside today. He is awake, alert, oriented 4, cooperative, and in no acute distress. He denies chest pain, shortness of breath, palpitations, dizziness, or syncope. Appetite stable. Tolerating cardiac/consistent carbohydrate/low-sodium diet and Glucerna BID. The patient is being downgraded from ICU to TELI following improvement in hemodynamics and respiratory stability. Reports no nausea, vomiting, diarrhea. Had one bowel movement today. Denies urinary symptoms. He is ambulating with assistance to the bedside commode, remains hemodynamically soft but stable. Incisional pain is minimal and well-controlled. Right IJ triple-lumen CVC placed on 03/01 was removed today (03/10/2025) with hemostasis achieved and no complications. Dressing intact. Norepinephrine drip was discontinued yesterday at approximately 1500 hrs. BP remains soft but responsive to midodrine 5 mg TID. No fever, chills, or infectious symptoms. Primary Maltese speaking but communicates clearly in Turkish. Summary of Todays Clinical Course * Chest X-ray today: Lungs clear, mediastinum unremarkable, RIJ tip in SVC * Echo EF 55% (low-normal), trace pericardial effusion stable * CT Pulmonary Angiogram (03/05): No PE * CT Abdomen/Pelvis (02/28): post-surgical retrosternal hematoma, trace pericardial effusion, stool burden * Skin tear on sacrum treated with barrier cream; wound consult active * PT consulted for ambulation * Zosyn discontinued today per plan Midodrine was discontinued today Current Medications (TODAY) * Insulin Glargine (Lantus) 10 units HS * Insulin Regular sliding scale AC/HS * Amiodarone drip (running; transitioning to PO pending cardiology) * Pantoprazole 40 mg PO daily * Eliquis 5 mg PO BID * Aspirin 81 mg PO daily * Norepinephrine drip discontinued yesterday 3 PM * Zosyn discontinued today * Atorvastatin 40 mg resumed Held home medications due to contraindications: * Metoprolol (prior bradycardia) * Clopidogrel (not indicated currently) * Farxiga, losartan, metformin, glipizide, ibuprofen held inpatient General: No fever, chills, fatigue stable Neuro: No confusion, headache, or focal deficits. Cardiac: No chest pain, palpitations. Resp: No dyspnea, wheezing. GI: No N/V, abdominal pain. : No dysuria. MSK: Mild incisional soreness only. Skin: Sacral tear noted; incisions intact. Objective vital signs Vital Sign Date Time Temp Pulse Resp B/P (MAP) Pulse Ox O2 Delivery O2 Flow Rate FiO2 03/10/25 10:00 16 98 Room Air* 0 21 03/10/25 09:15 83 112/54 (73) 03/10/25 08:00 98.1 98.1 Total Intake and Output 03/09/25 03/09/25 03/10/25 15:00 23:00 07:00 Intake Total 336.655 ml 968.905 ml 616.62 ml Output Total 1000 ml 1250 ml Balance 336.655 ml -31.095 ml -633.38 ml medications Current Medications Medications Dose Ordered Sig/Danielle Route Start Time Stop Time Status Last Admin Dose Admin Aspirin 81 mg DAILY PO 03/01/25 10:00 03/10/25 10:40 81 MG Diagnostic Test (Pha) 1 strip ACHS 03/03/25 17:00 03/10/25 06:36 1 STRIP Insulin Human Regular HS SC 03/03/25 22:00 03/09/25 22:30 4 UNITS Insulin Human Regular AC SC 03/03/25 17:00 03/10/25 06:36 2 UNITS Dextrose 50 ml UD PRN IV 03/03/25 13:45 Norepinephrine Bitartrate 250 ml @ 1.875 mls/ hr Q24H IV 03/03/25 13:45 03/07/25 22:37 1.875 MLS/HR Apixaban 5 mg BID PO 03/03/25 22:00 03/10/25 10:40 5 MG Pantoprazole Sodium 40 mg DAILY@0600 PO 03/04/25 06:00 03/10/25 05:24 40 MG Piperacillin Sod/ Tazobactam Sod 100 ml @ 25 mls/hr Q8HR IV 03/05/25 14:00 03/10/25 05:31 25 MLS/HR Amiodarone HCl 250 ml @ 16.66 mls/ hr Q15H1M IV 03/06/25 10:45 03/10/25 02:09 16.66 MLS/HR Insulin Glargine 10 units HS SC 03/06/25 22:00 03/09/25 22:00 10 UNITS Midodrine 5 mg TID@0600,1200,1800 PO 03/08/25 18:00 03/10/25 05:25 5 MG Examination Patient lying in bed, in no acute distress General: Patient alert and oriented in person, place and time. Patient following commands. HEENT: Normocephalic, atraumatic, moist mucous membranes Respiratory/pulmonary: Clear lungs bilaterally, vesicular murmurs present in almost all lung arnold, no associated crackles or wheezes. Cardiovascular: Normal heart sounds S1 and S2 with no associated murmurs, sternotomy scar present with sutures Abdomen: Abdomen nondistended, there is no pain to palpation in any of the abdominal quadrants, no palpable masses. Extremities: There is no peripheral edema present at the lower extremities. Peripheral Pulses: 3+ Radial (R). 3+ Radial (L). 3+ Dorsalis pedis (R). 3+ Dorsalis pedis(L) Skin: skin tear on sacrum Neurological: Intact cranial nerves with no focal neurologic deficits laboratory and microbiology Laboratory Tests 03/10/25 03:40 Test 03/10/25 03:40 Range/Units Serum Glucose 153 H 74-106 mg/dL Microbiology Date/Time Source Procedure Growth Status 03/01/25 17:16 Nose MRSA Screen - Final Complete 02/28/25 15:36 Blood Blood Culture - Final NO GROWTH AFTER 5 DAYS OF INCUBATION. 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 rule out tamponade (none clinically) pulmonary hypertension (severe) Sinus tachycardia in the setting of sepsis/volume depletion/DKA Moderate to severe TR S/P CABG on aspirin and Eliquis at home ,Atrial Flutter,Bradycardia Hyperlipidemia Soft BP episodes; MAP <60 3 today Off vasopressors since yesterday (norepinephrine stopped 15:00) * Midodrine discontinued today Sinus rhythm Amiodarone drip running Mild postoperative anemia Trace pericardial effusion (stable) Plan * Continue aspirin 81 mg daily * Continue amiodarone IV infusion today; await callback for transition to PO from cardiology * Continue apixaban 5 mg BID * Telemetry monitoring * Monitor for tamponade (none clinically) * Repeat echocardiogram if symptomatic * Continue atorvastatin 40 mg * Hold metoprolol due to past bradycardia * Cardiology consult to transition amiodarone drip - PO * Monitor MAP; goal >65 RESPIRATORY Assessment Trace pleural effusions and postoperative pulmonary congestion * Breathing comfortably on room air * SpO2 9799% * CXR: persistent interstitial opacities & trace effusions Plan * Incentive spirometry q12 hrs * Encourage ambulation * Monitor for worsening effusions * PRN nebulizers only if needed GASTROINTESTINAL Assessment Septic shock likely due to gastroenteritis resolving Transaminitis * Tolerating diet * No nausea/vomiting * Albumin low 3.3 Plan * Continue cardiac/diabetic + low sodium + consistent carb-60 * Glucerna BID * Protonix 40 mg daily (GI prophylaxis) * Bowel regimen: senna + docusate RENAL / ELECTROLYTES Assessment Renal/electrolytes Acute kidney injury superimposed on CKD Hyperkalemia Hypokalemia - resolved - hyperkalemia protocol * Cr 0.75 (normal) * Electrolytes stable * Prior hyperkalemia/hypokalemia resolved Plan * BMP daily * Monitor urine output * Avoid nephrotoxins ENDOCRINE Assessment Anion gap metabolic acidosis secondary to DKA Diabetic ketoacidosis Diabetes mellitus type 2 HbA1c 7.5 Leukopenia-sepsis related * T2DM * Hyperglycemia: 224 - 137 - 259 - 228 - anion gap closed - lactic acid resolved Plan * Continue Lantus 10 units HS * Continue insulin regular AC + HS scale * Target glucose [id number] * Trend POC glucose ACHS INFECTIOUS DISEASE Assessment Septic shock likely due to gastroenteritis * No fever * WBC normal * MRSA negative * Blood cultures negative * Incisions clean Plan * Zosyn discontinued today * Continue wound monitoring * Continue to monitor for infection signs * Wound care for sacral area HEMATOLOGY Assessment * Mild postoperative anemia: Hgb 10.6 * Platelets normal Plan * CBC daily * Transfuse only if Hgb <7 or symptomatic SKIN / WOUND CARE Assessment * Skin tear on sacrum * No drainage or infection Plan * Continue barrier cream * Wound care consult (already placed) * Frequent repositioning every 2 hrs DVT PROPHYLAXIS * Apixaban 5 mg BID (therapeutic) GI PROPHYLAXIS * Protonix 40 mg PO daily LINES / TUBES * RIJ CVC placed on 03/01/25 .* RIJ CVC removed today (03/10/2025) * No Law * No arterial line NUTRITION * Continue cardiac/low sodium/consistent carb diet * Glucerna BID * Monitor daily intake PT/OT * Continue daily evaluation * Ambulate with assistance CODE STATUS Full Code Discussed with patient >20 minutes. Patient understands and agrees. CRITICAL CARE TIME 54 minutes spent in critical care evaluation, excluding procedures. ATTENDING & FAMILY DISCUSSION Family updated at bedside.Plan discussed with Dr. Peraza. Case discussed in detail with the attending physician, including the clinical presentation, diagnostic workup, and comprehensive management plan. The patient was present for the discussion and demonstrated understanding of his condition and the proposed plan. Plan discussed with: Patient My Orders My Orders Orders - KALI COOK Procedure Category Date Status Time Communication Order ORDERS 03/09/25 Transmitted 18:47 Chest Xray 1 View XY 03/10/25 Resulted 04:00 Pt Request For Service PT 03/10/25 Logged 04:00 Incentive Spirometry ORDERS 03/10/25 Transmitted 04:00 D/C Triple Lumen ORDERS 03/10/25 Transmitted 10:29 Dietary Evaluation Review Comments: Encourage and monitor PO intakes CCHO-60 Cardiac diet Offer Glucerna 240ml PO supplement BID for additional protein and energy Expected Outcomes/Goals: gradual wt gain Date of Service: Mar 10, 2025 Billing Provider: LAURIE PERAZA MD Common Visit Codes: [id number] CARE 30-74 MIN KALI COOK RESIDENT Mar 10, 2025 11:15 LAURIE PERAZA MD Mar 11, 2025 15:15
--- NOTE | 2025-03-10 14:21 | DVHPN2 ---
Progress Note - Dictate Date Seen: Mar 10, 2025 Has the PT tested + for MRSA If YES, has PT been informed?: No Medical Necessity Reason Pt with a Central, PICC or Fol: Yes The following are medically ne: Central Line Subjective PT WITH ORG HEART DZ S/P CABG NOW WITH SEPSIS MYELOSUPPRESSION FINALLY ABLE TO MOUNT A WBC RESPONSE vital signs Vital Sign Date Time Temp Pulse Resp B/P (MAP) Pulse Ox O2 Delivery O2 Flow Rate FiO2 03/10/25 13:15 74 14 97 03/10/25 12:00 Room Air* 0 21 03/10/25 12:00 98.1 98.1 Total Intake and Output 03/09/25 03/09/25 03/10/25 15:00 23:00 07:00 Intake Total 336.655 ml 968.905 ml 616.62 ml Output Total 1000 ml 1250 ml Balance 336.655 ml -31.095 ml -633.38 ml medications Current Medications Medications Dose Ordered Sig/Danielle Route Start Time Stop Time Status Last Admin Dose Admin Aspirin 81 mg DAILY PO 03/01/25 10:00 03/10/25 10:40 81 MG Diagnostic Test (Pha) 1 strip ACHS 03/03/25 17:00 03/10/25 12:31 1 STRIP Insulin Human Regular HS SC 03/03/25 22:00 03/09/25 22:30 4 UNITS Insulin Human Regular AC SC 03/03/25 17:00 03/10/25 12:33 6 UNITS Dextrose 50 ml UD PRN IV 03/03/25 13:45 Norepinephrine Bitartrate 250 ml @ 1.875 mls/ hr Q24H IV 03/03/25 13:45 03/07/25 22:37 1.875 MLS/HR Apixaban 5 mg BID PO 03/03/25 22:00 03/10/25 10:40 5 MG Pantoprazole Sodium 40 mg DAILY@0600 PO 03/04/25 06:00 03/10/25 05:24 40 MG Amiodarone HCl 250 ml @ 16.66 mls/ hr Q15H1M IV 03/06/25 10:45 03/10/25 02:09 16.66 MLS/HR Insulin Glargine 10 units HS SC 03/06/25 22:00 03/09/25 22:00 10 UNITS laboratory and microbiology Laboratory Tests 03/10/25 03:40 Test 03/10/25 03:40 Range/Units Serum Glucose 153 H 74-106 mg/dL Problem List N/V ABD PAIN SINUS TACHYCARDIA SECONDARY TO VOLUME DEPLETION HYPERKALEMIA MOST LIKELY SECONDARY TO ACIDOSIS METABOLIC ACIDOSIS LEUKOPENIA CONSISTENT WITH SEPSIS PMH ORGANIC HD CAD S/P CABY X1 SMALL PERICARDIAL EFFUSION POST OP PERICARDIOTOMY SYNDROME S/P POST OP AFIB/ RESOLVED HYPERLIPIDEMIA DIABETES VASCULOPATHY NEPHROPATHY R/O TYPE IV RTA WITH HYPERKALEMIA PAH SEVERE TR Assessment/Plan METABOLIC SUPPORT IV FLUID CORRET ACIDOSIS CORRECT HYPERKALEMIA LOKELMA ABX CONT SUPPORTIVE CARE HYPERKALEMIA CORRECTED LYTES WNL LEUKOCYTOSIS RESOLVED CXR RETROCARDIAC INFILTRATE SEVERE PAH/ SEVERE TR START REVATIO OR ADCIRCA REPEAT ECHO TO REASSESS PUL PRESSURE R/O PE/ CT NEGATIVE Dietary Evaluation Review Comments: Encourage and monitor PO intakes CCHO-60 Cardiac diet Offer Glucerna 240ml PO supplement BID for additional protein and energy Expected Outcomes/Goals: gradual wt gain Critical Care Time(min): 35 MARTHA FRY MD Mar 10, 2025 14:21
[2025-03-11] VITALS (9 sets, daily range): BP systolic 96–116; BP diastolic 56–68; PULSE 82–91; RESP 16–19; TEMP 97.7–98.3; O2SAT 96–98
[2025-03-11 07:06] LABS: Hematocrit 31.5 % (41.0-53.0); Hemoglobin 10.6 g/dL (13.5-17.5); Mean Corpuscular Hemoglobin 30.6 pg (28.0-32.0); Mean Corpuscular Volume 90.8 fL (80.0-100.0); Nucleated Red Blood Cells % 0.3 %
[2025-03-11 07:15] LABS: Alanine Aminotransferase 24 U/L (7-40); Albumin 3.6 g/dL (3.2-4.8); Alkaline Phosphatase 102 U/L (46-116); Anion Gap 9 (5-15); BUN/Creatinine Ratio 15.8 (10.0-20.0); Blood Urea Nitrogen 12 mg/dL (9-23); Carbon Dioxide 25 mmol/L (20-31); Chloride 102 mmol/L (98-107); Potassium 4.3 mmol/L (3.5-5.1); Sodium 136 mmol/L (136-145); Total Protein 6.2 g/dL (5.7-8.2)
[2025-03-11 07:16] LABS: Bilirubin, Total 0.3 mg/dL (0.2-1.0)
[2025-03-11 07:24] LABS: Calcium 8.4 mg/dL (8.7-10.4); Glucose 115 mg/dL (74-106)
[2025-03-11] MEDS: AMIODARONE HCL 200 MG TAB PO SCH (09:40)
--- NOTE | 2025-03-11 13:51 | DVHPN2 ---
Progress Note - Dictate Date Seen: Mar 11, 2025 Has the PT tested + for MRSA If YES, has PT been informed?: No Medical Necessity Reason Pt with a Central, PICC or Fol: Yes The following are medically ne: Central Line Subjective PT WITH ORG HEART DZ S/P CABG NOW WITH SEPSIS MYELOSUPPRESSION FINALLY ABLE TO MOUNT A WBC RESPONSE vital signs Vital Sign Date Time Temp Pulse Resp B/P (MAP) Pulse Ox O2 Delivery O2 Flow Rate FiO2 03/11/25 08:46 97.8 85 16 101/59 (73) 97 97.8 03/11/25 08:00 Room Air* 0 21 Total Intake and Output 03/10/25 03/10/25 03/11/25 15:00 23:00 07:00 Intake Total 333.28 ml 616.66 ml 800 ml Output Total 961 ml 600 ml Balance 333.28 ml -344.34 ml 200 ml medications Current Medications Medications Dose Ordered Sig/Danielle Route Start Time Stop Time Status Last Admin Dose Admin Aspirin 81 mg DAILY PO 03/01/25 10:00 03/11/25 09:40 81 MG Diagnostic Test (Pha) 1 strip ACHS 03/03/25 17:00 03/11/25 11:20 1 STRIP Insulin Human Regular HS SC 03/03/25 22:00 03/10/25 21:40 3 UNITS Insulin Human Regular AC SC 03/03/25 17:00 03/11/25 11:26 6 UNITS Dextrose 50 ml UD PRN IV 03/03/25 13:45 Apixaban 5 mg BID PO 03/03/25 22:00 03/11/25 09:40 5 MG Pantoprazole Sodium 40 mg DAILY@0600 PO 03/04/25 06:00 03/11/25 05:35 40 MG Insulin Glargine 10 units HS SC 03/06/25 22:00 03/10/25 21:40 10 UNITS Amiodarone HCl 400 mg DAILY PO 03/11/25 10:00 03/11/25 09:40 400 MG laboratory and microbiology Laboratory Tests 03/11/25 06:14 Test 03/11/25 06:14 Range/Units Serum Glucose 115 H 74-106 mg/dL Problem List N/V ABD PAIN SINUS TACHYCARDIA SECONDARY TO VOLUME DEPLETION HYPERKALEMIA MOST LIKELY SECONDARY TO ACIDOSIS METABOLIC ACIDOSIS LEUKOPENIA CONSISTENT WITH SEPSIS PMH ORGANIC HD CAD S/P CABY X1 SMALL PERICARDIAL EFFUSION POST OP PERICARDIOTOMY SYNDROME S/P POST OP AFIB/ RESOLVED HYPERLIPIDEMIA DIABETES VASCULOPATHY NEPHROPATHY R/O TYPE IV RTA WITH HYPERKALEMIA PAH SEVERE TR Assessment/Plan METABOLIC SUPPORT IV FLUID CORRET ACIDOSIS CORRECT HYPERKALEMIA LOKELMA ABX CONT SUPPORTIVE CARE HYPERKALEMIA CORRECTED LYTES WNL LEUKOCYTOSIS RESOLVED CXR RETROCARDIAC INFILTRATE SEVERE PAH/ SEVERE TR START REVATIO OR ADCIRCA REPEAT ECHO TO REASSESS PUL PRESSURE R/O PE/ CT NEGATIVE Dietary Evaluation Review Comments: Encourage and monitor PO intakes CCHO-60 Cardiac diet Offer Glucerna 240ml PO supplement BID for additional protein and energy Expected Outcomes/Goals: gradual wt gain Plan discussed with: Patient MARTHA FRY MD Mar 11, 2025 13:51
--- NOTE | 2025-03-11 17:44 | DVHPNRES ---
Progress Note Date Seen: Mar 11, 2025 Resident Creating Document: KALI COOK RESIDENT Has the PT tested + for MRSA If YES, has PT been informed?: No Medical Necessity Reason Pt with a Central, PICC or Fol: No The following are medically ne: Central Line Subjective Review of Systems [place] is a 64-year-old male with PMHx significant for diabetes who came to the hospital with chief complaints of nausea, vomiting,for 2 days fever at home with T-max of 100.1 pulse sister before admission. He is status post CABG surgery performed on 02/13 in [place]. Also he had postop Afib . He reports poor oral intake and generalized weakness. He denies chest pain, shortness of breath, palpitations, syncope, abdominal pain, or diarrhea On arrival, he was noted to be tachycardic, with heart rate fluctuating from 80 to 140 bpm, but he remained in sinus tachycardia on telemetry and EKG. No episodes of atrial fibrillation were documented Past surgical history: CABG, cataract surgery family history: sister, father had heart disease. Social history: Patient denies smoking, drinking, drug use lives with: sister at home. 03/03/2025: Patient seen in the ICU. Patient today and yesterday had bradycardia. Is on Levo 1, today he does not complain of any nausea, vomiting, diarrhea. Patient had a bowel movement yesterday. Patient had a bowel movment today, is eating. He ia able to walk. 03/04/2025: Patient seen in ICU. Patient yesterday night had a episode of on sustained atrial flutter, and episodes of bradycardia ranging from 46-60. patient is on Levophed 2, 500 bolus NS was given. Patient is on room air, alert oriented and is able to eat and has had a bowel movement today. 03/05/2025: Patient seen in ICU. Patient has had a bowel movement. , eating well, no episodes of atrial flutter or bradycardia noted. Patient is on Levo to, 250 bolus was given. Patient is on room air. 03/06/2025: Patient seen in ICU. It had episode of atrial flutter for 1 hour. Blood pressure has dropped in Levophed was increased to 4 patient was started on amnio drip. Patient reported palpitations but no chest pain or shortness of breath. Patient is on room air, today given 250 mL bolus. Patient is able to eat and had 2 bowel movements yesterday. Cardiology following. 250 mL bolus given. 03/07/25 pt is currently on norepinephrine @ 2 mcg/min. not mentioning any other complaints given 500c bolus 03/08/2025: Patient seen in ICU. Patient had no overnight events. Patient is on levo 2. Amnio 1. Repeat echo done to see severity of pericardial effusion. Cardiology following. Patient is on room air, 250 mL bolus given today. Patient does not complain of any chest pain, shortness of breath, palpitations. Orthostatic vitals checked. Midodrine 5 mg t.i.d. added 03/09/25 The patient is seen and examined at bedside this morning. He is awake, alert, oriented 4, conversing appropriately, ambulatory to bedside commode with assistance. No acute distress noted. RN report indicates axox4, ambulating to bedside commode, communicating , incisions intact, and running sinus rhythm. He denies chest pain, palpitations, dyspnea, cough, dizziness, nausea, vomiting, abdominal pain, or leg swelling.?Breathing comfortably on room air, respiratory rate 1216, SpO? 9799%. CABG sternotomy incision and graft harvest sites are clean, dry, intact without erythema or drainage. He continues to use bedside commode and urinal, voiding adequately.No dysuria or urinary discomfort. Diet: Consistent carb-60 diabetic, low sodium, cardiac diet, Glucerna 240 mL PO BID. Tolerating well without GI symptoms. Right IJ central line placed 03/01 remains in situ with CVP 34 mmHg. Plan remains to remove RIJ tomorrow pending stable hemodynamics. No fever or chills.No neurological complaints. Imaging CXR (03/08/25): * Right IJ unchanged * Persistent bilateral interstitial opacities * Trace pleural effusions * No pneumothorax * No acute change Echo (03/08/25): * EF 55% low-normal * Mild global pericardial effusion (~1 cm) * Normal valves * Normal RV function 03/10/25 The patient was evaluated at the bedside today. He is awake, alert, oriented 4, cooperative, and in no acute distress. He denies chest pain, shortness of breath, palpitations, dizziness, or syncope. Appetite stable. Tolerating cardiac/consistent carbohydrate/low-sodium diet and Glucerna BID. The patient is being downgraded from ICU to TELI following improvement in hemodynamics and respiratory stability. Reports no nausea, vomiting, diarrhea. Had one bowel movement today. Denies urinary symptoms. He is ambulating with assistance to the bedside commode, remains hemodynamically soft but stable. Incisional pain is minimal and well-controlled. Right IJ triple-lumen CVC placed on 03/01 was removed today (03/10/2025) with hemostasis achieved and no complications. Dressing intact. Norepinephrine drip was discontinued yesterday at approximately 1500 hrs. BP remains soft but responsive to midodrine 5 mg TID. No fever, chills, or infectious symptoms. Primary Kyrgyz speaking but communicates clearly in Kinyarwanda. Summary of Todays Clinical Course * Chest X-ray today: Lungs clear, mediastinum unremarkable, RIJ tip in SVC * Echo EF 55% (low-normal), trace pericardial effusion stable * CT Pulmonary Angiogram (03/05): No PE * CT Abdomen/Pelvis (02/28): post-surgical retrosternal hematoma, trace pericardial effusion, stool burden * Skin tear on sacrum treated with barrier cream; wound consult active * PT consulted for ambulation * Zosyn discontinued today per plan Midodrine was discontinued today 03/11/25 The patient was seen and examined at bedside this morning. He is lying comfortably in bed, awake, calm, cooperative, and oriented 4, with even, unlabored respirations on room air. He reports no chest pain, no dyspnea, no dizziness, no palpitations, no cough, no abdominal pain, no Wound care for pressure sore is ongoing; dressings are in place. He denies pain at the wound site. Blood pressure is stable after discontinuation of midodrine.?Most recent BP is 102/56, MAP 71.HR is 7591, overwhelmingly in sinus rhythm in the high 60s70s, with no bradycardia, no flutter, no atrial fibrillation today. Breathing comfortably on room air (SpO2 >94%). Major Treatment Change Today * Amiodarone drip discontinued * Transitioned to Amiodarone 400 mg PO daily (per cardiology) Planning to discharge tomorrow Current Medications (TODAY) * Insulin Glargine (Lantus) 10 units HS * Insulin Regular sliding scale AC/HS * Amiodarone drip (running; transitioning to PO pending cardiology) * Pantoprazole 40 mg PO daily * Eliquis 5 mg PO BID * Aspirin 81 mg PO daily * Norepinephrine drip discontinued yesterday 3 PM * Zosyn discontinued today * Atorvastatin 40 mg resumed Held home medications due to contraindications: * Metoprolol (prior bradycardia) * Clopidogrel (not indicated currently) * Farxiga, losartan, metformin, glipizide, ibuprofen held inpatient General: No fever, chills, fatigue stable Neuro: No confusion, headache, or focal deficits. Cardiac: No chest pain, palpitations. Resp: No dyspnea, wheezing. GI: No N/V, abdominal pain. : No dysuria. MSK: Mild incisional soreness only. Skin: Sacral tear noted; incisions intact. Objective vital signs Vital Sign Date Time Temp Pulse Resp B/P (MAP) Pulse Ox O2 Delivery O2 Flow Rate FiO2 03/11/25 16:53 97.7 82 16 100/61 (74) 98 97.7 03/11/25 08:00 Room Air* 0 21 Total Intake and Output 03/10/25 03/10/25 03/11/25 15:00 23:00 07:00 Intake Total 333.28 ml 616.66 ml 800 ml Output Total 961 ml 600 ml Balance 333.28 ml -344.34 ml 200 ml medications Current Medications Medications Dose Ordered Sig/Danielle Route Start Time Stop Time Status Last Admin Dose Admin Aspirin 81 mg DAILY PO 03/01/25 10:00 03/11/25 09:40 81 MG Diagnostic Test (Pha) 1 strip ACHS 03/03/25 17:00 03/11/25 16:43 1 STRIP Insulin Human Regular HS SC 03/03/25 22:00 03/10/25 21:40 3 UNITS Insulin Human Regular AC SC 03/03/25 17:00 03/11/25 16:57 3 UNITS Dextrose 50 ml UD PRN IV 03/03/25 13:45 Apixaban 5 mg BID PO 03/03/25 22:00 03/11/25 09:40 5 MG Pantoprazole Sodium 40 mg DAILY@0600 PO 03/04/25 06:00 03/11/25 05:35 40 MG Insulin Glargine 10 units HS SC 03/06/25 22:00 03/10/25 21:40 10 UNITS Amiodarone HCl 400 mg DAILY PO 03/11/25 10:00 03/11/25 09:40 400 MG Examination Patient lying in bed, in no acute distress General: Patient alert and oriented in person, place and time. Patient following commands. HEENT: Normocephalic, atraumatic, moist mucous membranes Respiratory/pulmonary: Clear lungs bilaterally, vesicular murmurs present in almost all lung arnold, no associated crackles or wheezes. Cardiovascular: Normal heart sounds S1 and S2 with no associated murmurs, sternotomy scar present with sutures Abdomen: Abdomen nondistended, there is no pain to palpation in any of the abdominal quadrants, no palpable masses. Extremities: There is no peripheral edema present at the lower extremities. Peripheral Pulses: 3+ Radial (R). 3+ Radial (L). 3+ Dorsalis pedis (R). 3+ Dorsalis pedis(L) Skin: skin tear on sacrum Neurological: Intact cranial nerves with no focal neurologic deficits laboratory and microbiology Laboratory Tests 03/11/25 06:14 Test 03/11/25 06:14 Range/Units Serum Glucose 115 H 74-106 mg/dL Microbiology Date/Time Source Procedure Growth Status 03/01/25 17:16 Nose MRSA Screen - Final Complete 02/28/25 15:36 Blood Blood Culture - Final NO GROWTH AFTER 5 DAYS OF INCUBATION. 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 rule out tamponade (none clinically) pulmonary hypertension (severe) Sinus tachycardia in the setting of sepsis/volume depletion/DKA Moderate to severe TR S/P CABG on aspirin and Eliquis at home ,Atrial Flutter,Bradycardia Hyperlipidemia Soft BP episodes; MAP <60 3 today Off vasopressors since yesterday (norepinephrine stopped 15:00) Midodrine discontinued Sinus rhythm Amiodarone drip discontinued now on Amiodarone 400 mg PO Mild postoperative anemia Trace pericardial effusion (stable) Plan * Continue aspirin 81 mg daily * Continue Amiodarone 400 mg PO daily * Continue apixaban 5 mg BID * Telemetry monitoring * Monitor for tamponade (none clinically) * Repeat echocardiogram if symptomatic * Continue atorvastatin 40 mg * Hold metoprolol due to past bradycardia * Cardiology following * Monitor MAP; goal >65 * Likely discharge tomorrow if stable RESPIRATORY Assessment Trace pleural effusions and postoperative pulmonary congestion * Breathing comfortably on room air * SpO2 9799% * CXR: persistent interstitial opacities & trace effusions Plan * Incentive spirometry q12 hrs * Encourage ambulation * Monitor for worsening effusions * PRN nebulizers only if needed GASTROINTESTINAL Assessment Septic shock likely due to gastroenteritis resolving Transaminitis * Tolerating diet * No nausea/vomiting * Albumin low 3.3 Plan * Continue cardiac/diabetic + low sodium + consistent carb-60 * Glucerna BID * Protonix 40 mg daily (GI prophylaxis) * Bowel regimen: senna + docusate RENAL / ELECTROLYTES Assessment Renal/electrolytes Acute kidney injury superimposed on CKD Hyperkalemia Hypokalemia - resolved - hyperkalemia protocol * Cr 0.75 (normal) * Electrolytes stable * Prior hyperkalemia/hypokalemia resolved Plan * BMP daily * Monitor urine output * Avoid nephrotoxins ENDOCRINE Assessment Anion gap metabolic acidosis secondary to DKA Diabetic ketoacidosis Diabetes mellitus type 2 HbA1c 7.5 Leukopenia-sepsis related * T2DM * Hyperglycemia: 224 - 137 - 259 - 228 - anion gap closed - lactic acid resolved Plan * Continue Lantus 10 units HS * Continue insulin regular AC + HS scale * Target glucose [id number] * Trend POC glucose ACHS INFECTIOUS DISEASE Assessment Septic shock likely due to gastroenteritis * No fever * WBC normal * MRSA negative * Blood cultures negative * Incisions clean Plan * Zosyn discontinued * Continue wound monitoring * Continue to monitor for infection signs * Wound care for sacral area HEMATOLOGY Assessment * Mild postoperative anemia: Hgb 10.6 * Platelets normal Plan * CBC daily * Transfuse only if Hgb <7 or symptomatic SKIN / WOUND CARE Assessment * Skin tear on sacrum * No drainage or infection Plan * Continue barrier cream * Wound care consult (already placed) * Frequent repositioning every 2 hrs DVT PROPHYLAXIS * Apixaban 5 mg BID (therapeutic) GI PROPHYLAXIS * Protonix 40 mg PO daily LINES / TUBES * RIJ CVC placed on 03/01/25 .* RIJ CVC removed today (03/10/2025) * No Law * No arterial line NUTRITION * Continue cardiac/low sodium/consistent carb diet * Glucerna BID * Monitor daily intake PT/OT * Continue daily evaluation * Ambulate with assistance CODE STATUS Full Code Discussed with patient >20 minutes. Patient understands and agrees. . ATTENDING & FAMILY DISCUSSION Family updated at bedside.Plan discussed with Dr. Peraza. Case discussed in detail with the attending physician, including the clinical presentation, diagnostic workup, and comprehensive management plan. The patient was present for the discussion and demonstrated understanding of his condition and the proposed plan. Plan discussed with: Patient My Orders My Orders Orders - KALI COOK RESIDENT Procedure Category Date Status Time Complete Blood Count LAB 03/12/25 Verified 04:00 Basic Metabolic Panel LAB 03/12/25 Verified 04:00 Dietary Evaluation Review Comments: Encourage and monitor PO intakes CCHO-60 Cardiac diet Offer Glucerna 240ml PO supplement BID for additional protein and energy Expected Outcomes/Goals: gradual wt gain Date of Service: Mar 11, 2025 Billing Provider: LAURIE PERAZA MD Common Visit Codes: [id number] INP/OBS CARE(HIGH) Secondary Visit Codes: [id number] CARE PLAN 30 MINUTES KALI COOK Mar 11, 2025 17:44 LAURIE PERAZA MD Mar 12, 2025 11:38
[2025-03-12] VITALS (7 sets, daily range): BP systolic 104–119; BP diastolic 52–62; PULSE 83–95; RESP 16–19; TEMP 97.1–98.9; O2SAT 97–98
[2025-03-12 06:03] LABS: Hematocrit 33.1 % (41.0-53.0); Hemoglobin 11.2 g/dL (13.5-17.5); Mean Corpuscular Hemoglobin 30.8 pg (28.0-32.0); Mean Corpuscular Volume 90.9 fL (80.0-100.0); Nucleated Red Blood Cells % 0.0 %
[2025-03-12 06:36] LABS: Anion Gap 10 (5-15); Carbon Dioxide 26 mmol/L (20-31); Chloride 101 mmol/L (98-107); Potassium 4.1 mmol/L (3.5-5.1); Sodium 137 mmol/L (136-145)
[2025-03-12 06:42] LABS: BUN/Creatinine Ratio 20.0 (10.0-20.0); Blood Urea Nitrogen 12 mg/dL (9-23); Glucose 87 mg/dL (74-106)
[2025-03-12 06:45] LABS: Calcium 8.4 mg/dL (8.7-10.4)
--- NOTE | 2025-03-12 07:18 | DVHPN2 ---
Progress Note - Dictate Date Seen: Mar 12, 2025 Has the PT tested + for MRSA If YES, has PT been informed?: No Medical Necessity Reason Pt with a Central, PICC or Fol: No The following are medically ne: Central Line Subjective PT WITH ORG HEART DZ S/P CABG NOW WITH SEPSIS MYELOSUPPRESSION FINALLY ABLE TO MOUNT A WBC RESPONSE vital signs Vital Sign Date Time Temp Pulse Resp B/P (MAP) Pulse Ox O2 Delivery O2 Flow Rate FiO2 03/12/25 05:00 98.9 87 19 105/58 (74) 97 98.9 03/11/25 20:00 Room Air* 0 21 Total Intake and Output 03/11/25 03/11/25 03/12/25 15:00 23:00 07:00 Intake Total 600 ml 600 ml Output Total 1200 ml Balance 600 ml -600 ml medications Current Medications Medications Dose Ordered Sig/Danielle Route Start Time Stop Time Status Last Admin Dose Admin Aspirin 81 mg DAILY PO 03/01/25 10:00 03/11/25 09:40 81 MG Diagnostic Test (Pha) 1 strip ACHS 03/03/25 17:00 03/12/25 06:11 1 STRIP Insulin Human Regular HS SC 03/03/25 22:00 03/11/25 21:17 8 UNITS Insulin Human Regular AC SC 03/03/25 17:00 03/11/25 16:57 3 UNITS Dextrose 50 ml UD PRN IV 03/03/25 13:45 Apixaban 5 mg BID PO 03/03/25 22:00 03/11/25 21:17 5 MG Pantoprazole Sodium 40 mg DAILY@0600 PO 03/04/25 06:00 03/12/25 05:46 40 MG Insulin Glargine 10 units HS SC 03/06/25 22:00 03/11/25 21:20 10 UNITS Amiodarone HCl 400 mg DAILY PO 03/11/25 10:00 03/11/25 09:40 400 MG laboratory and microbiology Laboratory Tests 03/12/25 05:15 Test 03/12/25 05:15 Range/Units Serum Glucose 87 74-106 mg/dL Problem List N/V ABD PAIN SINUS TACHYCARDIA SECONDARY TO VOLUME DEPLETION HYPERKALEMIA MOST LIKELY SECONDARY TO ACIDOSIS METABOLIC ACIDOSIS LEUKOPENIA CONSISTENT WITH SEPSIS PMH ORGANIC HD CAD S/P CABY X1 SMALL PERICARDIAL EFFUSION POST OP PERICARDIOTOMY SYNDROME S/P POST OP AFIB/ RESOLVED HYPERLIPIDEMIA DIABETES VASCULOPATHY NEPHROPATHY R/O TYPE IV RTA WITH HYPERKALEMIA PAH SEVERE TR Assessment/Plan METABOLIC SUPPORT IV FLUID CORRET ACIDOSIS CORRECT HYPERKALEMIA LOKELMA ABX CONT SUPPORTIVE CARE HYPERKALEMIA CORRECTED LYTES WNL LEUKOCYTOSIS RESOLVED CXR RETROCARDIAC INFILTRATE SEVERE PAH/ SEVERE TR START REVATIO OR ADCIRCA REPEAT ECHO TO REASSESS PUL PRESSURE R/O PE/ CT NEGATIVECLINICALLY STABLE MAY DC HOME FOLLOWUP IN 1 WEEK Dietary Evaluation Review Comments: Encourage and monitor PO intakes CCHO-60 Cardiac diet Offer Glucerna 240ml PO supplement BID for additional protein and energy Expected Outcomes/Goals: gradual wt gain Plan discussed with: Patient, Other MARTHA FRY MD Mar 12, 2025 07:18
[2025-03-12] MEDS ORDERED: INSLANTI SC (13:47)
[2025-03-12] MEDS ORDERED: AMIO200T33 PO (13:47)
[2025-03-12] MEDS ORDERED: DAPA1TAB4 PO (13:47)
[2025-03-12] MEDS ORDERED: METF-371 PO (13:47)
--- NOTE | 2025-03-12 14:28 | DVHDSRES ---
Discharge Summary Date of Admission Resident Creating Document: JOEYKARINISSA FROST RESIDENT Feb 28, 2025 at 14:42 Date of Discharge: Mar 12, 2025 Admitting Diagnosis Pericardial effusion Gastroenteritis, infectious etiology likely Coronary artery disease, history three-vessel CABG 02/13/2025 Wounds: open wound of 1x0.3cm linear scab was noted on patient's left distal sacrum/upper gluteal. Surrounding skin is pink, clean and dry. Vika care provided,applied Barrier cream and applied protective Opti foam sacral/gentle dressing. Labs/Diagnostic Data: Laboratory Results Test 03/12/25 11:16 03/12/25 05:15 03/11/25 06:14 03/10/25 03:40 POC Glucose 229 mg/dl (70-106) White Blood Count 4.9 10^3/uL (4.4-10.8) Red Blood Count 3.64 10^6/uL (4.5-5.90) Hemoglobin 11.2 g/dL (13.5-17.5) Hematocrit 33.1 % (41.0-53.0) Mean Corpuscular Volume 90.9 fL (80.0-100.0) Mean Corpuscular Hemoglobin 30.8 pg (28.0-32.0) Mean Corpuscular Hemoglobin Concent 33.8 g/dL (32.0-36.0) Red Cell Distribution Width 13.8 % (11.8-14.3) Platelet Count 205 10^3/uL (140-450) Mean Platelet Volume 7.1 fL (6.9-10.8) Neutrophils (%) (Auto) 64.6 % (37.0-80.0) Lymphocytes (%) (Auto) 24.6 % (10.0-50.0) Monocytes (%) (Auto) 10.2 % (0.0-12.0) Eosinophils (%) (Auto) 0.3 % (0.0-7.0) Basophils (%) (Auto) 0.3 % (0.0-2.0) Neutrophils # (Auto) 3.2 10 ^3/uL (1.6-8.6) Lymphocytes # (Auto) 1.2 10 ^3/uL (0.4-5.4) Monocytes # (Auto) 0.5 10 ^3/uL (0-1.3) Eosinophils # (Auto) 0 10 ^3/uL (0-0.8) Basophils # (Auto) 0 10 ^3/uL (0-0.2) Nucleated Red Blood Cells 0.0 % Sodium Level 137 mmol/L (136-145) Potassium Level 4.1 mmol/L (3.5-5.1) Chloride Level 101 mmol/L (98-107) Carbon Dioxide Level 26 mmol/L (20-31) Anion Gap 10 (5-15) Blood Urea Nitrogen 12 mg/dL (9-23) Creatinine 0.60 mg/dL (0.700-1.30) Glomerular Filtration Rate Calc 109 mL/min (>90) BUN/Creatinine Ratio 20.0 (10.0-20.0) Serum Glucose 87 mg/dL (74-106) Calcium Level 8.4 mg/dL (8.7-10.4) Total Bilirubin 0.3 mg/dL (0.2-1.0) Aspartate Amino Transferase (AST) 24 U/L (13-40) Alanine Aminotransferase (ALT) 24 U/L (7-40) Alkaline Phosphatase 102 U/L (46-116) Total Protein 6.2 g/dL (5.7-8.2) Albumin 3.6 g/dL (3.2-4.8) Differential Total Cells Counted 100.0 (100) Neutrophils % (Manual) 54 (37.0-80.0) Band Neutrophils % (Manual) 0 Lymphocytes % (Manual) 29 (10.0-50.0) Monocytes % (Manual) 17 (0-12) Eosinophils % (Manual) 0 (0-7) Basophils % (Manual) 0 (0.0-2.0) Metamyelocytes % (manual) 0 Myelocytes % (Manual) 0 Promyelocytes % (Manual) 0 Blast Cells % (Manual) 0 Reactive Lymphocytes 0 Platelet Estimate Adequate Phosphorus Level 2.6 mg/dL (2.4-5.1) Magnesium Level 2.0 mg/dL (1.6-2.6) Test 03/03/25 10:29 03/02/25 14:10 03/02/25 14:02 03/01/25 17:09 Large Platelets Few Blood Gas Specimen Type Venous Blood Gas Sample Site Vbg - n/a Blood Gas Patient Temperature 37.0 Arterial Blood Date Drawn [id number] Jose C Test N/a Venous Blood pH 7.355 (7.320-7.430) Venous Blood pCO2 at Patient Temp 28.7 mmHg (38.0-54.0) Venous Blood pO2 at Patient Temp < 36.5 mmHg (23.0-48.0) Venous Blood HCO3 15.7 mmol/L (22.0-29.0) Venous Blood Base Excess -8.3 mmol/L (-2.0-3.0) Blood Gas Modality Room air FiO2 % 21.0 Arterial Blood pH 7.393 (7.350-7.450) Arterial Blood Partial Pressure CO2 26.9 mmHg (35.0-48.0) Arterial Blood Partial Pressure O2 90.7 mmHg (83.0-108.0) Arterial Blood HCO3 16.0 mmol/L (21.0-28.0) Arterial Blood Oxygen Saturation 96.6 % (94.0-98.0) Arterial Blood Base Excess -7.6 mmol/L (-2.0-3.0) Arterial Blood Oxyhemoglobin 95.8 % (94.0-98.0) Arterial Blood Carboxyhemoglobin 0.4 % (0.5-1.5) Arterial Blood Methemoglobin 0.4 % (0.0-1.5) Blood Gas Total Hemoglobin 10.30 g/dL (13.5-17.5) Lactic Acid Level 1.9 mmol/L (0.4-2.0) Test 03/01/25 14:52 03/01/25 12:32 02/28/25 17:04 02/28/25 15:25 Beta-Hydroxybutyric Acid > 4.500 mmol/L (< 0.4) Blood Gas Liter Flow 2.00 Blood Gas Critical Value Read Back yes Blood Gas Notified Whom Blood Gas Notified Time [id number] Blood Gas Notified By mixer blender maury Urine Color Light-yellow (Yellow) Urine Clarity Clear (Clear) Urine pH 5.0 (5.0-9.0) Urine Specific [place] 1.020 (1.001-1.035) Urine Protein Trace (Negative) Urine Ketones 3+ (Negative) Urine Blood Negative /uL (Negative) Urine Nitrite Negative (Negative) Urine Bilirubin Negative (Negative) Urine Urobilinogen Normal mg/dL (Negative) Urine Leukocyte Esterase Negative /uL (Negative) Urine RBC 1 /hpf (0 - 3) Urine Microscopic WBC 2 /HPF (0-3) Urine Squamous Epithelial Cells Few /hpf (<5) Urine Bacteria None seen /hpf (None Seen) Urine Mucus Few (None Seen) Urine Glucose 4+ mg/dL (Normal) Urine Opiates Screen Neg (NEGATIVE) Urine Fentanyl Screen Neg (NEGATIVE) Urine Barbiturates Screen Neg (NEGATIVE) Urine Phencyclidine Screen Neg (NEGATIVE) Urine Amphetamines Screen Neg (NEGATIVE) Urine Benzodiazepines Screen Neg (NEGATIVE) Urine Cocaine Screen Neg (NEGATIVE) Urine Cannabinoids Screen Neg (NEGATIVE) Troponin I High Sensitivity 9 ng/L (</=54) Test 02/28/25 11:50 Erythrocyte Sedimentation Rate 36 mm/hr (0-20) Prothrombin Time 13.2 sec (9.3-11.8) Prothrombin Time INR 1.28 (0.9-1.15) Activated Partial Thromboplast Time 37.8 SEC (24.5-34.5) Hemoglobin A1c 7.5 % A1C (<5.7) C-Reactive Protein High Sensitivity > 20.00 mg/dL (<1.0) Lipase 53 U/L (12-53) Thyroid Stimulating Hormone (TSH) 2.08 uIU/mL (0.55-4.78) Other Laboratory Tests 03/12/25 05:15 Brief Hx & Hospital Course: Phani Bay is a 64-year-old male with PMHx significant for diabetes who came to the hospital with chief complaints of nausea, vomiting,for 2 days fever at home with T-max of 100.1 pulse sister before admission. He is status post CABG surgery performed on 02/13 in [place]. Also he had postop Afib . He reports poor oral intake and generalized weakness. He denies chest pain, shortness of breath, palpitations, syncope, abdominal pain, or diarrhea On arrival, he was noted to be tachycardic, with heart rate fluctuating from 80 to 140 bpm, but he remained in sinus tachycardia on telemetry and EKG. No episodes of atrial fibrillation were documented Past surgical history: CABG, cataract surgery family history: sister, father had heart disease. Social history: Patient denies smoking, drinking, drug use lives with: sister at home. 03/03/2025: Patient seen in the ICU. Patient today and yesterday had bradycardia. Is on Levo 1, today he does not complain of any nausea, vomiting, diarrhea. Patient had a bowel movement yesterday. Patient had a bowel movment today, is eating. He ia able to walk. 03/04/2025: Patient seen in ICU. Patient yesterday night had a episode of on sustained atrial flutter, and episodes of bradycardia ranging from 46-60. patient is on Levophed 2, 500 bolus NS was given. Patient is on room air, alert oriented and is able to eat and has had a bowel movement today. 03/05/2025: Patient seen in ICU. Patient has had a bowel movement. , eating well, no episodes of atrial flutter or bradycardia noted. Patient is on Levo to, 250 bolus was given. Patient is on room air. 03/06/2025: Patient seen in ICU. It had episode of atrial flutter for 1 hour. Blood pressure has dropped in Levophed was increased to 4 patient was started on amnio drip. Patient reported palpitations but no chest pain or shortness of breath. Patient is on room air, today given 250 mL bolus. Patient is able to eat and had 2 bowel movements yesterday. Cardiology following. 250 mL bolus given. 03/07/25 pt is currently on norepinephrine @ 2 mcg/min. not mentioning any other complaints given 500c bolus 03/08/2025: Patient seen in ICU. Patient had no overnight events. Patient is on levo 2. Amnio 1. Repeat echo done to see severity of pericardial effusion. Cardiology following. Patient is on room air, 250 mL bolus given today. Patient does not complain of any chest pain, shortness of breath, palpitations. Orthostatic vitals checked. Midodrine 5 mg t.i.d. added 03/09/25 The patient is seen and examined at bedside this morning. He is awake, alert, oriented 4, conversing appropriately, ambulatory to bedside commode with assistance. No acute distress noted. RN report indicates axox4, ambulating to bedside commode, communicating , incisions intact, and running sinus rhythm. He denies chest pain, palpitations, dyspnea, cough, dizziness, nausea, vomiting, abdominal pain, or leg swelling.?Breathing comfortably on room air, respiratory rate 1216, SpO? 9799%. CABG sternotomy incision and graft harvest sites are clean, dry, intact without erythema or drainage. He continues to use bedside commode and urinal, voiding adequately.No dysuria or urinary discomfort. Diet: Consistent carb-60 diabetic, low sodium, cardiac diet, Glucerna 240 mL PO BID. Tolerating well without GI symptoms. Right IJ central line placed 03/01 remains in situ with CVP 34 mmHg. Plan remains to remove RIJ tomorrow pending stable hemodynamics. No fever or chills.No neurological complaints. Imaging CXR (03/08/25): * Right IJ unchanged * Persistent bilateral interstitial opacities * Trace pleural effusions * No pneumothorax * No acute change Echo (03/08/25): * EF 55% low-normal * Mild global pericardial effusion (~1 cm) * Normal valves * Normal RV function 03/10/25 The patient was evaluated at the bedside today. He is awake, alert, oriented 4, cooperative, and in no acute distress. He denies chest pain, shortness of breath, palpitations, dizziness, or syncope. Appetite stable. Tolerating cardiac/consistent carbohydrate/low-sodium diet and Glucerna BID. The patient is being downgraded from ICU to TELI following improvement in hemodynamics and respiratory stability. Reports no nausea, vomiting, diarrhea. Had one bowel movement today. Denies urinary symptoms. He is ambulating with assistance to the bedside commode, remains hemodynamically soft but stable. Incisional pain is minimal and well-controlled. Right IJ triple-lumen CVC placed on 03/01 was removed today (03/10/2025) with hemostasis achieved and no complications. Dressing intact. Norepinephrine drip was discontinued yesterday at approximately 1500 hrs. BP remains soft but responsive to midodrine 5 mg TID. No fever, chills, or infectious symptoms. Primary Chinese speaking but communicates clearly in Surinamese. Summary of Todays Clinical Course * Chest X-ray today: Lungs clear, mediastinum unremarkable, RIJ tip in SVC * Echo EF 55% (low-normal), trace pericardial effusion stable * CT Pulmonary Angiogram (03/05): No PE * CT Abdomen/Pelvis (02/28): post-surgical retrosternal hematoma, trace pericardial effusion, stool burden * Skin tear on sacrum treated with barrier cream; wound consult active * PT consulted for ambulation * Zosyn discontinued today per plan Midodrine was discontinued today 03/11/25 The patient was seen and examined at bedside this morning. He is lying comfortably in bed, awake, calm, cooperative, and oriented 4, with even, unlabored respirations on room air. He reports no chest pain, no dyspnea, no dizziness, no palpitations, no cough, no abdominal pain, no Wound care for pressure sore is ongoing; dressings are in place. He denies pain at the wound site. Blood pressure is stable after discontinuation of midodrine.Most recent BP is 102/56, MAP 71.HR is 7591, overwhelmingly in sinus rhythm in the high 60s70s, with no bradycardia, no flutter, no atrial fibrillation today. Breathing comfortably on room air (SpO2 >94%). Major Treatment Change Today * Amiodarone drip discontinued * Transitioned to Amiodarone 400 mg PO daily (per cardiology) Clinical Stability for Discharge As of discharge: * BP stable at 105/58 * HR stable at 70s80s, sinus rhythm * Afebrile * Breathing comfortably on room air * No chest pain, no dyspnea, no gastrointestinal symptoms * Tolerating diet and medications * Labs (CBC, CMP) unremarkable * Appropriate for discharge home with outpatient follow-up time spent in discharge planning is 41 mins Consults/Reason for consult Cardiology Wound care Operations or Procedures ULTRASOUND-GUIDED RIGHT INTERNAL JUGULAR CENTRAL VENOUS CANNULATION Condition at Discharge: Stable Final Diagnosis/Problems List Coronary artery disease s/p CABG active post-operative management -POA 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 ruled out tamponade (none clinically)- LESVIA pulmonary hypertension (Stable)- Outpatient cardiology follow up- POA Sinus tachycardia in the setting of sepsis/volume depletion/DKA, resolved -POA Moderate to severe TR - Outpatient cardiology follow up- POA S/P CABG on Plavis and Eliquis at home- POA Atrial Flutter,Bradycardia- Converted to sinus rhytm-POA Hyperlipidemia - POA pleural effusions and postoperative pulmonary congestion POA Septic shock likely due to gastroenteritis resolved- POA Transaminitis/Resolved - POA Acute kidney injury due to VMN superimposed on CKD- POA hyperkalemia/hypokalemia resolved- POA Anion gap metabolic acidosis secondary to DKA, Resolved - POA Diabetic ketoacidosis, resolved POA Diabetes mellitus type 2 HbA1c 7.5 POA Leukopenia-sepsis related, resolved POA Septic shock due to gastroenteritis RESOLVED- POA * Stage 1 Pressure injury sacral, stable with wound care - POA Discharge Disposition: Home Discharge Instruct/Medications Diet: Cardiac 2g Na,low cholest Diet comment: * Low sodium * Low fat * Consistent carbohydrates (60g) Activity: No Restrictions, As Tolerated Activity comment: * Ambulate with walker * Increase activity gradually * No heavy lifting >10 lbs for 4 weeks Follow Up/Referral: 1. Cardiology Within 710 days of discharge Purpose: * Rhythm monitoring * Medication adjustment * Review amiodarone dose * Evaluate BP control * Review wound and symptoms 2. Primary Care Physician (PCP) Within 1 week Purpose: * Diabetes management * Medication review * Routine labs 3. Cardiothoracic Surgery / CABG Follow-Up In 24 weeks Purpose: * Sternotomy evaluation * Physical recovery assessment * Wound check 4. Wound Care Clinic within 7 days * For sacral pressure injury evaluation 5. Endocrinology (Optional) * For diabetes optimization Medications: Continue the following medications: Cardiac * Plavix PO daily * Atorvastatin 40 mg PO daily * Amiodarone 200 mg PO daily (converted from drip) * Eliquis 5 mg PO BID Diabetes * Insulin glargine (Lantus) 10 units SC daily * Metformin 1000 mg PO BID * Farxiga 10 mg PO daily Other Home Medications to Continue * [place]-3 fatty acids * Ketorolac eye drops (if needed) * Docusate stool softener * Lubiprostone/Clavis (if prescribed for constipation) New Medications: Amiodarone Hcl (Amiodarone Hcl) 200 Mg Tab 200 MG PO DAILY for 60 Days, #120 TAB Dapagliflozin Propanediol (Farxiga) 10 Mg Tab 10 MG PO DAILY for 60 Days, #60 TAB Insulin Glargine (Lantus) 100 Unit/Ml Inj 10 UNIT SC HS for 60 Days, #10 INJ Metformin Hydrochloride (Metformin Hcl) 850 Mg Tab 1000 MG PO BID for 60 Days, #120 TAB Continued Medications: Apixaban Base (Eliquis) 5 Mg Tab 5 MG PO BID, TAB Atorvastatin Calcium (Lipitor) 40 Mg Tab 1 TAB PO DAILY, #30 TAB 5 Refills Clopidogrel Bisulfate (Plavix) 75 Mg Tab 75 MG PO, TAB Discontinued Medications: Metoprolol Tartrate (Lopressor) 25 Mg Tb 25 MG PO Q12HR, TAB 0 Refills Care Plan: 1. Continue all medications as listed 2. Monitor blood pressure daily at home 3. Check blood glucose AC/HS; bring logs to PCP & cardiology visit 4. Continue wound care for sacral pressure injury * Apply barrier cream * Offload pressure q2 hours When to seek urgent care * Chest pain, palpitations, fainting * Shortness of breath or leg swelling * Fever >100.4F * Wound drainage or redness * Blood in stool * Uncontrolled blood sugars Scheduled Amiodarone Hcl (Amiodarone Hcl), 200 MG PO DAILY Apixaban Base (Eliquis), 5 MG PO BID, (Reported) Atorvastatin Calcium (Lipitor), 1 TAB PO DAILY, (Reported) Dapagliflozin Propanediol (Farxiga), 10 MG PO DAILY Insulin Glargine (Lantus), 10 UNIT SC HS Metformin Hydrochloride (Metformin Hcl), 1,000 MG PO BID Miscellaneous Medications Clopidogrel Bisulfate (Plavix), 75 MG PO, (Reported) Discontinued Medications Metoprolol Tartrate (Lopressor), 25 MG PO Q12HR, (Reported) 83 Discharge Statement: "Patient was advised to return to the ER or call 911 if any headaches, dizziness, shortness of breath, chest pain, abdominal pain, bleeding, fevers, or worsening of medical condition. Patient was counseled about treatment plan, medications, possible side effects, patientverbalized understanding. All questions were answered to the best of my ability. This discharge took greater then 30 minutes in planning, reviewing documentation, counseling the patient, and discussing with other team members." ASSESSMENT ASSESSMENT Hospital Course Phani Bay is a 64-year-old male with PMHx significant for diabetes who came to the hospital with chief complaints of nausea, vomiting,for 2 days fever at home with T-max of 100.1 pulse sister before admission. He is status post CABG surgery performed on 02/13 in [place]. Also he had postop Afib . He reports poor oral intake and generalized weakness. He denies chest pain, shortness of breath, palpitations, syncope, abdominal pain, or diarrhea On arrival, he was noted to be tachycardic, with heart rate fluctuating from 80 to 140 bpm, but he remained in sinus tachycardia on telemetry and EKG. No episodes of atrial fibrillation were documented Past surgical history: CABG, cataract surgery family history: sister, father had heart disease. Social history: Patient denies smoking, drinking, drug use lives with: sister at home. 03/03/2025: Patient seen in the ICU. Patient today and yesterday had bradycardia. Is on Levo 1, today he does not complain of any nausea, vomiting, diarrhea. Patient had a bowel movement yesterday. Patient had a bowel movment today, is eating. He ia able to walk. 03/04/2025: Patient seen in ICU. Patient yesterday night had a episode of on sustained atrial flutter, and episodes of bradycardia ranging from 46-60. patient is on Levophed 2, 500 bolus NS was given. Patient is on room air, alert oriented and is able to eat and has had a bowel movement today. 03/05/2025: Patient seen in ICU. Patient has had a bowel movement. , eating well, no episodes of atrial flutter or bradycardia noted. Patient is on Levo to, 250 bolus was given. Patient is on room air. 03/06/2025: Patient seen in ICU. It had episode of atrial flutter for 1 hour. Blood pressure has dropped in Levophed was increased to 4 patient was started on amnio drip. Patient reported palpitations but no chest pain or shortness of breath. Patient is on room air, today given 250 mL bolus. Patient is able to eat and had 2 bowel movements yesterday. Cardiology following. 250 mL bolus given. 03/07/25 pt is currently on norepinephrine @ 2 mcg/min. not mentioning any other complaints given 500c bolus 03/08/2025: Patient seen in ICU. Patient had no overnight events. Patient is on levo 2. Amnio 1. Repeat echo done to see severity of pericardial effusion. Cardiology following. Patient is on room air, 250 mL bolus given today. Patient does not complain of any chest pain, shortness of breath, palpitations. Orthostatic vitals checked. Midodrine 5 mg t.i.d. added 03/09/25 The patient is seen and examined at bedside this morning. He is awake, alert, oriented 4, conversing appropriately, ambulatory to bedside commode with assistance. No acute distress noted. RN report indicates axox4, ambulating to bedside commode, communicating , incisions intact, and running sinus rhythm. He denies chest pain, palpitations, dyspnea, cough, dizziness, nausea, vomiting, abdominal pain, or leg swelling.?Breathing comfortably on room air, respiratory rate 1216, SpO? 9799%. CABG sternotomy incision and graft harvest sites are clean, dry, intact without erythema or drainage. He continues to use bedside commode and urinal, voiding adequately.No dysuria or urinary discomfort. Diet: Consistent carb-60 diabetic, low sodium, cardiac diet, Glucerna 240 mL PO BID. Tolerating well without GI symptoms. Right IJ central line placed 03/01 remains in situ with CVP 34 mmHg. Plan remains to remove RIJ tomorrow pending stable hemodynamics. No fever or chills.No neurological complaints. Imaging CXR (03/08/25): * Right IJ unchanged * Persistent bilateral interstitial opacities * Trace pleural effusions * No pneumothorax * No acute change Echo (03/08/25): * EF 55% low-normal * Mild global pericardial effusion (~1 cm) * Normal valves * Normal RV function 03/10/25 The patient was evaluated at the bedside today. He is awake, alert, oriented 4, cooperative, and in no acute distress. He denies chest pain, shortness of breath, palpitations, dizziness, or syncope. Appetite stable. Tolerating cardiac/consistent carbohydrate/low-sodium diet and Glucerna BID. The patient is being downgraded from ICU to TELI following improvement in hemodynamics and respiratory stability. Reports no nausea, vomiting, diarrhea. Had one bowel movement today. Denies urinary symptoms. He is ambulating with assistance to the bedside commode, remains hemodynamically soft but stable. Incisional pain is minimal and well-controlled. Right IJ triple-lumen CVC placed on 03/01 was removed today (03/10/2025) with hemostasis achieved and no complications. Dressing intact. Norepinephrine drip was discontinued yesterday at approximately 1500 hrs. BP remains soft but responsive to midodrine 5 mg TID. No fever, chills, or infectious symptoms. Primary Chinese speaking but communicates clearly in [place]e. Summary of Todays Clinical Course * Chest X-ray today: Lungs clear, mediastinum unremarkable, RIJ tip in SVC * Echo EF 55% (low-normal), trace pericardial effusion stable * CT Pulmonary Angiogram (03/05): No PE * CT Abdomen/Pelvis (02/28): post-surgical retrosternal hematoma, trace pericardial effusion, stool burden * Skin tear on sacrum treated with barrier cream; wound consult active * PT consulted for ambulation * Zosyn discontinued today per plan Midodrine was discontinued today 03/11/25 The patient was seen and examined at bedside this morning. He is lying comfortably in bed, awake, calm, cooperative, and oriented 4, with even, unlabored respirations on room air. He reports no chest pain, no dyspnea, no dizziness, no palpitations, no cough, no abdominal pain, no Wound care for pressure sore is ongoing; dressings are in place. He denies pain at the wound site. Blood pressure is stable after discontinuation of midodrine.Most recent BP is 102/56, MAP 71.HR is 7591, overwhelmingly in sinus rhythm in the high 60s70s, with no bradycardia, no flutter, no atrial fibrillation today. Breathing comfortably on room air (SpO2 >94%). 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 ruled out tamponade (none clinically)- LESVIA pulmonary hypertension (Stable)- Outpatient cardiology follow up- POA Sinus tachycardia in the setting of sepsis/volume depletion/DKA, resolved -POA Moderate to severe TR - Outpatient cardiology follow up- POA S/P CABG on Plavis and Eliquis at home- POA Atrial Flutter,Bradycardia- Converted to sinus rhytm-POA Hyperlipidemia - POA pleural effusions and postoperative pulmonary congestion POA Septic shock likely due to gastroenteritis resolved- POA Transaminitis/Resolved - POA Acute kidney injury due to VMN superimposed on CKD- POA hyperkalemia/hypokalemia resolved- POA Anion gap metabolic acidosis secondary to DKA, Resolved - POA Diabetic ketoacidosis, resolved POA Diabetes mellitus type 2 HbA1c 7.5 POA Leukopenia-sepsis related, resolved POA Septic shock due to gastroenteritis RESOLVED- POA * Stage 1 Pressure injury sacral, stable with wound care - POA Date of Service: Mar 12, 2025 Billing Provider: LAURIE PERAZA MD Common Visit Codes: [id number] DISCH DAY >30min KALI COOK RESIDENT Mar 12, 2025 14:28 LAURIE PERAZA MD Mar 14, 2025 12:28
[2025-03-12] MEDS ORDERED: ATORVASTATIN 20 MG TAB PO SCH (22:00)
== END 2025-03-12 19:50 | disposition home or self-care (01) | DRG 720 ==
LOC: ER 11:28 → OVERFLOW 14:42 → ICU WEST 03-03 00:23 → TELE-CENTR 03-10 16:56
PROVIDERS: ADMIT Internal Medicine; ATTEND Internal Medicine
PROC: 02HV33Z Insertion of Infusion Device into Superior Vena Cava, Percutaneous Approach (ICD-10-PCS; principal; 2025-03-01)
PROC: B548ZZA Ultrasonography of Superior Vena Cava, Guidance (ICD-10-PCS; 2025-03-01)
DX: A41.9 Sepsis, unspecified organism (principal); R65.21 Severe sepsis with septic shock; N17.0 Acute kidney failure with tubular necrosis; E11.10 Type 2 diabetes mellitus with ketoacidosis without coma; I31.39 Other pericardial effusion (noninflammatory); I27.20 Pulmonary hypertension, unspecified; L89.151 Pressure ulcer of sacral region, stage 1; E11.65 Type 2 diabetes mellitus with hyperglycemia; D64.9 Anemia, unspecified; J90 Pleural effusion, not elsewhere classified; N18.9 Chronic kidney disease, unspecified; I07.1 Rheumatic tricuspid insufficiency; E86.0 Dehydration; I48.91 Unspecified atrial fibrillation; E86.9 Volume depletion, unspecified; E87.5 Hyperkalemia; A09 Infectious gastroenteritis and colitis, unspecified; E78.5 Hyperlipidemia, unspecified; I25.10 Atherosclerotic heart disease of native coronary artery without angina pectoris; R74.01 Elevation of levels of liver transaminase levels; E87.6 Hypokalemia; I48.92 Unspecified atrial flutter; Z95.1 Presence of aortocoronary bypass graft; Z79.82 Long term (current) use of aspirin; Z79.84 Long term (current) use of oral hypoglycemic drugs
CPT/HCPCS: 36415; 36556; 36600; 71045; 71046; 71275; 74176; 80048; 80053; 80307; 81001; 82010; 82805; 82962; 83036; 83605; 83690; 83735; 84100; 84132; 84443; 84484; 85007; 85025; 85027; 85610; 85652; 85730; 86141; 87040; 87081; 93005; 93306; 94640; 96365; 96375; 97110; 97116; 97163; 97530; 99291; G0378; J1815; J2405; J2470; J2543; J3480; J3490